=== PATIENT | male | born 1965 | race Caucasian/White ===

== ENCOUNTER → 2020-12-08 14:13 | Outpatient (CLI) | payer BC, SELFPAY ==
--- NOTE | 2020-12-08 | US_ITS ---
APPROVED REPORT Exam Type: Ankle to Brachial Index Parking Lot Attendant: Mari Baugh RT(R) Indications Rest Pain: Bilaterally Cold Sensitivity Patient states that his left 2nd, 3rd, 4th, and 5th digits become cold and discolored after standing for more than 15 minutes. Risk Factors Hyperlipidemia Diabetes Pressures/Indices Right Indices Left Indices Brachial 119.00 mmHg Brachial 115.00 mmHg Low Thigh 143.00 mmHg 1.20 Low Thigh 129.00 mmHg 1.08 Calf 159.00 mmHg 1.34 Calf 145.00 mmHg 1.22 Ankle(PT) 148.00 mmHg 1.24 Ankle(PT) 145.00 mmHg 1.22 Ankle(DP) 124.00 mmHg 1.04 Ankle(DP) 155.00 mmHg 1.30 Digit 98.00 mmHg 0.82 Digit 110.00 mmHg 0.92 Findings RT ANGELICA=1.24 LT ANGELICA=1.3 RT TBI=0.8 LT TBI=0.9 Normal pulses Normal waveforms Conclusion RT ANGELICA=1.24 LT ANGELICA=1.3 RT TBI=0.8 LT TBI=0.9 Normal pulses Normal waveforms Normal appearing resting noninvasive lower extremity arterial study. Electronically signed by : Ren Salazar MD 12/09/2020 14:48:57
== END ==
PROVIDERS: PCP Family Medicine; Visit Provider Family Medicine
DX: M79.605 Pain in left leg (principal); I73.9 Peripheral vascular disease, unspecified
CPT/HCPCS: 93923

== ENCOUNTER → 2021-12-17 09:20 | Outpatient (CLI) | payer BC, SELFPAY ==
--- NOTE | 2021-12-17 09:27 | XR_ITS ---
FINAL REPORT CLINICAL HISTORY: RT HIP PAIN FINDINGS: RIGHT HIP Two views of the right hip including an AP pelvis demonstrate no acute fracture or dislocation. The joint spaces appear normal. There are mild degenerative changes of both hips. No soft tissue abnormality is seen. IMPRESSION: Mild degenerative change of both hips. Reviewed, Interpreted and Dictated by Vamsi Madrigal III, MD Transcribed by Amee Badillo Authenticated by Vamsi Madrigal III, MD on 12/17/2021 10:09:30 AM [facility]
== END ==
PROVIDERS: PCP Family Medicine; Visit Provider Family Medicine
DX: M25.551 Pain in right hip (principal)
CPT/HCPCS: 73502

== ENCOUNTER 2023-03-07 00:25 | Emergency (ER) | payer BC, SELFPAY ==
[2023-03-07 00:37] VITALS: BP 152/85; PULSE 57; RESP 14; TEMP 36.2; O2SAT 94; BMI 25.1
[2023-03-07 01:03] LABS: Basophils # 0.1 K/mm3 (0-0.2); Basophils % 0.8 % (0.1-2.0); Chloride 96 mmol/L (98-107); Eosinophils # 0.2 K/mm3 (0.0-0.4); Eosinophils % 2.1 % (0.1-12.0); Hematocrit 49.3 % (42.0-52.0); Lymphocytes # 3.1 K/mm3 (0.7-4.5); Lymphocytes % 41.2 % (10-50); Mean Corpuscular HGB Conc 32.6 g/dL (31.8-35.4); Mean Corpuscular Hemoglobin 29.1 pg (27.0-31.2); Mean Corpuscular Volume 89.5 fl (80-94); Mean Platelet Volume 7.6 fl (7.4-10.4); Monocytes # 0.5 K/mm3 (0.1-1.0); Monocytes % 6.7 % (1.7-9.3); Neutrophils # 3.7 K/mm3 (1.8-7.8); Neutrophils % 49.2 % (37.0-80.0); Platelet Count 318 K/mm3 (142-424); Red Cell Distribution Width 12.4 % (11.5-17.5); White Blood Count 7.5 K/mm3 (4.8-10.8)
[2023-03-07 01:04] LABS: Potassium 3.4 mmoL/L (3.5-5.1); Sodium 139 mmol/L (136-145)
[2023-03-07 01:06] LABS: Alanine Aminotransferase 36 U/L (12-78); Albumin Level 4.4 g/dl (3.5-5.0); Albumin/Globulin Ratio 1.7 (1.1-1.8); Alkaline Phosphatase 66 U/L (38-126); Aspartate Amino Transferase 35 U/L (17-59); Bilirubin,Total 0.7 mg/dl (0.2-1.3); Blood Urea Nitrogen 21 mg/dl (9-20); Creatinine Clearance Estimated 100 mL/min (50-200); Estimated Glomerular Filt Rate 87 ml/min (>60); GFR (African American) 105 ML/MIN (>60); Globulin 2.6 g/dL (1.3-3.2)
[2023-03-07 01:07] LABS: Anion Gap 16.4 mEq/L (5-15); Calcium 8.7 mg/dl (8.4-10.2); Carbon Dioxide 30 mmol/L (22.0-30.0); Glucose 154 mg/dl (74-100)
--- NOTE | 2023-03-07 02:03 | HMH.EDALLER ---
Discharge Plan Disposition Patient Disposition: Home, Self-Care Condition: Good Prescriptions Prescriptions: New famotidine [Pepcid] 20 mg tablet 20 mg PO BID Qty: 20 0RF cetirizine [Zyrtec] 10 mg tablet 10 mg PO DAILY Qty: 20 0RF prednisone 20 mg tablet 20 mg PO BID 5 Days Qty: 10 0RF Referrals Follow up/Referrals: Schuyler Salcido MD [Primary Care Provider] - See instructions Clinical Impressions Clinical Impression: Allergic reaction, Tick bite Discharge ED Provider: Tracey Boyce Allergic React/Insect Bite HPI General Chief complaint: Allergic Reaction Stated complaint: Possible allergic reaction-tick bite Time Seen by Provider: 03/07/23 00:28 Mode of Arrival - ED Triage: Family Vehicle Source of Information: Patient and Spouse Limitations: No Limitations History of Present Illness HPI narrative: Is a 57-year-old occasion male who is here secondary to 2 things. Monday night he noticed a tick bite to his right shoulder blade region on the back. Patient stated that he squeezed it and it popped out. Patient then this evening developed a diffuse rash to his upper extremity chest belly back and lower extremity. Patient stated it was itching. Then he noticed that he might have some issue with difficulty breathing that is why he brought himself in the ER. Patient denies difficulty swallowing, tongue swelling or lip swelling. He has not had any wheezing with difficulty breathing. complaint: allergic reaction and hives Onset (ago): hour(s) Exposure: unknown Symptoms: rash and itching Treatment prior to arrival: none Allergies Allergy/AdvReac Type Severity Reaction Status Date / Time PENICILLIN Allergy Intermediate I-HIVES Uncoded 10/17/17 14:22 Previous Allergic Reaction History: none Severity: moderate Related Data Previous Rx's Medication Instructions Recorded cetirizine 10 mg tablet (Zyrtec) 10 mg PO DAILY #20 tabs 03/07/23 famotidine 20 mg tablet (Pepcid) 20 mg PO BID #20 tabs 03/07/23 prednisone 20 mg tablet 20 mg PO BID 5 days #10 tabs 03/07/23 [facility] Disclaimer: The information contained in this section may have been updated after the patient was seen, as this information can be updated by other users. Social History Smoking Status: Never smoker alcohol intake: never current occupational status: employed Travel in the last 8 weeks: None ROS Obtained: Yes All systems reviewed & no additional complaints except as documented Allergic/Immunologic Allergic/Immunologic: Reports urticaria Physical Exam General General appearance: alert and in distress Head Head exam: atraumatic, normocephalic and normal inspection Eye Eye exam: Present normal appearance, PERRL and EOMI; Absent scleral icterus or conjunctival redness ENT ENT exam: Present normal exam, normal oropharynx and mucous membranes moist Neck Neck exam: Present normal inspection, full ROM and trachea midline Chest Chest inspection: Present normal inspection and symmetric chest wall rise Respiratory Respiratory exam: Present normal lung sounds bilaterally Cardiovascular Cardiovascular exam: Present regular rate, normal rhythm, normal heart sounds, +S1 and +S2 Abdominal Exam Abdominal exam: Present soft and normal bowel sounds; Absent distention, tenderness, guarding, rebound or rigidity Extremities Exam Extremities exam: Present normal inspection, full ROM, tenderness (Posterior shoulder region small area that is a bite with no tick or foreign body seen), normal capillary refill and edema Back Exam Back exam: Present normal inspection and full ROM; Absent tenderness, CVA tenderness (R) or CVA tenderness (L) Neurological Exam Neurological exam: Present alert, oriented X3 and normal gait Psychiatric Psychiatric exam: Present normal affect and normal mood Skin Skin exam: Present rash and erythema; Absent warm, dry, intact, normal color, cyanosis,
[2023-03-07 02:26] VITALS: BP 134/78; PULSE 61; RESP 14; TEMP 36.2; O2SAT 95
== END 2023-03-07 02:34 | disposition home or self-care (01) ==
PROVIDERS: Emergency Provider Emergency Medicine; PCP Family Medicine
DX: S40.261A Insect bite (nonvenomous) of right shoulder, initial encounter (principal); R21 Rash and other nonspecific skin eruption; W57.XXXA Bitten or stung by nonvenomous insect and other nonvenomous arthropods, initial encounter
CPT/HCPCS: 80053; 85025; 96361; 96374; 96375; 99284

== ENCOUNTER 2024-11-14 19:46 | Observation (INO) | payer BC, SELFPAY ==
[2024-11-14 19:47] VITALS: BP 148/74; PULSE 59; RESP 18; TEMP 36.6; O2SAT 98; BMI 26.2
[2024-11-14 21:01] VITALS: BP 138/77; PULSE 64; O2SAT 98
--- NOTE | 2024-11-14 21:05 | CT_ITS ---
PROCEDURE INFORMATION: Exam: CT Head Without Contrast Exam date and time: 11/14/2024 10:16 PM Age: 59 years old Clinical indication: Other: Vertigo TECHNIQUE: Imaging protocol: Computed tomography of the head without contrast. Radiation optimization: All CT scans at this facility use at least one of these dose optimization techniques: automated exposure control; mA and/or kV adjustment per patient size (includes targeted exams where dose is matched to clinical indication); or iterative reconstruction. COMPARISON: CT HEAD/BRAIN WO CON 11/14/2024 10:16 PM FINDINGS: Brain: Normal. No hemorrhage. Unremarkable white matter. No mass effect. Cerebral ventricles: No ventriculomegaly. Paranasal sinuses: Visualized sinuses are unremarkable. No fluid levels. Mastoid air cells: Visualized mastoid air cells are well aerated. Bones: Unremarkable. No acute fracture. Soft tissues: Unremarkable. IMPRESSION: No acute intracranial abnormality.
--- NOTE | 2024-11-14 21:05 | CT_ITS ---
PROCEDURE INFORMATION: Exam: CTA Neck With Contrast Exam date and time: 11/14/2024 10:19 PM Age: 59 years old Clinical indication: Vertigo TECHNIQUE: Imaging protocol: Computed tomographic angiography of the neck with contrast. Exam focused on the cervical segments of the vasculature. 3D rendering (Not supervised by radiologist): MIP and/or 3D reconstructed images were created by the technologist. Radiation optimization: All CT scans at this facility use at least one of these dose optimization techniques: automated exposure control; mA and/or kV adjustment per patient size (includes targeted exams where dose is matched to clinical indication); or iterative reconstruction. Contrast material: ISOVUE; Contrast volume: 80 ml; Contrast route: INTRAVENOUS (IV); COMPARISON: CT ANGIO HEAD 11/14/2024 10:19 PM FINDINGS: Right common carotid artery: No stenosis. No dissection or occlusion. Right internal carotid artery: No stenosis of the extracranial segment. No dissection or occlusion. Right external carotid artery: No occlusion or stenosis of the origin. Left common carotid artery: No stenosis. No dissection or occlusion. Left internal carotid artery: No stenosis of the extracranial segment. No dissection or occlusion. Left external carotid artery: No occlusion or stenosis of the origin. Right vertebral artery: No stenosis. No dissection or occlusion. Left vertebral artery: No stenosis. No dissection or occlusion. Soft tissues: Normal. No significant soft tissue swelling. Bones/joints: Mild degenerative disc disease C4-C7 levels. C2-C3 anterior/posterior congenital fusion. Other findings: No visible atheromatous plaquing in the carotid or vertebral artery systems. IMPRESSION: No visible arterial stenosis/occlusion. REFERENCES: NASCET CRITERIA. The degree of stenosis in the cervical segment of the internal carotid artery is based on NASCET criteria. Normal is no stenosis. Mild is less than 50% stenosis. Moderate is 50-69% stenosis. Severe is 70% to 99% stenosis. Total occlusion is no detectable patent lumen.
--- NOTE | 2024-11-14 21:05 | CT_ITS ---
PROCEDURE INFORMATION: Exam: CTA Head With Contrast, Arteriography Exam date and time: 11/14/2024 10:19 PM Age: 59 years old Clinical indication: Vertigo TECHNIQUE: Imaging protocol: Computed tomographic angiography of the head with contrast. Exam focused on the arteries. 3D rendering (Not supervised by radiologist): MIP and/or 3D reconstructed images were created by the technologist. Radiation optimization: All CT scans at this facility use at least one of these dose optimization techniques: automated exposure control; mA and/or kV adjustment per patient size (includes targeted exams where dose is matched to clinical indication); or iterative reconstruction. Contrast material: ISOVUE; Contrast volume: 80 ml; Contrast route: INTRAVENOUS (IV); COMPARISON: CT HEAD/BRAIN WO CON 11/14/2024 10:16 PM FINDINGS: ANTERIOR CIRCULATION: Right internal carotid artery: Intracranial segment is patent with no significant stenosis. No aneurysm. Right middle cerebral artery: No occlusion or significant stenosis. No aneurysm. Right anterior cerebral artery: No occlusion or significant stenosis. No aneurysm. Left internal carotid artery: Intracranial segment is patent with no significant stenosis. No aneurysm. Left middle cerebral artery: No occlusion or significant stenosis. No aneurysm. Left anterior cerebral artery: No occlusion or significant stenosis. No aneurysm. POSTERIOR CIRCULATION: Right vertebral artery: No occlusion or significant stenosis. No aneurysm. Left vertebral artery: No occlusion or significant stenosis. No aneurysm. Basilar artery: No occlusion or significant stenosis. No aneurysm. Right posterior cerebral artery: No occlusion or significant stenosis. No aneurysm. Left posterior cerebral artery: No occlusion or significant stenosis. No aneurysm. Brain: No definite mass, mass effect, or midline shift. Cerebral ventricles: No ventriculomegaly. Bones/joints: Unremarkable. No acute fracture. Soft tissues: Unremarkable. Venous structures appear normal. Other findings: Large caliber bilateral posterior communicating arteries IMPRESSION: No large vessel occlusion/stenosis.
--- NOTE | 2024-11-14 21:13 | HMH.EDGENADL ---
Discharge Plan Disposition Patient Disposition: Admitted Condition: Good Clinical Impressions Clinical Impression: Vertigo Discharge ED Provider: Amanda Mora General Adult HPI General Chief complaint: Weakness Stated complaint: weak dizzy Time Seen by Provider: 11/14/24 20:58 Mode of Arrival: Wheelchair Source of Information: Patient and Spouse Limitations: Physical Limitations Description of Symptoms (Recalled from ER Triage Doc. by RN): Pt presents to the ED for weakness and dizziness X 4 hours. Pt states this has happened before but usually goes away faster. Pt has been putting peroxide in his per Dr. Munoz's orders. Pt states this does make him dizzy. He's unsure if that's why he's dizzy tonight. Pt does not have pain and is bedside. Pt is A&O*4 and has no deficits at this time. History of Present Illness HPI narrative: This patient is a 59-year-old male who has a history of alpha gal syndrome and diabetes presenting to the emergency department for evaluation with concern for dizziness. Patient states that he is been having a lot of ear and sinus issues, recently treated for nose infection with Dr. Munoz. He notes that he also has wax impaction in his ears for which he has been using peroxide. Today, he states that he experienced sudden onset dizziness/vertigo as well as nausea that is worse with any sort of movement or position change. He is fine if he lies still. He notes it was so bad he could not walk into the house because his balance was off. He has no vision changes, numbness, tingling, unilateral weakness, or other concerns. He states this has happened before with ear issues but usually goes away faster Related Data Previous Rx's ?Medication ?Instructions ?Recorded cetirizine 10 mg tablet (Zyrtec) 10 mg PO DAILY #20 tabs 03/07/23 famotidine 20 mg tablet (Pepcid) 20 mg PO BID #20 tabs 03/07/23 prednisone 20 mg tablet 20 mg PO BID 5 days #10 tabs 03/07/23 cetirizine 10 mg tablet (Zyrtec) 10 mg PO DAILY #30 tabs 11/14/24 fluticasone propionate 50 1 spray intranasal DAILY #16 grams 11/14/24 mcg/actuation nasal spray,suspension (Flonase Allergy Relief) meclizine 25 mg tablet 25 mg PO QID PRN dizziness #20 tabs 11/14/24 prednisone 20 mg tablet 40 mg (2 x 20 mg) PO DAILY 4 days 11/14/24 #8 tabs Allergies Allergy/AdvReac Type Severity Reaction Status Date / Time PENICILLIN Allergy Intermediate I-HIVES Uncoded 10/17/17 14:22 [facility] Disclaimer: The information contained in this section may have been updated after the patient was seen, as this information can be updated by other users. Social History Smoking Status: Unknown if ever smoked alcohol intake: never current occupational status: employed Travel in the last 8 weeks: None Have you lived/traveled outside [place] in past 30 days?: No Contact w/someone who lives/traveled outside US past 30 days?: No Exposure to someone with infectious disease in past 14 days?: No Do you have a fever (greater than 100.4 F or 38 C)?: No Have you tested positive for COVID-19: No Exposed to someone with COVID-19 in past 14 days?: No Do you have a sore throat?: No Do you have a cough?: No Do you have any weakness?: Yes Do you have any diarrhea?: No Are you experiencing any unusual bleeding?: No Do you have any muscle aches/pain?: No Do you have any abdominal pain?: No Are you experiencing loss of taste or smell?: No Other Medical History Have you received the Flu Vaccine for this season: Yes Have you received the Pneumonia Vaccine: No ROS Obtained: Yes All systems reviewed & no additional complaints except as documented Physical Exam General General appearance: alert and in no apparent distress Head Head exam: atraumatic and normocephalic Eye Eye exam: Present normal appearance, PERRL, EOMI and nystagmus (Horizontal unidirectional beating nystagmus that is fatigable) ENT ENT exam: Present normal exam, normal oropharynx, mucous membranes moist, normal external ear exam and other (Unable to visualize tympanic membranes bilaterally secondary to wax impaction) Neck Neck exam: Present normal inspection, full ROM and trachea midline; Absent tenderness Chest Chest inspection: Present normal inspection and symmetric chest wall rise; Absent tenderness Respiratory Respiratory exam: Present normal lung sounds bilaterally; Absent respiratory distress, wheezes, stridor or accessory muscle use Cardiovascular Cardiovascular exam: Present regular rate and normal rhythm Abdominal Exam Abdominal exam: Present soft; Absent distention, tenderness or guarding Extremities Exam Extremities exam: Present normal inspection, full ROM and normal capillary refill; Absent tenderness or edema Back Exam Back exam: Present normal inspection and full ROM; Absent tenderness Neurological Exam Neurological exam: Present alert, oriented X3, CN II-XII intact and other (Neurologically intact, intact coordination); Absent motor sensory deficit Psychiatric Psychiatric exam: Present normal affect and normal mood Skin Skin exam: Present warm and dry Medical Decision Making Medical Records Medical records reviewed: Yes I reviewed the patient's medical records. Screening: Per USPSTF and CDC recommendations, given the prevalence of disease in our region, it is our hospital?s policy to screen for HIV and viral Hepatitis for all patients aged 18 and over and those with ongoing risk factors. Hasmukh Inquiry Pt receiving controlled substance: No Vital Signs: 11/14/24 19:47 11/14/24 21:01 11/14/24 21:31 Temperature 97.9 F Temperature Source Oral Pulse Rate 64 57 L Pulse Rate [Left] 59 L Respiratory Rate 18 Blood Pressure 138/77 122/68 Blood Pressure [Right Arm] 148/74 H Blood Pressure Mean 86 82 Blood Pressure Mean [Right Arm] 98 02 Sat by Pulse Oximetry 98 98 100 Oxygen Delivery Method Room Air 11/14/24 22:00 Temperature Temperature Source Pulse Rate 53 L Pulse Rate [Left] Respiratory Rate Blood Pressure 124/66 Blood Pressure [Right Arm] Blood Pressure Mean 76 Blood Pressure Mean [Right Arm] 02 Sat by Pulse Oximetry 97 Oxygen Delivery Method Lab Data Lab results reviewed: Yes I reviewed the patient's lab results. Lab Results 11/14/24 20:15: WBC 14.3 H, RBC 4.98, Hgb 15.0, Hct 45.2, MCV 90.8, MCH 30.1, MCHC 33.2, RDW 12.0, Plt Count 292, MPV 11.3 H, Neut % (Auto) 85.4 H, Lymph % (Auto) 8.5 L, [place] % (Auto) 4.3, Eos % (Auto) 0.7, Baso % (Auto) 0.5, Neut # (Auto) 12.2 H, Lymph # (Auto) 1.2, Cuming # (Auto) 0.6, Eos # (Auto) 0.1, Baso # (Auto) 0.1, Sodium 135 L, Potassium 4.0, Chloride 104, Carbon Dioxide 25, Anion Gap 10.0, BUN 20, Creatinine 0.80, Estimated Creat Clear 115, Estimated GFR 99, Est GFR ( Amer) 119, Glucose 141 H, Calcium 9.2, Magnesium 1.9, Total Bilirubin 1.1, AST 29, ALT 23, Alkaline Phosphatase 81, Troponin I < 0.01, Total Protein 6.8, Albumin 4.5, Globulin 2.3, Albumin/Globulin Ratio 2.0 H, TSH 0.87, Thyroxine (T4) 14.8 H, HCV Ab GIGI w/Rflx PCR Qn Negative, HIV Ag/Ab Combo Qual Negative 11/14/24 20:15 11/14/24 20:15 Orders (Tests/Meds): ED MEDICATIONS Generic Name Dose Route Start Last Admin Trade Name Grant PRN Reason Stop Dose Admin Meclizine HCl 25 mg 11/15/24 00:26 Meclizine 25mg Tablet PO 12/15/24 00:25 Q8HP PRN Vertigo Sodium Chloride 10 ml 11/14/24 22:26 11/14/24 22:26 Sodium Chloride 0.9% 10ml Syr (Rad Only) IV 12/14/24 22:25 10 ml NEEDED PRN Administration Maintain IV Site Discontinued Medications Generic Name Dose Route Start Last Admin Trade Name Grant PRN Reason Stop Dose Admin Diazepam 5 mg 11/14/24 23:26 11/14/24 23:38 Diazepam 5mg Tablet PO 11/14/24 23:27 5 mg ONCE ONE Administration Fluticasone Propionate 2 spray 11/14/24 21:06 11/14/24 21:29 Fluticasone Prop 50mcg Nasal [place] 16gm NS 11/14/24 21:07 2 sprays ONCE ONE Administration Iopamidol 80 ml 11/14/24 22:26 11/14/24 22:27 Iopamidol-370 (76%);100ml Bottle IV 11/14/24 22:27 80 ml ONCE ONE Administration Meclizine HCl 25 mg 11/14/24 21:06 11/14/24 21:21 Meclizine 25mg Tablet PO 11/14/24 21:07 25 mg ONCE ONE Administration Prednisone 40 mg 11/14/24 21:06 01/16/25 21:21 Prednisone 20mg Tab PO 11/14/24 21:07 40 mg ONCE ONE Administration Scopolamine 1 each 11/14/24 23:26 11/14/24 23:38 Scopolamine 1.5mg/72hrs Patch TD 11/14/24 23:27 1 each ONCE ONE Administration Sodium Chloride 50 ml 11/14/24 22:26 11/14/24 22:27 0.9 % Sodium Chloride 50 Ml Vial IV 11/14/24 22:27 50 ml ONCE ONE Administration ORDERS Category Date Time Status CT angio head Stat Cat Scan 11/14/24 21:[address] angio neck Stat Cat Scan 11/14/24 21:[address] head/brain wo con Stat Cat Scan 11/14/24 21:05 Completed CBC w/Auto Diff [Complete Blood Count Auto Diff] Stat Lab 11/14/24 20:15 Completed CMP [Comprehensive Metabolic Panel] Stat Lab 11/14/24 20:15 Completed HIV Combo Routine Lab 11/14/24 20:15 Completed Hepatitis C Ab Qual. W/ RFX Routine Lab 11/14/24 20:15 Completed MAG [Magnesium] Stat Lab 11/14/24 20:15 Completed T4 (Thyroxine) Stat Lab 11/14/24 20:15 Completed TSH [Thyroid Stimulating Hormone] Stat Lab 11/14/24 20:15 Completed Trop I [Troponin I] Stat Lab 11/14/24 20:15 Completed Troponin I Q3H Lab 11/15/24 00:21 Received Troponin I Q3H Lab 11/15/24 03:15 Ordered ECG Data Tracing #1: I reviewed this ECG and interpreted as documented below: Sinus bradycardia with a ventricular to 57 bpm. Bundle branch block. No acute STEMI. ECG initial impression date: 11/15/24 ECG initial impression time: 21:29 Medical Decision Narrative: In summary, this patient is a 59-year-old male presenting to the Emergency Department for evaluation of dizziness. Differential diagnoses considered include but are not limited to BPPV, M?ni?re's disease, vestibular neuritis, CVA. Ruling out the most morbid conditions drove assessment. It should be noted patient's history includes diabetes and alpha gal syndrome which may or may not be at goal therapy. This complicates all aspects of care by increasing patient's risk for morbidity. On exam, the patient is very well-appearing. He is neurologically intact with no discoordination. I am unable to visualize tympanic membranes bilaterally secondary to wax impaction, however he does not want us to flush his ears because he has worsening symptoms with that in the past. He has fatigable unidirectional horizontal beating nystagmus which is reassuring. Hints exam is reassuring for peripheral cause of vertigo as opposed to central. Given this and the lack of neurologic symptoms otherwise, I do not feel that stroke is likely, but given his risk factors with diabetes we will obtain stroke CT scans just to be on the safe side. Workup included CBC, CMP, troponin, EKG, CT head, CT angiogram head and neck. He was given oral meclizine, prednisone, and intranasal Flonase for symptomatic improvement. I independently interpreted CT scans prior to the radiologist read and noted obvious large space-occupying brain lesion, no intracranial hemorrhage. Please see their read for final interpretation. CT scans reassuring. Labs were obtained that demonstrated mild leukocytosis which is nonspecific. He also has mild hyponatremia. T4 was mildly elevated with normal TSH.. On reassessment, patient had minimal improvement after administration of interventions above. I tried Lorenzo maneuver to both sides without good improvement. I then also tried oral Valium and a scopolamine patch. Overall, patient did not have any improvement in his symptoms and is not able to trial ambulation as he states he is too dizzy to walk. Given this, I called and had an interactive discussion with his primary care provider, Dr. Munoz, who is admitting the patient for further evaluation and management in stable condition. Critical Care Critical Care Time Critical Care Time: No
[2024-11-14] MEDS: predniSONE 20MG TAB 40 MG PO (21:21)
[2024-11-14] MEDS: MECLIZINE 25MG TABLET 25 MG PO (21:21)
--- NOTE | 2024-11-14 21:21 | ECG_ITS ---
APPROVED REPORT Exam: Resting ECG HR:57 bpm ECG Measurements Heart Rate 57 AXES IL 145 P 56 QRSd 133 QRS 89 QT 461 T 46 QTc 455 Conclusion SINUS BRADYCARDIA RIGHT BUNDLE BRANCH BLOCK [120+ ms QRS DURATION, UPRIGHT V1, 40+ ms S IN I/aVL/V4/V5/V6] Electronically signed by : DAILY HORTON, 11/15/2024 00:50:32
[2024-11-14] MEDS: FLUTICASONE PROP 50MCG NASAL SPRAY 16GM 2 SPRAY NS (21:29)
[2024-11-14 21:31] VITALS: BP 122/68; PULSE 57; O2SAT 100
[2024-11-14 21:43] LABS: HIV Combo NEGATIVE (Negative)
[2024-11-14 21:51] LABS: Hepatitis C Ab Qual. W/ RFX NEGATIVE (Negative)
[2024-11-14 21:55] LABS: Basophils # 0.1 K/mm3 (0-0.2); Basophils % 0.5 % (0.1-2.0); Eosinophils # 0.1 K/mm3 (0.0-0.4); Eosinophils % 0.7 % (0.1-12.0); Hematocrit 45.2 % (42.0-52.0); Lymphocytes # 1.2 K/mm3 (0.7-4.5); Lymphocytes % 8.5 % (10-50); Mean Corpuscular HGB Conc 33.2 g/dL (31.8-35.4); Mean Corpuscular Hemoglobin 30.1 pg (27.0-31.2); Mean Corpuscular Volume 90.8 fl (80-94); Mean Platelet Volume 11.3 fl (7.4-10.4); Monocytes # 0.6 K/mm3 (0.1-1.0); Monocytes % 4.3 % (1.7-9.3); Neutrophils # 12.2 K/mm3 (1.8-7.8); Neutrophils % 85.4 % (37.0-80.0); Platelet Count 292 K/mm3 (142-424); Red Blood Count 4.98 M/mm3 (4.60-6.20); White Blood Count 14.3 K/mm3 (4.8-10.8)
[2024-11-14 21:59] LABS: Albumin Level 4.5 g/dl (3.5-5.0); Chloride 104 mmol/L (98-107)
[2024-11-14 22:00] VITALS: BP 124/66; PULSE 53; O2SAT 97
[2024-11-14 22:00] LABS: Sodium 135 mmol/L (136-145)
[2024-11-14 22:02] LABS: Alanine Aminotransferase 23 U/L (12-78); Alkaline Phosphatase 81 U/L (38-126); Aspartate Amino Transferase 29 U/L (17-59); Bilirubin,Total 1.1 mg/dl (0.2-1.3); Blood Urea Nitrogen 20 mg/dl (9-20); Carbon Dioxide 25 mmol/L (22.0-30.0); Creatinine Clearance Estimated 115 mL/min (50-200); Estimated Glomerular Filt Rate 99 ml/min (>60); GFR (African American) 119 ML/MIN (>60)
[2024-11-14 22:03] LABS: Calcium 9.2 mg/dl (8.4-10.2); Globulin 2.3 g/dL (1.3-3.2); Glucose 141 mg/dl (74-100); Magnesium 1.9 mg/dl (1.6-2.3); Total Protein,Serum 6.8 g/dl (6.3-8.2)
[2024-11-14 22:16] LABS: Troponin I < 0.01 ng/ml (0.00-0.034)
[2024-11-14 22:20] LABS: T4 (Thyroxine) 14.8 ug/dl (5.53-11.0)
[2024-11-14] MEDS: SODIUM CHLORIDE 0.9% 10ML SYR (RAD ONLY) 10 ML IV (22:26)
[2024-11-14] MEDS: 0.9 % SODIUM CHLORIDE 50 ML VIAL IV (22:27)
[2024-11-14] MEDS: IOPAMIDOL-370 (76%);100ML BOTTLE 80 ML IV (22:27)
[2024-11-14 22:33] LABS: Thyroid Stimulating Hormone 0.87 uIU/mL (0.465-4.68)
[2024-11-14] MEDS: SCOPOLAMINE 1.5MG/72HRS PATCH 1 EACH TD (23:38)
[2024-11-14] MEDS: diazePAM 5MG TABLET 5 MG PO (23:38)
--- NOTE | 2024-11-15 00:45 | PC.NURSE ---
Report called to Makayla
[2024-11-15 00:59] LABS: Troponin I < 0.01 ng/ml (0.00-0.034)
--- NOTE | 2024-11-15 01:20 | PC.NURSE ---
Patient arrived to floor via stretcher from ED at 01:19.
[2024-11-15 01:25] VITALS: BP 134/64; PULSE 57; RESP 16; TEMP 36.6; O2SAT 95; BMI 24.9
[2024-11-15 01:40] VITALS: BP 134/64; PULSE 65; RESP 20; TEMP 36.9; O2SAT 95
[2024-11-15 03:56] LABS: Troponin I < 0.01 ng/ml (0.00-0.034)
[2024-11-15 04:00] VITALS: BP 133/90; PULSE 58; RESP 16; TEMP 36.6; O2SAT 95; BMI 24.9
[2024-11-15 08:00] VITALS: BP 122/55; PULSE 53; RESP 18; TEMP 36.4; O2SAT 94
--- NOTE | 2024-11-15 08:30 | P.PN_ITS ---
Subjective *Date: 11/15/24 *Time: 08:58 Interval history: Mr. Barron is a 59-year-old male who had abrupt onset of vertigo around 4 PM yesterday. He has never had anything like this before. He states his mother does have a history of inner ear infection with vertigo. He has been sick recently with a sinus infection and was treated in the office of [facility]. He states the infection was improving before this vertigo hit. He presented to the ER for evaluation. He had a head CT, head CTA, and neck CTA all of which were normal. He was given meclizine, prednisone, diazepam, and a scopolamine patch was placed. This morning, the patient states his dizziness has improved but he has not been up moving. He is hungry and would like to try to eat. Medical Exam Vital signs and Labs for Last 24 Hours: Vital Signs Temp Pulse Pulse Resp BP BP Pulse Ox 11/15/24 06:48 11/15/24 05:00 11/15/24 04:00 97.8 F 58 L 16 133/90 95 11/15/24 02:55 11/15/24 01:40 98.4 F 65 20 134/64 11/15/24 01:30 11/15/24 01:25 97.8 F 57 L 16 134/64 95 11/15/24 01:00 11/14/24 22:00 53 L 124/66 97 11/14/24 21:31 57 L 122/68 100 11/14/24 21:01 64 138/77 98 11/14/24 19:47 97.9 F 59 L 18 148/74 H 98 O2 Del Method 11/15/24 06:48 Room Air 11/15/24 05:00 Room Air 11/15/24 04:00 Room Air 11/15/24 02:55 Room Air 11/15/24 01:40 Room Air 11/15/24 01:30 Room Air 11/15/24 01:25 Room Air 11/15/24 01:00 Room Air 11/14/24 22:00 11/14/24 21:31 11/14/24 21:01 11/14/24 19:47 Room Air Intake and Output 11/14/24 11/15/24 11/15/24 19:59 03:59 11:59 Output Total 1400 / 1400 Balance -1400 / -1400 Output: Output, Urine Amount 1400 / 1400 Other: Number of Unmeasured Voids 0 Weight 183 lb 174 lb 1.6 oz 174 lb 1.585 oz Patient Weight 11/15/24 11:59 Weight 174 lb 1.585 oz Laboratory Results - last 24 hr 11/14/24 20:15: WBC 14.3 H, RBC 4.98, Hgb 15.0, Hct 45.2, MCV 90.8, MCH 30.1, MCHC 33.2, RDW 12.0, Plt Count 292, MPV 11.3 H, Neut % (Auto) 85.4 H, Lymph % (Auto) 8.5 L, [place] % (Auto) 4.3, Eos % (Auto) 0.7, Baso % (Auto) 0.5, Neut # (Auto) 12.2 H, Lymph # (Auto) 1.2, [place] # (Auto) 0.6, Eos # (Auto) 0.1, Baso # (Auto) 0.1, Sodium 135 L, Potassium 4.0, Chloride 104, Carbon Dioxide 25, Anion Gap 10.0, BUN 20, Creatinine 0.80, Estimated Creat Clear 115, Estimated GFR 99, Est GFR ( Amer) 119, Glucose 141 H, Calcium 9.2, Magnesium 1.9, Total Bilirubin 1.1, AST 29, ALT 23, Alkaline Phosphatase 81, Troponin I < 0.01, Total Protein 6.8, Albumin 4.5, Globulin 2.3, Albumin/Globulin Ratio 2.0 H, TSH 0.87, Thyroxine (T4) 14.8 H, HCV Ab GIGI w/Rflx PCR Qn Negative, HIV Ag/Ab Combo Qual Negative 11/15/24 00:21: Troponin I < 0.01 11/15/24 03:20: Troponin I < 0.01 I & O for Labs for Last 24 Hours: Intake & Output 11/12/24 11/13/24 11/14/24 11/15/24 11:59 11:59 11:59 11:59 Output Total 1399 / 1400 Balance -1399 / -1400 Weight 174 lb 1.585 oz Constitutional: Present no acute distress Head: Present atraumatic Respiratory: Present CTA bilaterally Cardiac: Present Reg Rate and Rhythm GI: Present soft and normal bowel sounds; Absent distention or tenderness Extremities: Absent edema, clubbing or cyanosis Skin: Present intact Neuro: Present Cranial Nerve 2-12 Intact, alert, awake and oriented x 3 Assessment and Plan *Assessment and plan (1) Vertigo: Status: Acute Category: Medical Code(s): R42 - Dizziness and giddiness (2) Alpha-gal syndrome: Status: Acute Category: Medical Code(s): Z91.014 - Allergy to mammalian meats Plan Will try and get patient up and see if he can move around the room without dizziness. Will start a diet this am. Likely home around lunch. H&P/Discharge summary to follow. Dr. Munoz entry - Saw patient, agree with above note.
--- NOTE | 2024-11-15 09:32 | HMH.PHAINT1 ---
Pharmacy Intervention Comments: VERIFIED MEDICATIONS WITH OUTPATIENT PHARMACY. CONFIRMED MEDICATIONS WITH PATIENT.
--- NOTE | 2024-11-15 11:55 | PC.NURSE ---
pt tolerated breakfast well with no complaints of n/v. pt ambulated from the bed to bathroom independently with no complaints of dizziness, fatigue, or ringing in ears. pt states he feels much better today than when he came in.
--- NOTE | 2024-11-15 13:39 | HMH.PHAINT1 ---
Pharmacy Intervention Comments: COUNSELED PATIENT ON MEDICATIONS PRIOR TO DISCHARGE. PATIENT VERBALIZED UNDERSTANDING.
--- NOTE | 2024-11-15 13:50 | P.HPDS_ITS ---
General Admission date:: 11/15/24 Discharge date: 11/15/24 *Admission Date: 11/15/24 *Chief complaint: dizziness *History of present illness: Mr. Barron is a 59-year-old male who had abrupt onset of vertigo around 4 PM yesterday. He has never had anything like this before. He states his mother does have a history of inner ear infection with vertigo. He has been sick recently with a sinus infection and [facility] He states the infection was improving before this vertigo hit. He presented to the ER for evaluation. He had a head CT, head CTA, and neck CTA all of which were normal. He was given meclizine, prednisone, diazepam, and a scopolamine patch was placed. This morning, the patient states his dizziness has improved but he has not been up moving. He is hungry and would like to try to eat. [facility] Disclaimer: The information contained in this section may have been updated after the patient was seen, as this information can be updated by other users. Medical History (Updated 11/15/24 @ 08:[address]) Tick bite Wedge compression fracture of L1 vertebra Concussion Alpha-gal syndrome Social History (Updated 11/15/24 @ 01:36 by Miroslava Berg RN) Smoking Status: Unknown if ever smoked alcohol intake: never current occupational status: employed Travel in the last 8 weeks: None Have you lived/traveled outside [place] in past 30 days?: No Contact w/someone who lives/traveled outside US past 30 days?: No Exposure to someone with infectious disease in past 14 days?: No Do you have a fever (greater than 100.4 F or 38 C)?: No Have you tested positive for COVID-19: No Exposed to someone with COVID-19 in past 14 days?: No Do you have a sore throat?: No Do you have a cough?: No Do you have any weakness?: Yes Are you experiencing any nausea/vomitting?: No Do you have any diarrhea?: No Are you experiencing any unusual bleeding?: No Do you have any muscle aches/pain?: No Do you have any abdominal pain?: No Are you experiencing loss of taste or smell?: No Other Medical History Have you received the Flu Vaccine for this season: No Have you received the Pneumonia Vaccine: No Review of Systems Constitutional Constitutional: Denies fatigue, Denies fever(s), Reports headache(s) and Denies weakness Eyes Eyes: Denies blurry vision and Denies diplopia ENT Ears, Nose, Mouth, and Throat: Reports dizziness, Reports headache(s), Denies nasal congestion and Denies sore throat *Cardiovascular Cardiovascular: Denies chest pain and Denies dyspnea *Respiratory Respiratory: Denies cough and Denies dyspnea *Gastrointestinal Gastrointestinal: Denies abdominal pain, Reports nausea and Denies vomiting *Genitourinary Genitourinary: Denies difficulty urinating and Denies dysuria *Musculoskeletal Musculoskeletal: Denies arthralgias *Neurologic Neurologic: Reports dizziness, Reports headache(s) and Denies weakness Endocrine Endocrine: Denies fatigue Exam Data for Last 24 hours Vital signs and Labs for Last 24 Hours: Temp Pulse Resp BP Pulse Ox O2 Del Method 97.5 F L 53 L 18 122/55 L 94 L Room Air 11/15/24 08:00 11/15/24 08:00 11/15/24 08:00 11/15/24 08:00 11/15/24 08:00 11/15/24 13:00 Laboratory Results - last 24 hr 11/14/24 20:15: WBC 14.3 H, RBC 4.98, Hgb 15.0, Hct 45.2, MCV 90.8, MCH 30.1, MCHC 33.2, RDW 12.0, Plt Count 292, MPV 11.3 H, Neut % (Auto) 85.4 H, Lymph % (Auto) 8.5 L, [place] % (Auto) 4.3, Eos % (Auto) 0.7, Baso % (Auto) 0.5, Neut # (Auto) 12.2 H, Lymph # (Auto) 1.2, [place] # (Auto) 0.6, Eos # (Auto) 0.1, Baso # (Auto) 0.1, Sodium 135 L, Potassium 4.0, Chloride 104, Carbon Dioxide 25, Anion Gap 10.0, BUN 20, Creatinine 0.80, Estimated Creat Clear 115, Estimated GFR 99, Est GFR ( Amer) 119, Glucose 141 H, Calcium 9.2, Magnesium 1.9, Total Bilirubin 1.1, AST 29, ALT 23, Alkaline Phosphatase 81, Troponin I < 0.01, Total Protein 6.8, Albumin 4.5, Globulin 2.3, Albumin/Globulin Ratio 2.0 H, TSH 0.87, Thyroxine (T4) 14.8 H, HCV Ab GIGI w/Rflx PCR Qn Negative, HIV Ag/Ab Combo Qual Negative 11/15/24 00:21: Troponin I < 0.01 11/15/24 03:20: Troponin I < 0.01 I & O for Last 24 hours: Intake & Output 11/13/24 11/14/24 11/15/24 11/16/24 11:59 11:59 11:59 11:59 Output Total 1400 / 1400 Balance -1400 / -1400 Weight 174 lb 1.585 oz Constitutional Constitutional: no acute distress *Routine HEENT Exam Head: Present normocephalic and atraumatic Eye: Present EOMI and PERRL ENT: Present mucous membranes moist *Routine Neck Exam Neck: Present supple and full ROM *Routine Respiratory Exam Respiratory: Present CTA bilaterally *Routine Cardiovascular Exam Cardiovascular: Present RRR *Routine Abdominal Exam Abdominal: Present soft and normoactive bowel sounds; Absent tenderness *Routine Rectal Exam Rectal:: deferred *Routine Genitalia Exam Genitalia:: deferred *Routine Extremities Exam Extremities: Absent cyanosis, clubbing or edema *Routine Skin Exam Skin: Present intact; Absent erythema *Routine Neurological Exam Neurological: Present alert and oriented X3 Meds Home Medications and Allergies Home Medications ?Medication ?Instructions ?Recorded ?Confirmed ?Type dapagliflozin propanediol 10 mg 10 mg PO DAILY 11/15/24 11/15/24 History tablet (Farxiga) fluticasone propionate 50 1 spray intranasal DAILY 11/15/24 11/15/24 History mcg/actuation nasal spray,suspension meclizine 25 mg tablet 25 mg PO QIDP PRN Dizziness #30 11/15/24 Rx tabs metformin 500 mg tablet,extended 1,000 mg PO BID 11/15/24 11/15/24 History release 24 hr pioglitazone 30 mg tablet 30 mg PO DAILY 11/15/24 11/15/24 History prednisone 20 mg tablet 40 mg PO DAILY 11/15/24 11/15/24 History New Prescriptions to Start Prescriptions: meclizine Marvin,Harvinder Allergies Allergy/AdvReac Type Severity Reaction Status Date / Time Beef Containing Products Allergy Hives Verified 11/15/24 01:48 Milk Containing Products Allergy Hives Verified 11/15/24 01:48 (Dairy) Pork/Porcine Containing Allergy Hives Verified 11/15/24 01:48 Products PENICILLIN Allergy Intermediate I-HIVES Uncoded 10/17/17 14:22 Hospital Course Hospital Course Hospital Course: The patient's dizziness resolved and he was able to get up and move about his room. He was stable to be discharged on meclizine and will f/u in the office of [facility]. Results Data Completed and Pending Labs on day of discharge: Labs from last 24 hours 11/15/24 11/15/24 11/14/24 03:20 00:21 20:15 WBC 14.3 H RBC 4.98 Hgb 15.0 Hct 45.2 MCV 90.8 MCH 30.1 MCHC 33.2 RDW 12.0 Plt Count 292 MPV 11.3 H Neut % (Auto) 85.4 H Lymph % (Auto) 8.5 L [place] % (Auto) 4.3 Eos % (Auto) 0.7 Baso % (Auto) 0.5 Neut # (Auto) 12.2 H Lymph # (Auto) 1.2 [place] # (Auto) 0.6 Eos # (Auto) 0.1 Baso # (Auto) 0.1 Sodium 135 L Potassium 4.0 Chloride 104 Carbon Dioxide 25 Anion Gap 10.0 BUN 20 Creatinine 0.80 Estimated Creat Clear 115 Estimated GFR 99 Est GFR ( Amer) 119 Glucose 141 H Calcium 9.2 Magnesium 1.9 Total Bilirubin 1.1 AST 29 ALT 23 Alkaline Phosphatase 81 Troponin I < 0.01 < 0.01 < 0.01 Total Protein 6.8 Albumin 4.5 Globulin 2.3 Albumin/Globulin Ratio 2.0 H TSH 0.87 Thyroxine (T4) 14.8 H HCV Ab GIGI w/Rflx PCR Qn Negative HIV Ag/Ab Combo Qual Negative DS: Diagnosis Discharge Diagnosis (1) Vertigo: Status: Acute Code(s): R42 - Dizziness and giddiness (2) Alpha-gal syndrome: Status: Acute Code(s): Z91.014 - Allergy to mammalian meats Discharge Plan Disposition Patient Disposition: Home, Self-Care Condition: Good Follow up Plan Follow up with: Harvinder Munoz MD [Primary Care Provider] - 01/23/25 11:30 am Prescriptions/Medication Reconciliation: Continued pioglitazone 30 mg tablet 30 mg PO DAILY Patient Comments: TAKE 1 TABLET BY MOUTH ONCE DAILY metformin 500 mg tablet extended release 24 hr 1,000 mg PO BID Patient Comments: TAKE 2 TABLETS BY MOUTH TWICE DAILY dapagliflozin propanediol [Farxiga] 10 mg tablet 10 mg PO DAILY Patient Comments: TAKE 1 TABLET BY MOUTH ONCE DAILY prednisone 20 mg Tablet 40 mg PO DAILY fluticasone propionate 50 mcg/actuation [place],Suspension 1 spray INTRANASAL DAILY Rx Instructions: administer into each nostril meclizine 25 mg Tablet 25 mg PO QIDP PRN (Reason: Dizziness) Qty: 30 0RF Problem Reconciliation Problems Reviewed?: Yes Patient Discharge Instructions ACTIVITY: Limited activity DIET: regular diet Patient Instructions: DI for Vertigo Print Language: Barbadian Providers Primary Care Provider: Harvinder Munoz Admit Provider: Harvinder Munoz Attending Provider: Harvinder Munoz
--- NOTE | 2024-11-18 11:24 | SW/DCPLANNER ---
Spoke with patient on the phone. Patient stated that he is doing very well. Patient stated that he is doing very well and went back to work today. Patient stated that he has no concerns or questions at this time. Xiomy Villanueva
== END 2024-11-15 14:58 | disposition home or self-care (01) ==
LOC: ER 11-15 00:27 → 2ND 11-15 00:30
PROVIDERS: Admitting Provider Family Medicine; Emergency Provider Emergency Medicine; PCP Family Medicine; Visit Provider Family Medicine
DX: R42 Dizziness and giddiness (principal); H61.23 Impacted cerumen, bilateral; E11.9 Type 2 diabetes mellitus without complications; Z79.84 Long term (current) use of oral hypoglycemic drugs; Z79.899 Other long term (current) drug therapy
CPT/HCPCS: 36415; 70450; 70496; 70498; 80053; 83735; 84436; 84443; 84484; 85025; 86803; 87389; 93005; 99285; G0378; Q9967

== ENCOUNTER 2024-11-26 09:39 | Outpatient (RCR) | payer BC, SELFPAY ==
--- NOTE | 2024-11-26 11:53 | HMH.PTOPEV ---
PT Outpatient Evaluation Rehab PT Outpatient Evaluation Start: 11/26/24 09:55 Freq: Status: Active Protocol: Document 11/26/24 11:13 EDDIE (Rec: 11/26/24 11:53 EDDIE [id number]) E-signed By Fantasma Steve, PT Outpatient Therapy Subjective History Subjective History This is the initial PT eval for Levi Barron, 59 yowm who presents with c/o neck pain chronically for many years (~ 30) with this episode beginning ~ 2-3 wks ago. He reports pain is worse with certain activities, specifically desk work, and feels tight most of the time . He reports no c/o numbness or tingling at this time. He had CT scan performed which shows multilevel cervical DDD. Chief Complaint Pain,Stiff Symptom Type Ache Symptoms Relieved By Rest/Positioning Symptoms Aggravated By Physical Activity Prior Functional Limitations None Current Functional Limitations Desk Work/Reading,Recreation Activity Symptom Description Intermittent,Activity Dependent Level of pain today (0-10) 6 Pain scale - at its best (0-10) 0 Pain scale - at its worst (0-10) 8 Cervical Eval Palpation Cervical Muscles R Upper Trapezius,L Upper Trapezius Cervical/Thoracic Palpation Findings Muscle Guarding Posture Head/C-Spine Posture Sitting Position Flexed Head/C-Spine Posture Standing Position Flexed Flexibility Deficits Upper Trapezius Muscle Length (R) Mild Tightness,(L) Mild Tightness Levaetor Scapulae Muscle Length (R) Mild Tightness,(L) Mild Tightness Passive Joint Mobility Cervical PIVM Dec: R C3/4 L C3/4 R C4/5 L C4/5 R C5/6 L C5/6 R C6/7 L C6/7 WNL: R OA L OA R AA L AA R C2/3 L C2/3 R C7/T1 L C7/T1 AROM Cervical Spine Extension Active Range of 0-55 Motion (degrees) Cervical Spine Flexion Active Range of 0-20 Motion (degrees) Cervical Spine Right Lateral Flexion 0-30 Active Range of Motion (degrees) Cervical Spine Left Lateral Flexion 0-30 Active Range of Motion (degrees) Cervical Spine Right Rotation Active 0-60 Range of Motion (degrees) Cervical Spine Left Rotation Active 0-55 Range of Motion (degrees) MMT Bilateral Deltoid (C5) 5 Normal Biceps Brachii Strength Grade 5 Normal Wrist Extension Strength Grade 4 Good Triceps Brachii Strength Grade 5 Normal Wrist Flexion Strength Grade 4 Good Extensor Pollicis Longus Strength Grade 5 Normal Finger Abduction Strength Grade 5 Normal Special Test C-Spine Foraminal Compression ([place]) Negative Left,Negative Right Test C-Spine Foraminal Distraction Test Positive C-Spine Compression Test Negative Left,Negative Right Neck Disability Index Neck Disability Index Section 1: Pain Intensity The pain is moderate at the moment Section 2: Personal Care (washing, I can look after myself dressing, etc.) normally without causing extra pain Section 3: Lifting I can lift heavy weights but it gives extra pain Section 4: Reading I can read as much as I want with moderate pain in my neck Section 5: Headaches I have slight headaches, which come infrequently Section 6: Concentration I can concentrate fully when I want to with slight difficulty Section 7: Work I cannot do my usual work Section 8: Driving I can drive my car without any neck pain Section 9: Sleeping I have no trouble sleeping Section 10: Recreation I am able to engage in a few of my usual recreation activities because NDI Score 13 Outpatient Therapy Assessment Impairments Problems/Impairmments Palpation Tenderness,Impaired Range of Motion,Impaired Strength,Impaired Endurance, Impaired Household Care, Impaired Recreational Activities,Impaired Desk/ Computer Activities,Impaired Self Care/Self Management Prognosis Rehab Potential Good Comment Skilled therapy is indicated to reduce pain in cervical spine and upper thoracic regions, improve flexibility, improve scapular stability, and reduce frequency of headaches in order to return pt to PLOF. Clinical Impression Consistent with Diagnosis Yes Short Term Goals Number of Weeks 2 Increase Range of Motion Yes: C-spine by 5 deg all dir Improve Ability For Household Care Yes: without pain Improve Neck Disability Index Score Yes: 11 or less Decrease Subjective C/O Pain Yes: 5/10 at worst in neck Patient to be Ind w/ HEP Yes Fpc Goals Number of Weeks 4 Increase Range of Motion Yes: C-spine by 10 deg all dir Return to Recreational Activities Yes: without pain Improve Tolerance to Work Activities Yes: without pain Improve Neck Disability Index Score Yes: 9 or less Decrease Subjective C/O Pain Yes: 3/10 at worst in neck Patient to be Ind w/ Advanced HEP Yes Outpatient Therapy Plan of Care Treatment Plan May Include Therapeutic Exercise Including Home Yes Exercise Program Manual Therapy Techniques Yes Neuromuscular Re-education Yes Therapeutic Activities to Return to Yes Previous Functional/Work Level ADL/Self Care Education Yes Mechanical Traction Yes Thermal Modalities Yes Electrical Stimulation Yes Ultrasound/Phonophoresis Yes Massage Yes Eval/Re-Eval Yes Frequency Times per week 3 Duration Number of Weeks 4 Addendums This patient is a candidate for social No or vocational rehab? Patient/Guardian verbally acknowledges Yes understanding of treatment program and consents to further treatment? Patient/Guardian verbally acknowledges Yes understanding of diagnosis, prognosis and goals for treatment? Eval Complexity PT Charges 73466 - High Complexity Shoulder/Elbow Eval Shoulder Objective Measurements Elbow Objective Measurements PHYSICIAN CERTIFICATION: I certify the specified therapy services for Levi Barron are required, authorized, and reviewed every 30 days.
== END 2024-11-26 23:59 | disposition home or self-care (01) ==
LOC: PT 09:39
PROVIDERS: PCP Family Medicine; Visit Provider Family Medicine
DX: R42 Dizziness and giddiness (principal); M50.90 Cervical disc disorder, unspecified, unspecified cervical region; M53.82 Other specified dorsopathies, cervical region
CPT/HCPCS: 97014; 97110; 97140; 97163; G0283

== ENCOUNTER 2024-12-20 12:23 | Emergency (ER) | payer BC, SELFPAY ==
[2024-12-20] VITALS (10 sets, daily range): BP systolic 102–190; BP diastolic 51–106; PULSE 53–60; RESP 11–18; TEMP 36.8; O2SAT 96–98; BMI 24.8
--- NOTE | 2024-12-20 13:02 | ECG_ITS ---
APPROVED REPORT Exam: Resting ECG HR:57 bpm ECG Measurements Heart Rate 57 AXES KS 135 P -23 QRSd 142 QRS 98 QT 458 T 36 QTc 452 Conclusion SINUS BRADYCARDIA RIGHT BUNDLE BRANCH BLOCK [120+ ms QRS DURATION, UPRIGHT V1, 40+ ms S IN I/aVL/V4/V5/V6] ABNORMAL ECG UNCONFIRMED REPORT Electronically signed by : MARIE SIERRA, 12/21/2024 06:26:19
--- NOTE | 2024-12-20 13:05 | HMH.EDGENADL ---
Discharge Plan Disposition Patient Disposition: Home, Self-Care Prescriptions Prescriptions: No Action pioglitazone 30 mg tablet 30 mg PO DAILY Patient Comments: TAKE 1 TABLET BY MOUTH ONCE DAILY metformin 500 mg tablet extended release 24 hr 1,000 mg PO BID Patient Comments: TAKE 2 TABLETS BY MOUTH TWICE DAILY dapagliflozin propanediol [Farxiga] 10 mg tablet 10 mg PO DAILY Patient Comments: TAKE 1 TABLET BY MOUTH ONCE DAILY fluticasone propionate 50 mcg/actuation [place],Suspension 1 spray INTRANASAL DAILY Rx Instructions: administer into each nostril celecoxib 200 mg capsule 200 mg PO DAILY promethazine-DM 6.25-15 mg/5 mL syrup 5 ml PO Q6HP PRN (Reason: Nausea And Vomiting) Patient Comments: TAKE 5 ML BY MOUTH EVERY 6 HOURS NEEDED tizanidine 4 mg tablet 4 mg PO TID sumatriptan succinate 100 mg tablet 100 mg PO DIRECTED Patient Comments: TAKE ONE TABLET BY MOUTH AT ONSET OF MIGRAINE. IF SYMPTOMS PERSIST, A SECOND DOSE MAY BE TAKEN IN 2 HOURS. DO NOT EXCEED 2 DOSES IN A 24 HOUR PERIOD, UNLESS OTHERWISE INSTRUCTED BY YOUR PHYSICIAN diazepam 2 mg tablet 2 mg PO HSP PRN (Reason: Sleep) Patient Comments: TAKE 1 TABLET BY MOUTH NEEDED AT BEDTIME cefdinir 300 mg capsule 300 mg PO BID Patient Comments: TAKE 1 CAPSULE BY MOUTH TWICE DAILY Referrals Follow up/Referrals: Harvinder Munoz MD [Primary Care Provider] - See instructions Activity Restrictions/Add. Instructions Additional Instructions/Restrictions: No emergent medical condition identified today. You are focally tender over your greater occipital nerve and therefore a occipital nerve block was performed is possible this is occipital neuralgia. Please follow-up with neurology as discussed. Clinical Impressions Clinical Impression: Chronic headache, Occipital neuralgia of right side Print Language Print Language: [place]errat[place] Discharge ED Provider: South Huang General Adult HPI <South Huang MD - Last Filed: 12/20/24 15:24> General Chief complaint: Headache Stated complaint: dizziness head ache Time Seen by Provider: 12/20/24 12:39 Mode of Arrival: Ambulatory Source of Information: Patient Limitations: No Limitations Description of Symptoms (Recalled from ER Triage Doc. by RN): Pt presents with c/o right sided headache x 1 hour. Pt states it feels like his head is going to explode. Pt states he has been getting frequent headaches since . PCP has prescribed muscle relaxers and anti-inflammatory, meclizine. Pt is also on an antibiotic for fluid on his ear currently History of Present Illness HPI narrative: Please note that above description of symptoms, in this electronic medical record under categorization of recalled from ER triage doctor by RN are reflective of an initial nursing assessment, however, is not reflective of my full history and physical exam that was personally taken and clarified. Consequentially, this preceding description of symptoms, which may include the patient's categorized chief complaint in the EMR, do not reflect my personal clinical impression, and the ultimate description of history of present illness and patient stated complaints should be deferred to this section of the note. Unless stated otherwise or congruent with this section of the note, additional signs, symptoms, or incongruence should be interpreted as inaccurate with my clinical impression. Related Data Home Medications ?Medication ?Instructions ?Recorded ?Confirmed dapagliflozin propanediol 10 mg 10 mg PO DAILY 11/15/24 12/20/24 tablet (Farxiga) fluticasone propionate 50 1 spray intranasal DAILY 11/15/24 12/20/24 mcg/actuation nasal spray,suspension metformin 500 mg tablet,extended 1,000 mg PO BID 11/15/24 12/20/24 release 24 hr pioglitazone 30 mg tablet 30 mg PO DAILY 11/15/24 12/20/24 cefdinir 300 mg capsule 300 mg PO BID 12/20/24 12/20/24 celecoxib 200 mg capsule 200 mg PO DAILY 12/20/24 12/20/24 diazepam 2 mg tablet 2 mg PO HSP PRN Sleep 12/20/24 12/20/24 promethazine-DM 6.25 mg-15 mg/5 mL 5 ml PO Q6HP PRN Nausea And 12/20/24 12/20/24 oral syrup Vomiting sumatriptan succinate 100 mg tablet 100 mg PO DIRECTED 12/20/24 12/20/24 tizanidine 4 mg tablet 4 mg PO TID 12/20/24 12/20/24 Allergies Allergy/AdvReac Type Severity Reaction Status Date / Time Beef Containing Products Allergy Hives Verified 12/20/24 12:49 Milk Containing Products Allergy Hives Verified 12/20/24 12:49 (Dairy) Pork/Porcine Containing Allergy Hives Verified 12/20/24 12:49 Products PENICILLIN Allergy Intermediate I-HIVES Uncoded 10/17/17 14:22 PFSH <South Huang MD - Last Filed: 12/20/24 15:24> [facility] Disclaimer: The information contained in this section may have been updated after the patient was seen, as this information can be updated by other users. Medical History (Updated 12/20/24 @ 17:24 by Gucci Garvin MD) Tick bite Wedge compression fracture of L1 vertebra Concussion Alpha-gal syndrome Social History Smoking Status: Never smoker alcohol intake: never current occupational status: employed Travel in the last 8 weeks: None Have you lived/traveled outside [place] in past 30 days?: No Contact w/someone who lives/traveled outside US past 30 days?: No Exposure to someone with infectious disease in past 14 days?: No Do you have a fever (greater than 100.4 F or 38 C)?: No Have you tested positive for COVID-19: No Exposed to someone with COVID-19 in past 14 days?: No Do you have a sore throat?: No Do you have a cough?: No Do you have any weakness?: No Do you have any diarrhea?: No Are you experiencing any unusual bleeding?: No Do you have any muscle aches/pain?: No Do you have any abdominal pain?: No Are you experiencing loss of taste or smell?: No Other Medical History Have you received the Flu Vaccine for this season: No Have you received the Pneumonia Vaccine: No <South Huang MD - Last Filed: 12/20/24 15:24> ROS Obtained: Yes All systems reviewed & no additional complaints except as documented Physical Exam <South Huang MD - Last Filed: 12/20/24 15:24> General General appearance: alert Head Head exam: atraumatic and normocephalic Eye Eye exam: Present normal appearance, PERRL and EOMI Neck Neck exam: Present normal inspection, full ROM and trachea midline Respiratory Respiratory exam: Absent respiratory distress, wheezes, stridor, accessory muscle use or prolonged expiratory phase Cardiovascular Cardiovascular exam: Present other (Pulses equal symmetric in upper and lower extremities) Abdominal Exam Abdominal exam: Present soft; Absent distention, tenderness or pulsatile mass Extremities Exam Extremities exam: Absent edema Neurological Exam Neurological exam: Present alert, oriented X3 and CN II-XII intact; Absent motor sensory deficit Skin Skin exam: Present warm and dry; Absent diaphoresis or erythema Medical Decision Making <South Huang MD - Last Filed: 12/20/24 15:24> Medical Records Medical records reviewed: Yes I reviewed the patient's medical records. Screening: Per USPSTF and CDC recommendations, given the prevalence of disease in our region, it is our hospital?s policy to screen for HIV and viral Hepatitis for all patients aged 18 and over and those with ongoing risk factors. Hasmukh Inquiry Pt receiving controlled substance: No Hasmukh was queried for this patient: No Vital Signs: 12/20/24 12:34 12/20/24 12:40 12/20/24 13:00 Temperature 98.3 F Temperature Source Temporal Artery Scan Pulse Rate 57 L 56 L Pulse Rate [Right] 59 L Respiratory Rate 18 Blood Pressure 134/78 124/71 Blood Pressure [Right Arm] 143/79 H Blood Pressure Mean [Right Arm] 100 Blood Pressure Source [Right Arm] Automatic Cuff Blood Pressure Position [Right Arm] Sitting 02 Sat by Pulse Oximetry 98 97 96 Oxygen Delivery Method Room Air Room Air Room Air 12/20/24 13:30 12/20/24 14:01 12/20/24 14:30 Temperature Temperature Source Pulse Rate 57 L 54 L 53 L Pulse Rate [Right] Respiratory Rate 13 12 11 L Blood Pressure 123/73 107/62 L 102/51 L Blood Pressure [Right Arm] Blood Pressure Mean [Right Arm] Blood Pressure Source [Right Arm] Blood Pressure Position [Right Arm] 02 Sat by Pulse Oximetry 98 96 98 Oxygen Delivery Method Room Air Room Air Room Air 12/20/24 15:00 12/20/24 16:31 12/20/24 17:03 Temperature Temperature Source Pulse Rate 60 56 L 57 L Pulse Rate [Right] Respiratory Rate 12 12 14 Blood Pressure 121/59 L 190/106 H 190/92 H Blood Pressure [Right Arm] Blood Pressure Mean [Right Arm] Blood Pressure Source [Right Arm] Blood Pressure Position [Right Arm] 02 Sat by Pulse Oximetry 98 97 96 Oxygen Delivery Method Room Air Room Air Room Air Lab Data Lab Results 12/20/24 13:10: WBC 9.4, RBC 4.95, Hgb 14.7, Hct 44.8, MCV 90.5, MCH 29.7, MCHC 32.8, RDW 12.1, Plt Count 299, MPV 11.1 H, Neut % (Auto) 81.5 H, Lymph % (Auto) 8.9 L, [place] % (Auto) 7.5, Eos % (Auto) 1.0, Baso % (Auto) 0.6, Neut # (Auto) 7.6, Lymph # (Auto) 0.8, [place] # (Auto) 0.7, Eos # (Auto) 0.1, Baso # (Auto) 0.1, Total Counted 100, Neutrophils % (Manual) 79 H, Band Neutrophils % 1, Lymphocytes % (Manual) 12, Monocytes % (Manual) 7, Eosinophils % (Manual) 1, Platelet Estimate Normal, RBC Morphology Normal, Sodium 139, Potassium 4.2, Chloride 104, Carbon Dioxide 28, Anion Gap 11.2, BUN 20, Creatinine 0.70, Estimated Creat Clear 125, Estimated GFR 115, Est GFR ( Amer) 139, Glucose 125 H, Calcium 9.0, Total Bilirubin 1.3, AST 27, ALT 25, Alkaline Phosphatase 77, Total Protein 6.7, Albumin 4.3, Globulin 2.4, Albumin/Globulin Ratio 1.8 12/20/24 13:10 12/20/24 13:10 Orders (Tests/Meds): ED MEDICATIONS Discontinued Medications Generic Name Dose Route Start Last Admin Trade Name Grant PRN Reason Stop Dose Admin Acetaminophen 1,000 mg 12/20/24 12:54 12/20/24 13:16 Acetaminophen 1,000mg/100ml Vial IV 12/20/24 12:55 1,000 mg ONCE ONE Administration Dexamethasone Sodium Phosphate 10 mg 12/20/24 12:54 12/20/24 13:16 Dexamethasone 4mg/Ml 1ml Vial IV 12/20/24 12:55 10 mg ONCE ONE Administration Diphenhydramine HCl 50 mg 12/20/24 12:54 12/20/24 13:17 Diphenhydramine 50mg/Ml Vial IV 12/20/24 12:55 50 mg ONCE ONE Administration Droperidol 2.5 mg 12/20/24 12:54 12/20/24 13:17 Droperidol 5mg/2ml Vial IV 12/20/24 12:55 2.5 mg ONCE ONE Administration Gadoteridol 16 ml 12/20/24 16:05 12/20/24 16:06 Gadoteridol Inj 20ml Syringe IV 12/20/24 16:06 16 ml ONCE ONE Administration Magnesium Sulfate 2 gm in 50 mls @ 50 mls/hr 12/20/24 12:54 12/20/24 13:17 Magnesium Sulfate 2gm/50ml Premix IV 12/20/24 13:53 50 mls/hr ONCE ONE Administration Lactated Ringer's 1,000 mls @ 999 mls/hr 12/20/24 12:57 12/20/24 13:18 Lactated Ringer's 1000 Ml Bag IV 12/20/24 13:57 999 mls/hr .Q1H1M ONE Administration Ketorolac Tromethamine 15 mg 12/20/24 12:54 12/20/24 13:16 Ketorolac 30mg/Ml Vial IV 12/20/24 12:55 15 mg ONCE ONE Administration Sodium Chloride 10 ml 12/20/24 16:05 12/20/24 16:06 Sodium Chloride 0.9% 10ml Syr (Rad Only) IV 12/20/24 16:06 10 ml ONCE ONE Administration ORDERS Category Date Time Status CMP [Comprehensive Metabolic Panel] Stat Lab 12/20/24 13:10 Completed Complete Blood Count Man Dif Stat Lab 12/20/24 13:10 Completed Medical Decision Narrative: 59-year-old male presenting with migraine. Patient states he did have migraines until just a few weeks prior to this. Was seen in the emergency department at that time, CTs were obtained, reportedly negative. Has been following with his family doctor regarding this visit and has as needed medications at home, he cannot remember the names. States that this current headache has been going on for about 3 days, getting worse in December every day. States that headache progresses throughout the day, lays down and goes to sleep at night and while he sleeping has near complete relief of headaches. Wakes up in the morning and shortly after waking up, starts having a headache again which gets worse throughout the day. Feels like it radiates down his neck. Came in for further evaluation as it is getting worse every day again. No vision changes, neurologic deficits, or any other concerns. States that when he stands his head swims, and feels like his brain bounces off the inside of his skull. Better when he sits still. No vision changes other than feeling like the room is moving, which completely resolves when sitting still. History was obtained via conversation with patient and family. On arrival, patient hemodynamically stable, alert, [oriented x4, ][appropriate, ]GCS [15], moving all extremities spontaneously, pupils equal and reactive to light. Full physical exam performed and significant for 59-year-old male sitting quietly in room with the lights off and eyes closed. Opens eyes during conversation. Neurologically intact. No nystagmus.. Differential includes headache, migraine headache, cluster headache, less likely intracranial mass, intracranial bleed, among others. Patient placed on continuous cardiac monitoring and continuous pulse ox with initial blood pressure 143/79, heart rate 59, saturation 98% on room air. [Independent interpretation of EKG shows] sinus bradycardia 57 bpm with right bundle branch block morphology. AK interval 135, QRS interval 142, QTc 452. No acute ischemic change. Patient was given migraine cocktail for symptomatic management[ and correction of underlying abnormalities]. Labs and CT imaging of the head were considered, but not deemed necessary. Recent CT scans were completely negative on independent interpretation. Patient not having systemic signs or symptoms or any signs of meningismus, labs not deemed necessary. Reevaluation, patient feeling much better, conversation had with and she states that he has had multiple negative workups, negative CTs, etc., inquiring about MRI. It was explained that MRI probably would not happen given availability from the ED, but radiology was contacted and case was discussed and they do have room in the MRI queue. MRI with and without contrast was ordered. Prior to this, care handed off to oncoming physician. Acute Care Physician disclaimer Much of this encounter note is an electronic vision therapist spoken language to printed text. Electronic vision therapist of the spoken language may permit errors. Although I have reviewed the note, some errors may still exist. <Gucci Garvin MD - Last Filed: 12/20/24 17:26> Vital Signs: 12/20/24 12:34 12/20/24 12:40 12/20/24 13:00 Temperature 98.3 F Temperature Source Temporal Artery Scan Pulse Rate 57 L 56 L Pulse Rate [Right] 59 L Respiratory Rate 18 Blood Pressure 134/78 124/71 Blood Pressure [Right Arm] 143/79 H Blood Pressure Mean [Right Arm] 100 Blood Pressure Source [Right Arm] Automatic Cuff Blood Pressure Position [Right Arm] Sitting 02 Sat by Pulse Oximetry 98 97 96 Oxygen Delivery Method Room Air Room Air Room Air 12/20/24 13:30 12/20/24 14:01 12/20/24 14:30 Temperature Temperature Source Pulse Rate 57 L 54 L 53 L Pulse Rate [Right] Respiratory Rate 13 12 11 L Blood Pressure 123/73 107/62 L 102/51 L Blood Pressure [Right Arm] Blood Pressure Mean [Right Arm] Blood Pressure Source [Right Arm] Blood Pressure Position [Right Arm] 02 Sat by Pulse Oximetry 98 96 98 Oxygen Delivery Method Room Air Room Air Room Air 12/20/24 15:00 12/20/24 16:31 12/20/24 17:03 Temperature Temperature Source Pulse Rate 60 56 L 57 L Pulse Rate [Right] Respiratory Rate 12 12 14 Blood Pressure 121/59 L 190/106 H 190/92 H Blood Pressure [Right Arm] Blood Pressure Mean [Right Arm] Blood Pressure Source [Right Arm] Blood Pressure Position [Right Arm] 02 Sat by Pulse Oximetry 98 97 96 Oxygen Delivery Method Room Air Room Air Room Air Lab Data Lab results reviewed: Yes I reviewed the patient's lab results. Lab Results 12/20/24 13:10: WBC 9.4, RBC 4.95, Hgb 14.7, Hct 44.8, MCV 90.5, MCH 29.7, MCHC 32.8, RDW 12.1, Plt Count 299, MPV 11.1 H, Neut % (Auto) 81.5 H, Lymph % (Auto) 8.9 L, [place] % (Auto) 7.5, Eos % (Auto) 1.0, Baso % (Auto) 0.6, Neut # (Auto) 7.6, Lymph # (Auto) 0.8, [place] # (Auto) 0.7, Eos # (Auto) 0.1, Baso # (Auto) 0.1, Total Counted 100, Neutrophils % (Manual) 79 H, Band Neutrophils % 1, Lymphocytes % (Manual) 12, Monocytes % (Manual) 7, Eosinophils % (Manual) 1, Platelet Estimate Normal, RBC Morphology Normal, Sodium 139, Potassium 4.2, Chloride 104, Carbon Dioxide 28, Anion Gap 11.2, BUN 20, Creatinine 0.70, Estimated Creat Clear 125, Estimated GFR 115, Est GFR ( Amer) 139, Glucose 125 H, Calcium 9.0, Total Bilirubin 1.3, AST 27, ALT 25, Alkaline Phosphatase 77, Total Protein 6.7, Albumin 4.3, Globulin 2.4, Albumin/Globulin Ratio 1.8 Orders (Tests/Meds): ED MEDICATIONS Discontinued Medications Generic Name Dose Route Start Last Admin Trade Name Freq PRN Reason Stop Dose Admin Acetaminophen 1,000 mg 12/20/24 12:54 12/20/24 13:16 Acetaminophen 1,000mg/100ml Vial IV 12/20/24 12:55 1,000 mg ONCE ONE Administration Dexamethasone Sodium Phosphate 10 mg 12/20/24 12:54 12/20/24 13:16 Dexamethasone 4mg/Ml 1ml Vial IV 12/20/24 12:55 10 mg ONCE ONE Administration Diphenhydramine HCl 50 mg 12/20/24 12:54 12/20/24 13:17 Diphenhydramine 50mg/Ml Vial IV 12/20/24 12:55 50 mg ONCE ONE Administration Droperidol 2.5 mg 12/20/24 12:54 12/20/24 13:17 Droperidol 5mg/2ml Vial IV 12/20/24 12:55 2.5 mg ONCE ONE Administration Gadoteridol 16 ml 12/20/24 16:05 12/20/24 16:06 Gadoteridol Inj 20ml Syringe IV 12/20/24 16:06 16 ml ONCE ONE Administration Magnesium Sulfate 2 gm in 50 mls @ 50 mls/hr 12/20/24 12:54 12/20/24 13:17 Magnesium Sulfate 2gm/50ml Premix IV 12/20/24 13:53 50 mls/hr ONCE ONE Administration Lactated Ringer's 1,000 mls @ 999 mls/hr 12/20/24 12:57 12/20/24 13:18 Lactated Ringer's 1000 Ml Bag IV 12/20/24 13:57 999 mls/hr .Q1H1M ONE Administration Ketorolac Tromethamine 15 mg 12/20/24 12:54 12/20/24 13:16 Ketorolac 30mg/Ml Vial IV 12/20/24 12:55 15 mg ONCE ONE Administration Sodium Chloride 10 ml 12/20/24 16:05 12/20/24 16:06 Sodium Chloride 0.9% 10ml Syr (Rad Only) IV 12/20/24 16:06 10 ml ONCE ONE Administration ORDERS Category Date Time Status CMP [Comprehensive Metabolic Panel] Stat Lab 12/20/24 13:10 Completed Complete Blood Count Man Dif Stat Lab 12/20/24 13:10 Completed Medical Decision Narrative: 59-year-old male presenting with migraine. Patient states he did have migraines until just a few weeks prior to this. Was seen in the emergency department at that time, CTs were obtained, reportedly negative. Has been following with his family doctor regarding this visit and has as needed medications at home, he cannot remember the names. States that this current headache has been going on for about 3 days, getting worse in December every day. States that headache progresses throughout the day, lays down and goes to sleep at night and while he sleeping has near complete relief of headaches. Wakes up in the morning and shortly after waking up, starts having a headache again which gets worse throughout the day. Feels like it radiates down his neck. Came in for further evaluation as it is getting worse every day again. No vision changes, neurologic deficits, or any other concerns. States that when he stands his head swims, and feels like his brain bounces off the inside of his skull. Better when he sits still. No vision changes other than feeling like the room is moving, which completely resolves when sitting still. History was obtained via conversation with patient and family. On arrival, patient hemodynamically stable, alert, [oriented x4, ][appropriate, ]GCS [15], moving all extremities spontaneously, pupils equal and reactive to light. Full physical exam performed and significant for 59-year-old male sitting quietly in room with the lights off and eyes closed. Opens eyes during conversation. Neurologically intact. No nystagmus.. Differential includes headache, migraine headache, cluster headache, less likely intracranial mass, intracranial bleed, among others. Patient placed on continuous cardiac monitoring and continuous pulse ox with initial blood pressure 143/79, heart rate 59, saturation 98% on room air. [Independent interpretation of EKG shows] sinus bradycardia 57 bpm with right bundle branch block morphology. [place] interval 135, QRS interval 142, QTc 452. No acute ischemic change. Patient was given migraine cocktail for symptomatic management[ and correction of underlying abnormalities]. Labs and CT imaging of the head were considered, but not deemed necessary. Recent CT scans were completely negative on independent interpretation. Patient not having systemic signs or symptoms or any signs of meningismus, labs not deemed necessary. Reevaluation, patient feeling much better, conversation had with and she states that he has had multiple negative workups, negative CTs, etc., inquiring about MRI. It was explained that MRI probably would not happen given availability from the ED, but radiology was contacted and case was discussed and they do have room in the MRI queue. MRI with and without contrast was ordered. Prior to this, care handed off to oncoming physician. Acute Care Physician disclaimer Much of this encounter note is an electronic vision therapist spoken language to printed text. Electronic vision therapist of the spoken language may permit errors. Although I have reviewed the note, some errors may still exist. Reassessment this is Dr. Garvin 5:24 PM serial neurologic exams are normal MRI performed and radiology read is negative for any acute abnormalities. I discussed further with the patient and his symptoms been going on 2 months. I have advised that he follow-up with a neurologist he did have a tick bite 1 year ago restarted having some abnormal symptoms. 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 He does not have any meningismus he is afebrile. On reassessment he does have some focal tenderness over his greater occipital nerve. Therefore an occipital nerve block was performed. Patient felt significantly better after his migraine cocktail and does have some localized improvement of his symptoms it is possible this is occipital neuralgia but he needs to follow-up further with neurology which he is aware of. Patient was discharged in stable condition. Procedures <Gucci Garvin MD - Last Filed: 12/20/24 17:26> Miscellaneous Procedure Procedure Performed: Occipital nerve block Indications chronic headache with focal tenderness over his greater occipital nerve 1% lidocaine 0.5% bupivacaine and Solu-Medrol 40 mg per vial/mL were combined with a total concentration of 5 cc with 2 cc of lidocaine 2 cc bupivacaine and 1 cc of Solu-Medrol locally infiltrated into the region that is focally tender which is over the greater occipital nerve patient had improvement in symptoms with no complications. Critical Care <South Huang MD - Last Filed: 12/20/24 15:24> Critical Care Time Critical Care Time: No
[2024-12-20] MEDS: DEXAMETHASONE 4MG/ML 1ML VIAL 10 MG IV (13:16)
[2024-12-20] MEDS: ACETAMINOPHEN 1,000MG/100ML VIAL 1000 MG IV (13:16)
[2024-12-20] MEDS: KETOROLAC 30MG/ML VIAL 15 MG IV (13:16)
[2024-12-20] MEDS: droPERidol 5MG/2ML VIAL 2.5 MG IV (13:17)
[2024-12-20] MEDS: diphenhydrAMINE 50MG/ML VIAL 50 MG IV (13:17)
[2024-12-20] MEDS: MAGNESIUM SULFATE IN WATER 2 GM/50 ML PIGGYBACK IV (13:17)
[2024-12-20] MEDS: LACTATED RINGERS 1000ML 1,000 ML 999 ML IV (13:18)
--- NOTE | 2024-12-20 13:57 | PC.NURSE ---
Rounded on pt, he is resting in bed comfortably. at bedside. No needs at this time.
--- NOTE | 2024-12-20 15:06 | PC.NURSE ---
MRI OK'D PER JUSTINA IN CARE MANAGEMENT
--- NOTE | 2024-12-20 15:11 | MR_ITS ---
FINAL REPORT TECHNIQUE: Multiplanar and multisequence imaging of the brain was obtained before and after contrast administration. CLINICAL HISTORY: persistent dizziness, HERNANDEZ in the posterior aspect of head , feels like right eye is being pulled ,16 ml prohance FINDINGS: Brain parenchymal: There is no mass effect or midline shift. There are no areas of abnormal signal intensity.The cerebellum and brainstem are without acute abnormality. Ventricles: The ventricles are symmetric in size and configuration without hydrocephalus. Extra-axial spaces: No extra-axial fluid collections. Diffusion imaging: No areas of restricted diffusion to suggest acute infarct. Flow voids: Flow voids within the major intracranial vessels are preserved. Soft tissues: Soft tissues are without acute abnormality. Post contrast imaging: No abnormal enhancement. IMPRESSION: No acute intracranial abnormality and no pathologic contrast enhancement. Reviewed, Interpreted and Dictated by Leonie Hunt MD Transcribed by Sue Tate Authenticated and [facility]
--- NOTE | 2024-12-20 15:13 | PC.NURSE ---
PT GOING TO MRI AT THIS TIME, CAROLIN MAI IS TAKING PT VIA WHEELCHAIR
[2024-12-20 15:27] LABS: Basophils # 0.1 K/mm3 (0-0.2); Basophils % 0.6 % (0.1-2.0); Eosinophils # 0.1 K/mm3 (0.0-0.4); Hematocrit 44.8 % (42.0-52.0); Hemoglobin 14.7 g/dL (14.1-18.0); Lymphocytes # 0.8 K/mm3 (0.7-4.5); Lymphocytes % 8.9 % (10-50); MANUAL DIFFERENTIAL MANUAL DIFFERENTIAL (MANUAL DIFF); Mean Corpuscular HGB Conc 32.8 g/dL (31.8-35.4); Mean Corpuscular Hemoglobin 29.7 pg (27.0-31.2); Mean Corpuscular Volume 90.5 fl (80-94); Mean Platelet Volume 11.1 fl (7.4-10.4); Monocytes # 0.7 K/mm3 (0.1-1.0); Monocytes % 7.5 % (1.7-9.3); Neutrophils # 7.6 K/mm3 (1.8-7.8); Neutrophils % 81.5 % (37.0-80.0); Platelet Count 299 K/mm3 (142-424); Red Blood Count 4.95 M/mm3 (4.60-6.20); Red Cell Distribution Width 12.1 % (11.5-17.5); White Blood Count 9.4 K/mm3 (4.8-10.8)
[2024-12-20 15:29] LABS: Albumin Level 4.3 g/dl (3.5-5.0); Chloride 104 mmol/L (98-107); Potassium 4.2 mmoL/L (3.5-5.1); Sodium 139 mmol/L (136-145)
[2024-12-20 15:32] LABS: Alanine Aminotransferase 25 U/L (12-78); Albumin/Globulin Ratio 1.8 (1.1-1.8); Alkaline Phosphatase 77 U/L (38-126); Anion Gap 11.2 mEq/L (5-15); Aspartate Amino Transferase 27 U/L (17-59); Bilirubin,Total 1.3 mg/dl (0.2-1.3); Blood Urea Nitrogen 20 mg/dl (9-20); Carbon Dioxide 28 mmol/L (22.0-30.0); Creatinine Clearance Estimated 125 mL/min (50-200); Estimated Glomerular Filt Rate 115 ml/min (>60); GFR (African American) 139 ML/MIN (>60); Globulin 2.4 g/dL (1.3-3.2); Glucose 125 mg/dl (74-100); Total Protein,Serum 6.7 g/dl (6.3-8.2)
[2024-12-20] MEDS: GADOTERIDOL INJ 20ML SYRINGE 16 ML IV (16:06)
[2024-12-20] MEDS: SODIUM CHLORIDE 0.9% 10ML SYR (RAD ONLY) 10 ML IV (16:06)
[2024-12-20 16:16] LABS: Eosinophils % 1 % (0-3); Lymphocytes % 12 % (10-50); Monocytes % 7 % (2-9); Neutrophils % 79 % (42-76); Platelet Estimate Normal; RBC Morphology Normal; Total Cells Counted 100
[2024-12-20 16:17] LABS: Band Neutrophils % 1 (0-8)
[2024-12-20] MEDS: LIDOCAINE 1% 10ML MDV 5 ML IJ (16:30)
[2024-12-20] MEDS: BUPIVACAINE 0.5% 30ML VIAL 10 MG IJ (16:30)
[2024-12-20] MEDS: METHYLPREDNISOLONE SOD SUCC 40MG VIAL 40 MG IM (16:30)
== END 2024-12-20 17:33 | disposition home or self-care (01) ==
PROVIDERS: Emergency Provider Emergency Medicine; PCP Family Medicine
DX: M54.81 Occipital neuralgia (principal); R51.9 Headache, unspecified; R42 Dizziness and giddiness
CPT/HCPCS: 70553; 80053; 85007; 85014; 85018; 85048; 85049; 93005; 96361; 96365; 96374; 96375; 99285; A9576; C9144; J0131; J1100; J1200; J1790; J1885; J2919; J3475; J7120

== ENCOUNTER 2024-12-26 09:00 | Outpatient (RCR) | payer BC, SELFPAY | END 2024-12-26 23:59 | disposition home or self-care (01) | LOC: PT 09:00 | PROVIDERS: PCP Family Medicine; Visit Provider Family Medicine | DX: R42 Dizziness and giddiness (principal); M53.82 Other specified dorsopathies, cervical region; M50.90 Cervical disc disorder, unspecified, unspecified cervical region | CPT/HCPCS: 97014; 97110; 97140; G0283 ==

== ENCOUNTER 2025-03-12 10:23 | Outpatient (POV) | payer BC, SELFPAY ==
[2025-03-12 10:55] VITALS: BP 133/78; PULSE 64; RESP 18; O2SAT 98; BMI 25.4
--- NOTE | 2025-03-12 11:19 | EXP.PAIN.OV ---
HPI Data of Consult Patient: new to practice Consult date: 03/12/25 Requesting Physician: Amanda Stewart APRN Primary Care Provider: Harvinder Munoz MD Reason for consult: Neck pain, shoulder tension, headaches, numbness History of present illness: Mr. Barron is a 59 year old male who presents today as a new patient. He is a referral from [facility]. Today he rates his pain a 5 out of 10. Patient states that a lot of this started in September unrelated to any specific injury or trauma. Patient does state in the past he had had some similar symptoms over the years. He states that when he was younger he has had a couple injuries including being ran over by a tractor when he was little and then around 1998 he fell backward onto some 2 x 8's causing neck issues. Patient does state that this episode has been ongoing and is constant. He states that it is causing a lot of disability and interfering with his ability perform activities of daily living such as cooking and cleaning. Patient does state that it goes from his neck into the base of his head causing worsening headache, vertigo can affect his vision and really does mess with his balance. Patient states any type of movement whether looking up or down or tffk-bc-elum is very aggravating and triggering. Patient has difficulty driving due to this and even filling out her paperwork today stated that the looking downward is causing significant pain. He has tried [id number] Tylenol along with prescription medication such as tizanidine with minimal improvement. Patient has been seen by both physical therapy and chiropractor therapy however stated this made it worse. He states that the chiropractor claimed that his upper vertebrae in his cervical spine had moved and tried through manipulation to adjust it back however had no success. Patient has continued conservative therapy of at home exercising and stretching for longer than 12 weeks with no additional improvement. Patient does state that he feels like the cold temperatures really aggravated this along with having what he thought was a sinus infection and that is just not been able to ease down. Patient denies any radiating symptoms into his arms or hands. Patient states he has had multiple scans to rule out any tumors or something along those lines. He is scheduled to see neurology at [facility] in May. His Hasmukh has been reviewed and is appropriate. Pain at rest (0-10 scale): 5 Has patient had previous pain injection?: No Conservative treatment options previously tried: Home exercise plan (Longer than 12 weeks), Physical Therapy (Made worse) and Chiropractor (Made worse) cc:: CC: Amanda Setwart APRN [facility] Disclaimer: The information contained in this section may have been updated after the patient was seen, as this information can be updated by other users. Medical History (Updated 03/12/25 @ 11:27 by Amanda Stewart APRN) Tick bite Wedge compression fracture of L1 vertebra Concussion Alpha-gal syndrome Family History (Updated 03/12/25 @ 10:58 by Olivia Agosto RN) Other Unknown family medical history Social History (Updated 03/12/25 @ 10:58 by Olivia Agosto RN) Smoking Status: Never smoker alcohol intake: never current occupational status: retired Travel in the last 8 weeks?: None Review of Systems Review of Systems Review of systems:: pertinent systems reviewed and negative unless documented below Review of systems (narrative): Review of Systems: General: No recent weight changes, no fever, no sleep disturbances Respiratory: No cough, no shortness of air, no recurring pulmonary infections Cardiovascular/peripheral vascular: No chest pain, no palpitations, no edema, no shortness of breath Gastrointestinal: No new onset incontinence, normal bowel movements reported Genitourinary: No new onset incontinence Musculoskeletal: Neck pain, headaches, muscle tension Psychiatric: [Normal mood/affect] Neurological: [Denies weakness in extremities], [denies balance issues] Meds Home Medications and Allergies Home Medications ?Medication ?Instructions ?Recorded ?Confirmed ?Type dapagliflozin propanediol 10 mg 10 mg PO DAILY 11/15/24 12/20/24 History tablet (Farxiga) fluticasone propionate 50 1 spray intranasal DAILY 11/15/24 12/20/24 History mcg/actuation nasal spray,suspension metformin 500 mg tablet,extended 1,000 mg PO BID 11/15/24 12/20/24 History release 24 hr pioglitazone 30 mg tablet 30 mg PO DAILY 11/15/24 12/20/24 History cefdinir 300 mg capsule 300 mg PO BID 12/20/24 12/20/24 History celecoxib 200 mg capsule 200 mg PO DAILY 12/20/24 12/20/24 History diazepam 2 mg tablet 2 mg PO HSP PRN Sleep 12/20/24 12/20/24 History promethazine-DM 6.25 mg-15 mg/5 mL 5 ml PO Q6HP PRN Nausea And 12/20/24 12/20/24 History oral syrup Vomiting sumatriptan succinate 100 mg tablet 100 mg PO DIRECTED 12/20/24 12/20/24 History tizanidine 4 mg tablet 4 mg PO TID 12/20/24 12/20/24 History New Prescriptions to Start Prescriptions: Allergies Allergy/AdvReac Type Severity Reaction Status Date / Time Beef Containing Products Allergy Hives Verified 12/20/24 12:49 Milk Containing Products Allergy Hives Verified 12/20/24 12:49 (Dairy) Pork/Porcine Containing Allergy Hives Verified 12/20/24 12:49 Products PENICILLIN Allergy Intermediate I-HIVES Uncoded 10/17/17 14:22 Objective Narrative: Physical Exam: General: Alert and oriented x3, no acute distress, pleasant and cooperative Lungs: Respirations even and unlabored, symmetrical chest expansion Eyes: PERRL Musculoskeletal: Flexion and extension of cervical [spine] somewhat guarded secondary to pain, [antalgic gait noted] positive Kemps test Neurological: Speech clear, no gross sensory deficit Additional findings Additional findings: Proscan imaging 12/27/2024 cervical MRI without contrast Findings: Cerebral tonsils are normally positioned. No evidence of Michael malformation. Slight convexity of the cervical spine to the right. Straightening of the normal cervical lordosis likely related to cervical sprain/strain. C1-C2 articulation is unable remarkable except for mild degree of pannus formation. C2-C3: Disc desiccation. Anterior spondylosis. Disc height narrowing. 5 mm broad-based protrusion left-sided effacing the thecal sac without cord compression. No evidence of spinal canal stenosis. Facet arthropathy with mild left foraminal narrowing. C3-C4: Anterior spondylosis. 4 mm central HNP minimally flattening the cord. Left Luschka joint hypertrophy and facet arthropathy with mild left foraminal stenosis. C4-C5: Anterior spondylosis. Disc height narrowing and disc desiccation. 4 mm central and rightward HNP minimally flattening the cord. Luschka joint hypertrophic and facet arthropathy with moderate left and mild right foraminal stenosis. C5-C6: Anterior spondylosis. Disc height narrowing and disc desiccation. Broad-based bulging disc more prominent in the midline mildly flattening the cord. Mild spinal canal stenosis. Luschka joint hypertrophy and facet arthropathy with moderate right and mild left foraminal stenosis. C6-C7: Minimal disc bulge barely indenting the thecal sac. No evidence of spinal canal stenosis. Tiny by foraminal protrusions with mild biforaminal narrowing. C7-T1: No evidence of compressive disc disease or spinal canal or foraminal stenosis Assessment and Plan *Assessment and plan (1) Cervical spondylosis: Status: Acute Category: Medical Code(s): M47.812 - Spondylosis without myelopathy or radiculopathy, cervical region (2) Facet arthropathy, cervical: Status: Acute Category: Medical Code(s): M47.812 - Spondylosis without myelopathy or radiculopathy, cervical region (3) Neck pain: Status: Acute Category: Medical Code(s): M54.2 - Cervicalgia (4) Chronic headache: Status: Acute Category: Medical Code(s): R51.9 - Headache, unspecified; G89.29 - Other chronic pain (5) Vertigo: Status: Acute Category: Medical Code(s): R42 - Dizziness and giddiness Plan Patient is experiencing significant pain in his neck that is worse with bending, twisting or lifting. Patient does state that it does interfere with his ability perform activities of daily living such as cooking and cleaning. Patient did have limited range of motion of his cervical spine with a positive Kemps test during today's visit. I did discuss with the patient that I do believe she would benefit from a cervical medial branch block. Risk and benefits were discussed with the patient and he would like to proceed forward with this plan of care. Patient has tried and failed conservative therapy including oral medications, heat and ice, topicals, physical therapy and chiropractor therapy and at home stretching exercise for longer than 12 weeks that was physician guided. Patient has been experiencing chronic neck pain for longer than 5 months and does have a history years ago. Patient was counseled that if he does get significant relief with his first cervical medial branch block that we will plan on repeating it with the plan to progress forward to a cervical RFA at a later date. Patient agrees with this plan of care. Patient will be scheduled for his first diagnostic cervical medial branch block bilaterally C4-C5 and C5-C6 under fluoroscopy. Patient will also be ordered compounded cream and we will send a referral to Dr. Orlando since he is not able to get into the neurologist there at [place] until May. Patient agrees with this plan of care. Patient has been instructed to contact the clinic with any concerns before the next appointment. Dr. Dunham has reviewed this note and agrees with this plan of care. This note was dictated using voice recognition software and make contain errors or omissions. All injections are used with Lidocaine, Bupivacaine and Depo Medrol. Occasionally urine drug screen is needed to verify patient's compliance with our office pain contract. This is ordered based off specific treatments related to chronic pain with the potential to abuse certain medications.
== END 2025-03-12 23:59 | disposition home or self-care (01) ==
LOC: SC.PAIN 10:26
PROVIDERS: PCP Family Medicine; Visit Provider Nurse Practitioner Family
DX: M47.812 Spondylosis without myelopathy or radiculopathy, cervical region (principal); M54.2 Cervicalgia; R51.9 Headache, unspecified; G89.29 Other chronic pain; R42 Dizziness and giddiness; Z73.89 Other problems related to life management difficulty
CPT/HCPCS: 99202; G0463

== ENCOUNTER 2025-03-17 08:30 | Outpatient (POV) | payer BC, SELFPAY ==
--- NOTE | 2025-03-17 08:54 | EXP.PAIN.SOA ---
[facility] Disclaimer: The information contained in this section may have been updated after the patient was seen, as this information can be updated by other users. Medical History (Updated 03/12/25 @ 11:27 by Amanda Stewart APRN) Tick bite Wedge compression fracture of L1 vertebra Concussion Alpha-gal syndrome Family History (Updated 03/12/25 @ 10:58 by Olivia Agosto RN) Other Unknown family medical history Social History (Updated 03/12/25 @ 10:58 by Olivia Agosto RN) Smoking Status: Never smoker alcohol intake: never current occupational status: retired Travel in the last 8 weeks?: None PM Subjective & Objective Subjective Subjective:: Patient is a pleasant 59-year-old male who presents today for insurance denial of his cervical injection. Today he rates his pain a 6 out of 10. He denies any new injuries or trauma. He states he is still having extreme pain. His neck and continues to deny radiating symptoms. Patient does state he has had to be more active this past week and weekend due to not having his help show up and he has to do a lot more activity around the farm. He states he knows this is making his symptoms worse. Patient still has very limited mobility and range of motion of his neck. Patient has tried and failed conservative therapy. He is stating the pain interferes with his ability perform activities of daily living such as cooking and cleaning. Review of Systems: General: No recent weight changes, no fever, no sleep disturbances Respiratory: No cough, no shortness of air, no recurring pulmonary infections Cardiovascular/peripheral vascular: No chest pain, no palpitations, no edema, no shortness of breath Gastrointestinal: No new onset incontinence, normal bowel movements reported Genitourinary: No new onset incontinence Musculoskeletal: Neck pain Psychiatric: [Normal mood/affect] Neurological: [Denies weakness in extremities], [denies balance issues] Initial note sent to insurance: Mr. Barron is a 59 year old male who presents today as a new patient. He is a referral from [facility] office. Today he rates his pain a 5 out of 10. Patient states that a lot of this started in September unrelated to any specific injury or trauma. Patient does state in the past he had had some similar symptoms over the years. He states that when he was younger he has had a couple injuries including being ran over by a tractor when he was little and then around 1998 he fell backward onto some 2 x 8's causing neck issues. Patient does state that this episode has been ongoing and is constant. He states that it is causing a lot of disability and interfering with his ability perform activities of daily living such as cooking and cleaning. Patient does state that it goes from his neck into the base of his head causing worsening headache, vertigo can affect his vision and really does mess with his balance. Patient states any type of movement whether looking up or down or yzow-qy-enbl is very aggravating and triggering. Patient has difficulty driving due to this and even filling out her paperwork today stated that the looking downward is causing significant pain. He has tried gsme-les-qknulav Tylenol along with prescription medication such as tizanidine with minimal improvement. Patient has been seen by both physical therapy and chiropractor therapy however stated this made it worse. He states that the chiropractor claimed that his upper vertebrae in his cervical spine had moved and tried through manipulation to adjust it back however had no success. Patient has continued conservative therapy of at home exercising and stretching for longer than 12 weeks with no additional improvement. Patient does state that he feels like the cold temperatures really aggravated this along with having what he thought was a sinus infection and that is just not been able to ease down. Patient denies any radiating symptoms into his arms or hands. Patient states he has had multiple scans to rule out any tumors or something along those lines. He is scheduled to see neurology at [facility] in May. His Hasmukh has been reviewed and is appropriate. Pain at rest (0-10 scale): 6 Objective Objective:: Physical Exam: General: Alert and oriented x3, no acute distress, pleasant and cooperative Lungs: Respirations even and unlabored, symmetrical chest expansion Eyes: PERRL Musculoskeletal: Flexion and extension of cervical [spine] somewhat guarded secondary to pain, [antalgic gait noted] positive Kemps test Neurological: Speech clear, no gross sensory deficit Has patient had previous pain injection?: No Conservative treatment options previously tried: Home exercise plan Length of treatment: Longer than 12 weeks, Physical Therapy Length of treatment: Made worse and Chiropractor Length of treatment: Made worse Meds Home Medications and Allergies Home Medications ?Medication ?Instructions ?Recorded ?Confirmed ?Type dapagliflozin propanediol 10 mg 10 mg PO DAILY 11/15/24 03/12/25 History tablet (Farxiga) fluticasone propionate 50 1 spray intranasal DAILY 11/15/24 03/12/25 History mcg/actuation nasal spray,suspension metformin 500 mg tablet,extended 1,000 mg PO BID 11/15/24 03/12/25 History release 24 hr pioglitazone 30 mg tablet 30 mg PO DAILY 11/15/24 03/12/25 History celecoxib 200 mg capsule 200 mg PO DAILY 12/20/24 03/12/25 History diazepam 2 mg tablet 2 mg PO HSP PRN Sleep 12/20/24 03/12/25 History sumatriptan succinate 100 mg tablet 100 mg PO DIRECTED 12/20/24 03/12/25 History tizanidine 4 mg tablet 4 mg PO TID 12/20/24 03/12/25 History New Prescriptions to Start Prescriptions: Allergies Allergy/AdvReac Type Severity Reaction Status Date / Time Beef Containing Products Allergy Hives Verified 12/20/24 12:49 Milk Containing Products Allergy Hives Verified 12/20/24 12:49 (Dairy) Pork/Porcine Containing Allergy Hives Verified 12/20/24 12:49 Products PENICILLIN Allergy Intermediate I-HIVES Uncoded 10/17/17 14:22 Assessment and Plan *Assessment and plan (1) Cervical spondylosis: Status: Acute Category: Medical Code(s): M47.812 - Spondylosis without myelopathy or radiculopathy, cervical region (2) Facet arthropathy, cervical: Status: Acute Category: Medical Code(s): M47.812 - Spondylosis without myelopathy or radiculopathy, cervical region (3) Neck pain: Status: Acute Category: Medical Code(s): M54.2 - Cervicalgia Plan Proscan imaging 12/27/2024 cervical MRI without contrast Findings: Cerebral tonsils are normally positioned. No evidence of Michael malformation. Slight convexity of the cervical spine to the right. Straightening of the normal cervical lordosis likely related to cervical sprain/strain. C1-C2 articulation is unable remarkable except for mild degree of pannus formation. C2-C3: Disc desiccation. Anterior spondylosis. Disc height narrowing. 5 mm broad-based protrusion left-sided effacing the thecal sac without cord compression. No evidence of spinal canal stenosis. Facet arthropathy with mild left foraminal narrowing. C3-C4: Anterior spondylosis. 4 mm central HNP minimally flattening the cord. Left Luschka joint hypertrophy and facet arthropathy with mild left foraminal stenosis. C4-C5: Anterior spondylosis. Disc height narrowing and disc desiccation. 4 mm central and rightward HNP minimally flattening the cord. Luschka joint hypertrophic and facet arthropathy with moderate left and mild right foraminal stenosis. C5-C6: Anterior spondylosis. Disc height narrowing and disc desiccation. Broad-based bulging disc more prominent in the midline mildly flattening the cord. Mild spinal canal stenosis. Luschka joint hypertrophy and facet arthropathy with moderate right and mild left foraminal stenosis. C6-C7: Minimal disc bulge barely indenting the thecal sac. No evidence of spinal canal stenosis. Tiny by foraminal protrusions with mild biforaminal narrowing. C7-T1: No evidence of compressive disc disease or spinal canal or foraminal stenosis Patient is continuing to experience significant pain in his neck that is worse with bending, twisting or lifting. Patient denies any radiating symptoms to his arms or hands. Patient does state that it does interfere with his ability perform activities of daily living such as cooking and cleaning. Patient did have limited range of motion of his cervical spine with a positive Kemps test again during today's visit. Patient does have significant findings on his cervical imaging showing that he is an appropriate candidate of the cervical block. I do believe he would still benefit from this injection. Risk and benefits were discussed with the patient and he would like to proceed forward with this plan of care. Patient has tried and failed conservative therapy including oral medications, heat and ice, topicals, physical therapy and chiropractor therapy and at home stretching exercise for longer than 12 weeks that was physician guided. Patient has been experiencing chronic neck pain for longer than 5 months and does have a history years ago. Patient was counseled that if he does get significant relief with his first cervical medial branch block that we will plan on repeating it with the plan to progress forward to a cervical RFA at a later date. Patient agrees with this plan of care. Patient will be scheduled for his first diagnostic cervical medial branch block bilaterally C4-C5 and C5-C6 under fluoroscopy. Patient has been instructed to contact the clinic with any concerns before the next appointment. Dr. Dunham has reviewed this note and agrees with this plan of care. This note was dictated using voice recognition software and make contain errors or omissions. All injections are used with Lidocaine, Bupivacaine and dexamethasone unless a diagnostic injection at which there is no steroid injected. Occasionally urine drug screen is needed to verify patient's compliance with our office pain contract. This is ordered based off specific treatments related to chronic pain with the potential to abuse certain medications.
[2025-03-17 09:35] VITALS: BP 134/71; PULSE 66; RESP 18; O2SAT 97; BMI 25.7
== END 2025-03-17 23:59 | disposition home or self-care (01) ==
LOC: SC.PAIN 08:31
PROVIDERS: PCP Family Medicine; Visit Provider Nurse Practitioner Family
DX: M47.812 Spondylosis without myelopathy or radiculopathy, cervical region (principal); M54.2 Cervicalgia; Z73.89 Other problems related to life management difficulty
CPT/HCPCS: 99212; G0463

== ENCOUNTER 2025-03-19 07:05 | Outpatient (CLI) | payer BC, SELFPAY ==
--- OUTSIDE RECORDS SUMMARY | 2025-03-19 07:09 | XMS_ITS ---
Author Organization Unknown Medications Medication Instructions Effective Dates (start - stop) Status dapagliflozin 10 MG Oral Tab let [Farxiga] [id number]:00:00.000+00:0 0 - Completed dapagliflozin 10 MG Oral Tab let [Farxiga] [id number]:00:00.000+00:0 0 - Completed meloxicam 15 MG Oral Tablet 2022:00:00.000+00:00 - Completed - [id number]:00 :00.000+00:00 - Completed atorvastatin 40 MG Oral Tablet [id number]:00:00.000+00:00 - Completed dapagliflozin 10 MG Oral Tab let [Farxiga] [id number]:00:00.000+00:0 0 - Completed - [id number]:00 :00.000+00:00 - Completed 24 HR metformin hydrochlorid e 500 MG Extended Release Oral Tablet [id number]:00:00.00 0+00:00 - Completed 24 HR metformin hydrochlorid e 500 MG Extended Release Oral Tablet [id number]:00:00.00 0+00:00 - Completed 24 HR metformin hydrochlorid e 500 MG Extended Release Oral Tablet [id number]:00:00.00 0+00:00 - Completed - [id number]:00 :00.000+00:00 - Completed - [id number]:00 :00.000+00:00 - Completed dapagliflozin 10 MG Oral Tab let [Farxiga] [id number]:00:00.000+00:0 0 - Completed meloxicam 15 MG Oral Tablet 2022:00:00.000+00:00 - Completed prednisone 20 MG Oral Tablet 01-01-0900:00:00.000+00:00 - Completed Patient Care team information Name Category Status Period Participants - - Proposed period not known -
[2025-03-19 07:25] LABS: Basophils # 0.1 K/mm3 (0-0.2); Basophils % 1.2 % (0.1-2.0); Eosinophils # 0.2 Kmm3 (0.0-0.4); Eosinophils % 3.4 % (0.1-12.0); Hemoglobin 15.4 g/dL (14.1-18.0); Immature Granulocytes # 0.03 10^3uL; Immature Granulocytes % 0.5 %; Lymphocytes # 1.6 K/mm3 (0.7-4.5); Lymphocytes % 28.6 % (10-50); Mean Corpuscular HGB Conc 33.5 g/dL (31.8-35.4); Mean Corpuscular Hemoglobin 30.2 pg (27.0-31.2); Mean Corpuscular Volume 90.2 fl (80-94); Mean Platelet Volume 9.9 fl (7.4-10.4); Monocytes # 0.6 K/mm3 (0.1-1.0); Monocytes % 9.9 % (1.7-9.3); Neutrophils # 3.2 K/mm3 (1.8-7.8); Neutrophils % 56.4 % (37.0-80.0); Nucleated Red Blood Cells # 0 10^3/uL; Nucleated Red Blood Cells % 0 %; Platelet Count 297 K/mm3 (142-424); Red Cell Distribution Width 12.1 % (11.5-17.5); Red Cell Distribution Width-SD 39.9 fL; White Blood Count 5.6 K/mm3 (4.8-10.8)
[2025-03-19 07:57] LABS: Alanine Aminotransferase 26 U/L (12-78); Albumin Level 4.5 g/dl (3.5-5.0); Albumin/Globulin Ratio 2.1 (1.1-1.8); Alkaline Phosphatase 65 U/L (38-126); Anion Gap 9.3 mEq/L (5-15); Aspartate Amino Transferase 27 U/L (17-59); Bilirubin,Total 1.4 mg/dl (0.2-1.3); Blood Urea Nitrogen 28 mg/dl (9-20); Carbon Dioxide 29 mmol/L (22.0-30.0); Chloride 104 mmol/L (98-107); Estimated Glomerular Filt Rate 99 ml/min (>60); GFR (African American) 119 ML/MIN (>60); Globulin 2.1 g/dL (1.3-3.2); Glucose 127 mg/dl (74-100); Potassium 4.3 mmoL/L (3.5-5.1); Sodium 138 mmol/L (136-145); Total Protein,Serum 6.6 g/dl (6.3-8.2)
[2025-03-19 08:33] LABS: Erythrocyte Sedimentation Rate 1 mm/hr (0-20)
[2025-03-20 09:23] LABS: Anti-Centromere B Antibodies <0.2 AI (0.0-0.9); Anti-DNA (DS) Ab Qn <1 IU/mL (0-9); Anti-Jo-1 <0.2 AI (0.0-0.9); Anti-Smith Antibody <0.2 AI (0.0-0.9); Antichromatin Antibodies <0.2 AI (0.0-0.9); Antiscleroderma-70 Antibodies <0.2 AI (0.0-0.9); RNP Antibodies 0.3 AI (0.0-0.9); Sjogren's Anti-SS-A <0.2 AI (0.0-0.9); Sjogren's Anti-SS-B <0.2 AI (0.0-0.9)
== END 2025-03-19 23:59 | disposition home or self-care (01) ==
LOC: LAB 07:08
PROVIDERS: PCP Family Medicine; Visit Provider Specialist
DX: G03.0 Nonpyogenic meningitis (principal); M54.2 Cervicalgia; G89.29 Other chronic pain; E11.9 Type 2 diabetes mellitus without complications; R51.9 Headache, unspecified; S20.461S Insect bite (nonvenomous) of right back wall of thorax, sequela; W57.XXXS Bitten or stung by nonvenomous insect and other nonvenomous arthropods, sequela
CPT/HCPCS: 36415; 80053; 85025; 85651; 86225; 86235

== ENCOUNTER 2025-04-01 06:59 | Outpatient (CLI) | payer BC, SELFPAY ==
--- OUTSIDE RECORDS SUMMARY | 2025-04-01 07:02 | XMS_ITS ---
Author Organization Unknown Medications Medication Instructions Effective Dates (start - stop) Status dapagliflozin 10 MG Oral Tab let [Farxiga] [id number]:00:00.000+00:0 0 - Completed dapagliflozin 10 MG Oral Tab let [Farxiga] [id number]:00:00.000+00:0 0 - Completed meloxicam 15 MG Oral Tablet 2022:00:00.000+00:00 - Completed - [id number]:00 :00.000+00:00 - Completed atorvastatin 40 MG Oral Tablet [id number]:00:00.000+00:00 - Completed dapagliflozin 10 MG Oral Tab let [Farxiga] [id number]:00:00.000+00:0 0 - Completed - [id number]:00 :00.000+00:00 - Completed 24 HR metformin hydrochlorid e 500 MG Extended Release Oral Tablet [id number]:00:00.00 0+00:00 - Completed 24 HR metformin hydrochlorid e 500 MG Extended Release Oral Tablet [id number]:00:00.00 0+00:00 - Completed 24 HR metformin hydrochlorid e 500 MG Extended Release Oral Tablet [id number]:00:00.00 0+00:00 - Completed - [id number]:00 :00.000+00:00 - Completed - [id number]:00 :00.000+00:00 - Completed dapagliflozin 10 MG Oral Tab let [Farxiga] [id number]:00:00.000+00:0 0 - Completed meloxicam 15 MG Oral Tablet 2022:00:00.000+00:00 - Completed prednisone 20 MG Oral Tablet 01-01-0900:00:00.000+00:00 - Completed Patient Care team information Name Category Status Period Participants - - Proposed period not known -
[2025-04-02 16:41] LABS: EBV Ab VCA, IgM <36.0 U/mL (0.0-35.9)
[2025-04-03 16:12] LABS: Epstein-Barr DNA Quant, PCR Negative (Negative)
== END 2025-04-01 23:59 | disposition home or self-care (01) ==
LOC: LAB 07:01
PROVIDERS: PCP Family Medicine; Visit Provider Specialist
DX: G03.0 Nonpyogenic meningitis (principal); R53.82 Chronic fatigue, unspecified; R53.81 Other malaise; R51.9 Headache, unspecified; G89.29 Other chronic pain
CPT/HCPCS: 36415; 86665; 87799

== ENCOUNTER 2025-04-08 08:22 | Day surgery (SDC) | payer BC, SELFPAY ==
[2025-04-08 08:40] VITALS: BP 105/66; PULSE 59; RESP 16; O2SAT 97; BMI 26.1
[2025-04-08] MEDS: LIDOCAINE 1% 5ML PF VIAL 5 ML (10:01)
[2025-04-08] MEDS: BUPIVACAINE 0.25% 10ML INJ 25 MG IJ (10:01)
[2025-04-08] MEDS: DEXAMETHASONE 10MG/ML 1ML VIAL 10 MG (10:01)
[2025-04-08 10:02] VITALS: BP 125/82; PULSE 57; RESP 18; O2SAT 98
[2025-04-08 10:03] VITALS: BP 125/82; PULSE 58; RESP 18; O2SAT 98
[2025-04-08] MEDS: IOPAMIDOL-200 (41%);10ML VIAL 3 ML IV (10:06)
[2025-04-08 10:11] VITALS: BP 129/68; PULSE 57; RESP 16; O2SAT 99
--- NOTE | 2025-04-08 10:12 | P.PCN_ITS ---
Procedure Date: 04/08/25 Time: 10:00 Anesthesiologist:: Keith Serrano CRNA Complications:: None Pre-procedure Diagnosis:: Degenerative disc cervical spine. Cervical radiculopathy. Cervical spondylosis. Multilevel cervical facet arthropathy. Post-procedure Diagnosis:: Same. Indications for Procedure:: Patient very pleasant 59-year-old male who comes our clinic today for ROUND ONE bilateral cervical C4-5, C5-6 medial branch blocks/facet injections. He describes posterior cervical neck pain as constant, dull, aching. He reports having difficulty with cervical flexion, extension, left and right rotation. He rates his pain 7/10. Procedure Details:: Informed consent was obtained and the risk and benefits of the procedure was explained to the patient. Patient was taken to the procedure room where noninvasive monitors were placed, including noninvasive blood pressure cuff as well as pulse oximeter. The area over the posterior cervical spine was cleansed using chlorhexidine as a cleansing solution. I anesthetized the skin and haro bcutaneous tissues with 1% Lidocaine. I placed 25 -gauge spinal needles into the facet joint/ medial branches of C4-5, C5-6 bilaterally. Needle placement was confirmed with fluoroscopy. After confirmation of needle placement, each site was injected with 1 mL of 1% lidocaine and 0.25 % Marcaine and 10 mg of Depo- Medrol. A total of 20 mg of depo medrol was used for bilateral medial branch blocks of C4-5, C5-6 bilaterally. Patient tolerated the procedure without difficulty. There were no complications. Plan and Disposition:: Patient was discharged without incident.
== END 2025-04-08 10:11 | disposition home or self-care (01) ==
LOC: SC.PAINP 08:23
PROVIDERS: PCP Family Medicine; Visit Provider Nurse Anesthetist, Certified Registered
DX: M47.812 Spondylosis without myelopathy or radiculopathy, cervical region (principal); M50.121 Cervical disc disorder at C4-C5 level with radiculopathy; M50.122 Cervical disc disorder at C5-C6 level with radiculopathy; E11.9 Type 2 diabetes mellitus without complications; Z79.899 Other long term (current) drug therapy; Z79.84 Long term (current) use of oral hypoglycemic drugs; Z91.018 Allergy to other foods; Z88.0 Allergy status to penicillin; Z91.014 Allergy to mammalian meats
CPT/HCPCS: 64490; 64491; J0665; J1100; J2003; Q9966

== ENCOUNTER 2025-04-23 09:10 | Outpatient (POV) | payer BC, SELFPAY ==
--- OUTSIDE RECORDS SUMMARY | 2024-12-06 07:30 | XMS_ITS ---
Author Organization [facility] Address [address] [facility] [address] [place] [id number] Care Team Providers Care Database Marketing Analyst Name Role Phone Lauri Salcido Primary Care Provider Harvinder Munoz Unavailable [phone] Allergies Allergen (clinical drug ingredient) Drug/Non Drug Allergy documented on EMR Reaction Allergy Type Onset Date Status Penicillin Unknown Drug Allergy Active REASON FOR VISIT Discuss Continued Vertigo, Headaches, Neck/Head pain Medications Medication SIG (Take, Route, Frequency, Duration) Notes Start Date End Date Status Meclizine HCl 25 MG 1 tablet as needed O rally once daily Active tiZANidine HCl 2 MG 1 tablet as needed O rally Three times a day 12/06/2024 Active SUMAtriptan Succinate 100 MG 1 tablet as needed, may take second dose at least 2 hours after first dose up to 2 tablets per day as needed Orally Once a day 12/06/2024 Active diazePAM 2 MG 1 tablet as needed O rally At Bed Time 11/21/2024 Active Ketoconazole 2 % APPLY 1 CREAM TOPICA LLY ONCE DAILY for 30 Active Farxiga 10 MG 1 tab(s) orally once a day for 90 days Active Pioglitazone HCl 30 MG 1 tablet Orally O nce a day for 90 days 07/03/2024 Active OneTouch Verio - 1 test strip fingers tick test two times a day Active metFORMIN HCl ER 500 MG 2 tab(s) orally 2 times a day for 90 days Active Cetirizine HCl 10 MG 1 tablet Orally Onc e a day for 30 day(s) Active Problems Problem Type SNOMED Code ICD Code Onset Dates Problem Status W/U Status Risk Notes Problem [id number] Migraine without aura and without status migrainosus, not intractable (G43.009) Active confirmed Vital Signs Blood pressure systolic 120 mm Hg 12/06/19 25 Blood pressure diastolic 70 mm Hg 025 Heart Rate 68 /min 12/06/2024 Height 69 in 12/06/2024 Weight 178 lbs 12/06/2024 BMI 26.28 kg/m2 12/06/2024 Encounters Encounter Location Date Provider Diagnosis [facility] [address] [place] [id number] 12/06/2024 Harvinder Munoz Migraine without aur a and without status migrainosus, not intractable G43.009 and Disorder of neck M53.82 Assessments Encounter Date Diagnosis (ICD Code) Assessment Notes Treatment Notes Treatment Clinical Notes Section Notes 12/06/2024 Migraine without aura and without status migrainosus, not intractable (ICD-10 - G43.009) 12/06/2024 Disorder of neck (ICD-10 - M53.82) Plan Of Treatment Medication Medication Name Sig Start Date Stop Date Notes tiZANidine HCl 2 MG 1 tablet as needed O rally Three times a day 12/06/2024 SUMAtriptan Succinate 100 MG 1 tablet as needed, may take second dose at least 2 hours after first dose up to 2 tablets per day as needed Orally Once a day 12/06/2024 Next Appt Details Follow Up: via phone to kizzy manuel progress, Reason: Progress Notes * JAYLON JACKSONDOB:[birth year] (59 yo M)Acc No.[id number]:12/06/2024 Progress Notes Patient: JAYLON LATIF Provider: Geni Munoz M.D. :1965 A ge:59 Y S ex:Male Date:12/06/2024 Address:[address] [place] [address] [id number] Pcp:Lauri Salcido Subjective: * Chief Complaints: * 1 . Discuss Continued Vertigo, Headaches, Neck/Head pain. * HPI: N eurology: 59 year old male presents with c/o headache P t here to f/u. Pt states he is no longer dizzy. Pt states he is still getting headaches in the back of his head and neck. Pt states when he gets a headache he does have sensitivity to light and feels light-headed. Pt states headaches are debilitating and he has to lay down. Pt states he had PT yesterday and was told to ask about getting an MRI of his head. * ROS: D ERMATOLOGY: no R martin. n o H aneesh. G ASTROENTEROLOGY: no N ausea. n o V omiting. U ROLOGY: no D ifficulty urinating. n o B lood in urine. * Medical History: D iabetes Mellitus Type II, Hyperlipidemia, Alpha-gal syndrome, Cervical Disc Disease. * Surgical History: D enies Past Surgical History. * Hospitalization/Major Diagno stic Procedure: [facility]- Concussion, wedge compression fracture, elevated BUN 06/27/2019. * Family History: F ather: alive. M other: , diagnosed with Diabetes. * Social History: O ccupation: Retired Ag teacher. * Medications: T aking Cetirizine HCl 10 MG Tablet 1 tablet Orally Once a day , Taking OneTouch Verio - Strip 1 test strip fingerstick test two times a day , Taking metFORMIN HCl ER 500 MG Tablet Extended Release 24 Hour 2 tab(s) orally 2 times a day , Taking Farxiga 10 MG Tablet 1 tab(s) orally once a day , Taking Pioglitazone HCl 30 MG Tablet 1 tablet Orally Once a day , Taking Ketoconazole 2 % Cream APPLY 1 CREAM TOPICALLY ONCE DAILY , Taking Meclizine HCl 25 MG Tablet 1 tablet as needed Orally once daily , Taking diazePAM 2 MG Tablet 1 tablet as needed Orally At Bed Time , Discontinued Zithromax Z-Farooq 250 MG Tablet as directed Orally once daily , Discontinued Promethazine-DM 6.25-15 MG/5ML Syrup 5 ml as needed Orally every 6 hrs , Discontinued Benzonatate 200 MG Capsule 1 capsule as needed Orally Three times a day , Medication List reviewed and reconciled with the patient * Allergies: P enicillin. Objective: * Vitals: W t:178, Temp:98.0, BP:120/70, HR:68, Nurse:marck, Ht: 69, BMI:26.28. * Examination: G eneral Examination: General Appearance: N AD. N nenita: Paraspinal muscle spasm: present bilaterally. Range of motion of neck: limited in all directions. ? Assessment: * Assessment: 1. M igraine without aura and without status migrainosus, not intractable - G43.009 (Primary)? 2. D isorder of neck - M53.82 Plan: * Treatment: 2. D isorder of neck Start tiZANidine HCl Tablet, 2 MG, 1 tablet as needed, Orally, Three times a day, 30, Refills 1.? * Procedure Codes: 3 074F SYST BP LT 130 MM HG, 3078F DIAST BP < 80 MM HG * Follow Up: v ia phone to report progress * Billing Information: * Visit Code: 08004 Office Visit, Est Pt., Level 3. * Procedure Codes: 3074F SYST BP LT 130 MM HG. 3078F DIAST BP < 80 MM HG. * Electronic signature of Bhumi Munoz MD on 04/23/2025 at 09:13 AM EDT Sign off status: Pending * Provider: Geni Munoz M.D. Date: 0 12/06/2024 Generated for Dixie esquivel/Gurpreet/Deannesmitting on: 0 04/23/2025 09:13 AM EDT History and Physical Notes * HPI (History of Present Illness) Category Sub-Category Detail Notes Category Not es Neurology headache Pt here to f/u. Pt states he is no longer dizzy. Pt states he is still getting headaches in the back of his head and neck. Pt states when he gets a headache he does have sensitivity to light and feels light-headed. Pt states headaches are debilitating and he has to lay down. Pt states he had PT yesterday and was told to ask about getting an MRI of his head Examination Category Sub-Category Detail Notes Category Not es General Examination General Appearance: NAD Neck Paraspinal muscle spasm: present bilatera lly Range of motion of neck: limited in all directions
--- OUTSIDE RECORDS SUMMARY | 2024-12-17 07:30 | XMS_ITS ---
Author Organization [facility] Address [address] [facility] [address] [place] [id number] Care Team Providers Care Clinical Nurse Manager Name Role Phone Lauri Salcido Primary Care Provider Harvinder Munoz Unavailable [phone] Allergies Allergen (clinical drug ingredient) Drug/Non Drug [...] e a day for 30 day(s) Active Cefdinir 300 MG 1 cap(s) Orally Two times a day for 7 days 12/12/2024 Active SUMAtriptan Succinate 100 MG 1 tablet as needed, may take second dose at least 2 hours after first dose up to 2 tablets per day as needed Orally Once a day 12/06/2024 Active Celecoxib 200 MG 1 capsule with food Orally Once a day for 30 day(s) 12/17/2024 Active Ketoconazole 2 % APPLY 1 CREAM TOPICA LLY ONCE DAILY for 30 Active Pioglitazone HCl 30 MG 1 tablet Orally O nce a day for 90 days 07/03/2024 Active OneTouch Verio - 1 test strip fingers tick test two times a day Active Farxiga 10 MG 1 tab(s) orally once a day for 90 days Active metFORMIN HCl ER 500 MG 2 tab(s) orally 2 times a day for 90 days Active Problems Problem Type SNOMED Code ICD Code Onset Dates Problem Status W/U Status Risk Notes Problem [id number] New daily persistent headache (G44.52) Active confirmed Problem [id number] 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 Vital Signs Blood pressure systolic 124 mm Hg 12/17/19 25 Blood pressure diastolic 70 mm Hg 025 Heart Rate 71 /min 12/17/2024 Height 69 in 12/17/2024 Weight 176.8 lbs 12/17/2024 BMI 26.11 kg/m2 12/17/2024 Encounters Encounter Location Date Provider Diagnosis [facility] [address] [place] [phone] 12/17/2024 Harvinder [place] New daily persistent headache G44.52 ; Disorder [...] 1 capsule with food Orally Once a day for 30 day(s) 12/17/2024 tiZANidine HCl 2 MG 1 tablet as needed O rally Three times a day 12/06/2024 diazePAM 2 MG 1 tablet as needed Orally At Bed Time 2024 Meclizine HCl 25 MG 1 tablet as needed Orally once daily Next Appt Details Follow Up: via phone to kizzy rt progress, Reason: Progress Notes * LYNN JACKSON:[birth year] (59 yo M)Acc No.[id number]:12/17/2024 Progress Notes Patient: JAYLON LATIF Provider: Geni Munoz M.D. :1965 A ge:59 Y S ex:Male Date:12/17/2024 Address:[address] [place] [address] [place], [id number] Pcp:Lauri Salcido Subjective: * Chief Complaints: * [...] ccupation: Retired Ag teacher. * Medications: T lambertg Cetirizine HCl 10 MG Tablet 1 tablet [...] present bilaterally. Range of motion of neck: normal in all directions. Trapezius tenderness: a bsent bilaterally. Sensations: normal bilaterally. Motor strength: diminished. Assessment: * Assessment: 1. N ew daily [...] patient will be self pay; faxed to [employer]; they will contact Gela Londono 12/30/2024 12:20:22 PM > See phone encounter 3.?Cervical disc disease?Imaging: MRI : Spine, Cervical, without contrast (Performed Date - 12/27/2024)?Abnormal* Irma Coyle 12/25/2024 8:59: 09 AM > patient will be self pay; faxed to [employer]; they will contact albinaGela Michel 12/30/2024 12:20:22 PM > See phone encounter 4.?Osteophyte of cervical spine?Imaging: MRI : Spine, Cervical, without contrast (Performed Date - 12/27/2024)?Abnormal* Irma Coyle 12/25/2024 8:59: 09 AM > patient will be self pay; faxed to [employer]; they will contact NeftaliGela green 12/30/2024 12:20:22 PM > See phone encounter 5.?Dizziness? Stop Meclizine HCl Tablet, 25 MG, 1 tablet as needed, Orally, once daily.?? * Procedure Codes: 3 074F SYST BP LT 130 MM HG, 3078F DIAST BP < 80 MM HG * Follow Up: v ia phone to report progress * Billing Information: * Visit Code: 01908 Office Visit, Est Pt., Level 4. * Procedure Codes: 3074F SYST BP LT 130 MM HG. 3078F DIAST BP < 80 MM HG. * Electronic signature of Bhumi Munoz MD on 04/23/2025 at 09:13 AM EDT Sign off status: Pending * Provider: Geni Munoz M.D. Date: 0 12/17/2024 Generated for Dixie esquivel/Gurpreet/eTransmitting on: 0 04/23/2025 09:13 AM EDT History [...]
--- OUTSIDE RECORDS SUMMARY | 2025-04-23 09:13 | XMS_ITS ---
Author Organization Unknown Medications Medication Instructions Effective Dates (start - stop) Status dapagliflozin 10 MG Oral Tab let [Farxiga] [id number]:00:00.000+00:0 0 - Completed dapagliflozin 10 MG Oral Tab let [Farxiga] [id number]:00:00.000+00:0 0 - Completed meloxicam 15 MG Oral Tablet 2022:00:00.000+00:00 - Completed - [id number]:00 :00.000+00:00 - Completed atorvastatin 40 MG Oral Tablet [id number]:00:00.000+00:00 - Completed dapagliflozin 10 MG Oral Tab let [Farxiga] [id number]:00:00.000+00:0 0 - Completed - [id number]:00 :00.000+00:00 - Completed 24 HR metformin hydrochlorid e 500 MG Extended Release Oral Tablet [id number]:00:00.00 0+00:00 - Completed 24 HR metformin hydrochlorid e 500 MG Extended Release Oral Tablet [id number]:00:00.00 0+00:00 - Completed 24 HR metformin hydrochlorid e 500 MG Extended Release Oral Tablet [id number]:00:00.00 0+00:00 - Completed - [id number]:00 :00.000+00:00 - Completed - [id number]:00 :00.000+00:00 - Completed dapagliflozin 10 MG Oral Tab let [Farxiga] [id number]:00:00.000+00:0 0 - Completed meloxicam 15 MG Oral Tablet 2022:00:00.000+00:00 - Completed prednisone 20 MG Oral Tablet 01-01-0900:00:00.000+00:00 - Completed Patient Care team information Name Category Status Period Participants - - Proposed period not known -
--- OUTSIDE RECORDS SUMMARY | 2025-04-23 09:14 | XMS_ITS | Patient Health Record ---
Author Organization [facility] Address [address] [id number] Care Team Providers Care Lock Up Worker Name Role Phone Lauri Salcido Primary Care Provider Harvinder Munoz Unavailable [phone] Allergies Allergen (clinical drug ingredient) Drug/Non Drug Allergy documented on EMR Reaction Allergy Type Onset Date Status Penicillin Unknown Drug Allergy Active Results Component Value Reference Range Notes CBC Venipuncture (in house) Reviewed date:07/04/2024 12:25:56 PM Interpretation: Performing Lab: Notes/Report: wbc 7.8 3.5 - 10 lymph 20.3% 15 - 50 mid 5.3% 2 - 15 gran 74.4% 35 - 80 rbc 5.23 3.5 - 5.5 hgb 15.5 11.5 - 16.5 hct 47.1 35 - 55 mcv 89.9 75 - 100 mch 29.7 25 - 35 mchc 33.0 31 - 38 platlet 268 100 - 400 Glycohemoglobin A1c (in hous e) Reviewed date:07/04/2024 12:25:56 PM Interpretation:7.6 Performing Lab: Notes/Report: 7.6 glycohemoglobin 7.6% 5 - 6.5 % P-Alpha Gal, Galactose-Alpha -1,3-Galactose (Alpha-Gal) IgE Reviewed date:07/08/2024 03:06:21 PM Interpretation:27.60 Performing Lab: Notes/Report: Test performed by [facility], [facility] [address] [place] [address] , [address], [place] [address] Paul West MD, Exploration Driller CLIA: [id number] Allergen, Food, Alpha Galactose (Alpha-Gal) IgE 27.60 <0.10-0.34 kU/L P-Vitamin B12 Reviewed date:07/08/2024 03:06:21 PM Interpretation:159 Performing Lab: Notes/Report: Test performed by [facility] [address] [place] [address] , [address], [place] [address] Paul West MD, Exploration Driller CLIA: [id number] Vitamin B12 538 455-1762 pg/mL P-Lyme Disease (B. burgodorf makenzie), IgG/IgM, TIFFANY, Serum Reviewed date:07/08/2024 03:06:21 PM Interpretation:Negative Performing Lab: Notes/Report: Test performed by [facility] [address] [place] [address] , [address], [place] [address] Paul West MD, Exploration Driller CLIA: [id number] B burgdorferi (Lyme Disease) IgG Negative Negative B burgdorferi (Lyme Disease) IgM Negative Negative P-Comprehensive Metabolic Pa lelia (CMP) Reviewed date:07/08/2024 03:06:21 PM Interpretation:gluc 117 Performing Lab: Notes/Report: Test performed by [facility] [address] [place] [address] , [address], [place] [address] Paul West MD, Exploration Driller CLIA: [id number] Sodium 141 135-145 mmol/L Potassium 4.8 3.5-5.3 mmol/L Chloride 102 97-108 mmol/L CO2 27 22-32 mmol/L Glucose 117 65-99 mg/dL BUN 22 8-23 mg/dL Creatinine 0.92 0.70-1.30 mg/dL Calcium 9.6 8.6-10.4 mg/dL eGFR by Creatinine 95 >59 mL/min/1.73m2 Protein 6.6 6.0-8.3 g/dL Albumin 4.6 3.5-5.3 g/dL Alkaline Phosphatase 77 40-129 IU/L ALT (SGPT) 20 <5-55 IU/L AST (SGOT) 21 <5-46 IU/L Bilirubin, Total 1.0 <0.2-1.2 mg/dL A/G Ratio 2.3 1.1-2.5 P-[place] Self Pay Representative Fev er, IgG,IgM by IFA Reviewed date:07/08/2024 03:06:21 PM Interpretation:Negative Performing Lab: Notes/Report: RMSF IgM Titer <1:64 <1:64 INTERPRETIVE INFORMATION: Rickettsia rickettsii ([facility]. Spotted Fever) Ab, IgM Less than 1:64 ....... Negative - No significant level of IgM antibody detected. 1:64 or greater ...... Positive - Presence of IgM antibody detected, which may indicate a current or recent infection; however, low levels of IgM antibodies may occasionally persist for more than 12 months post-infection. Antibody reactivity to Rickettsia rickettsii antigen should be considered Spotted Fever group reactive. Other organisms within the group include R. akari, R. conorrii, R. australis and R. sibirica. Seroconversion, a fourfold or greater rise in antibody titer, between acute and convalescent sera is considered strong evidence of recent infection. Acute-phase specimens are collected during the first week of illness and convalescent-phase samples are generally obtained 2-4 weeks after resolution of illness. Ideally these samples should be tested simultaneously at the same facility. If the sample submitted was collected during the acute-phase of illness, submit a marked convalescent sample within 25 days for paired testing. The CDC does not use IgM results for routine diagnostic testing of [place] Spotted Fever, as the response may not be specific for the agent (resulting in false positives) and the IgM response may be persistent from past infection. Performed By: [facility] [address] [place] [address] Exploration Driller: Júnior Short MD, PhD CLIA Number: [id number] RMSF IgG Titer <1:64 <1:64 INTERPRETIVE INFORMATION: [facility] Ab, IgG Less than 1:64 ....... Negative - No significant level of IgG antibody detected. 1:64 - 1:128 ......... Low Positive - Presence of IgG Antibody detected, suggestive of current or past infection. 1:256 or greater ..... Positive - Presence of IgG antibody detected, suggestive of current or past infection. Antibody reactivity to Rickettsia rickettsii antigen should be considered Spotted Fever group reactive. Other organisms within the group include R. akari, R. conorrii, R. australis and R. sibirica. Seroconversion, a fourfold or greater rise in antibody titer, between acute and convalescent sera is considered strong evidence of recent infection. Acute-phase specimens are collected during the first week of illness and convalescent-phase samples are generally obtained 2-4 weeks after resolution of illness. Ideally these samples should be tested simultaneously at the same facility. If the sample submitted was collected during the acute-phase of illness, submit a marked convalescent sample within 25 days for paired testing. P-Lipid Panel Reviewed date:07/08/2024 03:06:21 PM Interpretation:non-hdl 132 Performing Lab: Notes/Report: Test performed by [facility], [address] , [facility], [place] [address] Paul West MD, Exploration Driller CLIA: [id number] Cholesterol 184 <200 mg/dL Triglycerides 128 <150 mg/dL HDL Cholesterol 52 >39 mg/dL Cholesterol / HDL Ratio 3.54 0.00-4.99 Ratio Non-HDL Cholesterol 132 <130 mg/dL LDL Cholesterol (Calculation) 106 <130 mg/dL LDL Cholesterol Levels* Less than 100 mg/dL Optimal 100 to 129 mg/dL Near Optimal/ Above Optimal 130 to 159 mg/dL Borderline High 160 to 189 mg/dL High 190 mg/dL and above Very High * Categories as recommended by the 2004 ATPIII guidelines LDL/HDL Ratio 2.0 <3.3 Ratio LDL Cholesterol Patient History Test Date: 07/03/2024 LDL Results: 106 Units: mg/dL % Change: - P-Magnesium Reviewed date:07/08/2024 03:06:22 PM Interpretation:Normal Performing Lab: Notes/Report: Test performed by [facility] , [address], [place] [address] Paul West MD, Exploration Driller CLIA: [id number] Magnesium 2.2 1.6-2.4 mg/dL P-Phosphorus Reviewed date:07/08/2024 03:06:22 PM Interpretation:Normal Performing Lab: Notes/Report: Test performed by [facility] , [address], [place] [address] Paul West MD, Exploration Driller CLIA: [id number] Phosphorus 3.5 2.5-4.5 mg/dL P-PSA Reviewed date:07/08/2024 03:06:22 PM Interpretation:Normal Performing Lab: Notes/Report: Test performed by [facility] [address] , [address], [place] [address] Paul West MD, Exploration Driller CLIA: [id number] PSA 0.45 <4.00 ng/mL Please note this is an ultrasensitive PSA assay with a lower limit of detection of 0.014 ng/mL. This test is performed by the Juni ECLIA methodology. Values obtained with different assay methods or kits cannot be directly compared. P-TSH reflex to FT4 Reviewed date:07/08/2024 03:06:22 PM Interpretation:Normal Performing Lab: Notes/Report: Test performed by [facility] , [address], [place] [address] Paul West MD, Exploration Driller CLIA: [id number] TSH reflex to FT4 1.69 0.43-5.25 mU/L P-Microalbumin/Creatinine, R andom Urine Sample Reviewed date:07/08/2024 03:06:22 PM Interpretation:Normal Performing Lab: Notes/Report: Test performed by [facility] , [address], [place] [address] Paul West MD, Exploration Driller CLIA: [id number] Albumin/Creatinine Ratio, Urine 6 0-30 ug/mg Microalbumin, Urine, Random 0.3 Creatinine, Urine 53.0 P-Vitamin D 25-Hydroxy Reviewed date:07/08/2024 03:06:22 PM Interpretation:28.4 Performing Lab: Notes/Report: Test performed by [facility] [address] [place] [address] , [place] [address] Paul West MD, Exploration Driller CLIA: [id number] Vitamin D 25-Hydroxy 28.4 30.0-100.0 ng/mL Interpretation of Vitamin D 25 OH: < 20 ng/mL - Deficiency 20 - 29 ng/mL - Insufficiency 30 - 100 ng/mL - Sufficiency > 100 ng/mL - Super-therapeutic- toxicity may occur above this level. Clinical correlation required. MRI : Spine, Cervical, witho ut contrast Reviewed date:12/30/2024 12:21:45 PM Interpretation:Abnormal Performing Lab: Notes/Report: Abnormal Glucose (In-House) Reviewed date:07/04/2024 12:25:56 PM Interpretation:112 Performing Lab: Notes/Report: 112 blood glucose 112 74 - 106 mg/dL Allergy Footnotes Reviewed date:07/08/2024 03:06:22 PM Interpretation: Performing Lab: Notes/Report: Test performed by [facility] [address] [place] [address] , [place] [address] Paul West MD, Exploration Driller CLIA: [id number] Allergy Footnotes SEE COMMENT Reference Ranges and Clinical Implications of Specific IgE Class 0 <0.10 kU/L No significant level detected Class 1 0.10-0.34 kU/L Clinical relevance undetermined Class 2 0.35-0.69 kU/L Low level, ongoing sensitization Class 3 0.70-3.49 kU/L Moderate level, stronger ongoing sensitization Class 4 3.50-17.49 kU/L High level of sensitization Class 5 17.50-49.99 kU/L Very high level of sensitization Class 6 >=50.00 kU/L Very high level of sensitization Influenza Screen (in house) Reviewed date:11/27/2024 09:04:30 AM Interpretation: Performing Lab: Notes/Report: results Neg CBC Fingerstick (in house) Reviewed date:11/27/2024 09:04:38 AM Interpretation: Performing Lab: Notes/Report: wbc 8.3 3.5 - 10 lym 24.2% 15 - 50 mid 5.4% 2 - 15 gran 70.4% 35 - 80 rbc 5.26 3.5 - 5.5 hgb 15.7 11.5 - 16.5 hct 46.9 35 - 55 mcv 89.2 75 - 100 mch 29.9 25 - 35 mchc 33.5 31 - 38 plat 146 100 - 400 Covid test (in house) Reviewed date:11/27/2024 09:04:45 AM Interpretation: Performing Lab: Notes/Report: Result: Neg Reason For Referral Reason [facility] rehab Diagnosis 1 Vertigo (R42) Diagnosis 2 Cervical disc diseas e (M50.90) Diagnosis 3 Disorder of neck (M5 3.82) Referral Organization [facility] Referring Provider First Name Harvinder Referring Provider Last Name Alexander Referring Provider [facility] Referred Provider Physical Therapy, . Referred Provider Specialty Physical The rapist General Notes Irma Coyle 11/21/19 12:47:57 PM > faxed to [facility] PT Referral Priority Routine Diagnosis 1 New daily persistent headache (G44.52) Diagnosis 2 Cervical disc hernia tion (M50.20) Diagnosis 3 Neck pain (M54.2) Diagnosis 4 Dizziness (R42) [facility] Referring Provider First Fernando Bender Referring Provider Last Name Loly Referring Provider [facility] Referred Provider Specialty Neurology General Notes Irma Coyle 10:22:36 AM > faxed to [facility] Tamayo at [facility] Referral Priority Routine Diagnosis 1 New daily persistent headache (G44.52) Diagnosis 2 Neck pain (M54.2) Ref[facility] Referring Provider First Fernando Bender Referring Provider Last Name Loly Referring Provider [facility] Referred Provider NBA PUGA Referred Provider Specialty Neurological Surgery General Notes Irma Coyle 01/07/20 12:08:46 PM > fax to Dr. Puga's office Referral Priority Routine Medications Medication SIG (Take, Route, Frequency, Duration) Notes Start Date End Date Status Cetirizine HCl 10 MG 1 tablet Orally Onc e a day for 30 day(s) Active Cefdinir 300 MG 1 cap(s) Orally Two times a day for 7 days 12/12/2024 Active SUMAtriptan Succinate 100 MG 1 tablet as needed, may take second dose at least 2 hours after first dose up to 2 tablets per day as needed Orally Once a day 12/06/2024 Active OneTouch Verio - 1 test strip fingers tick test two times a day Active tiZANidine HCl 4 MG 1 tablet as needed O rally Three times a day for 30 days 12/17/2024 Active metFORMIN HCl ER 500 MG Take 2 tablets b y mouth twice daily for 90 Active Farxiga 10 MG Take 1 tablet by ivon th once daily for 90 Active Celecoxib 200 MG TAKE 1 CAPSULE BY MO UTH ONCE DAILY WITH FOOD for 30 Active Pioglitazone HCl 30 MG Take 1 tablet by mouth once daily for 90 Active Ketoconazole 2 % APPLY 1 CREAM TOPICA LLY ONCE DAILY for 30 Active Immunizations Vaccine Route Administration Date Status Comme nts COVID 19 Pfizer Unknown 12/23/2020 Administered COVID 19 Pfizer Unknown 01/18/2021 Administered COVID 19 Pfizer Unknown 08/18/2021 Administered Fluzone PF Quad (6-35 months) Unknown 07/26/2021 Administered Fluzone Quad (6months&older) IM Intramuscular 10/10/2023 Administered PNEUMOVAX 23 VACCINE IM Intramuscular 06/28/2019 Administe red Tetanus Tdap-Adacel (over 7yrs) Unknown 04/29/2015 Administered xFlu shot- 6months-36 months of fbe-XWGC-YHVL-trivalent Unknown 07/22/2016 Administered Problems Problem Type SNOMED Code ICD Code Onset Dates Problem Status W/U Status Risk Notes Problem 72473703 Vitamin D deficiency (E55.9) Active confirmed Problem Osteoarthritis (M19.90) Active confirmed Problem 392460922 Cervical disc herniation (M50.20) Active confirmed Problem Peripheral neuropathy (550218502) Peripheral neuropathy (G62.9) Active confirmed Problem 191770402 Peripheral vascular disease (I73.9) Active confirmed Problem 886025101 Cervical disc disease (M50.90) Active confirmed Problem 944078229 Migraine without aura and without status migrainosus, not intractable (G43.009) Active confirmed Problem 99130921 Neck pain (M54.2) Active confirmed Problem 408730936384672 New daily persistent headache (G44.52) Active confirmed Problem 07126001 Hyperlipidemia, unspecified hyperlipidemia type (E78.5) Active confirmed Problem 537064996 Disorder of neck (M53.82) Active confirmed Problem 260565524 Dyslipidemia (E78.5) Active confirmed Problem 812362229 Type 2 diabetes mellitus without complication, without long-term current use of insulin (E11.9) Active confirmed Problem Arthritis of hip (15515892) Hip arthritis (M16.10) Active confirmed Problem 927590152410651 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 Vital Signs Heart Rate 71 /min 12/17/2024 Blood pressure diastolic 70 mm Hg 12/17/2024 Height 69 in 12/17/2024 Blood pressure systolic 124 mm Hg 12/17/2024 Weight 176.8 lbs 12/17/2024 BMI 26.11 kg/m2 12/17/2024 Encounters Encounter Location Date Provider Diagnosis [facility] [address] [facility] [address] [place], [place] [id number] 07/03/2024 Harvinder [place] Type 2 diabetes mellitus without complication, without long-term current use of insulin E11.9 ; Dyslipidemia E78.5 ; Vitamin D deficiency E55.9 ; Rash R21 ; Fatigue, unspecified type R53.83 ; Prostate cancer screening Z12.5 and Tick bite, unspecified site, sequela W57.XXXS [facility] [address] [facility] [address] [place], [place] [id number] 10/28/2024 Harvinder [place] Acute non-recurrent maxillary sinusitis J01.00 and Rash R21 [facility] [address] [facility] [address] [place], [place] [id number] 11/21/2024 Harvinder [place] Vertigo R42 ; Disord er of neck M53.82 and Cervical disc disease M50.90 [facility] [address] [place], [place] [id number] 11/25/2024 Harvinder [place] Acute URI J06.9 [facility] [address] [facility] [address] [place], [place] [id number] 11/28/2024 Harvinder [place] Excessive wax in bot h ears H61.23 and Dizziness R42 [facility] [address] [place], [place] [id number] 12/06/2024 Harvinder [place] Migraine without aur a and without status migrainosus, not intractable G43.009 and Disorder of neck M53.82 [facility] [address] [place], [place] [id number] 12/17/2024 Harvinder [place] New daily persistent headache G44.52 ; Disorder of neck M53.82 ; Cervical disc disease M50.90 ; Osteophyte of cervical spine M25.78 and Dizziness R42 [facility] [address] [place], [place] [id number] 05/10/2024 R Napoleon Loly [facility] [address] [place], [place] [id number] 07/08/2024 Harvinder [place] [facility] [address] [place], [place] [id number] 12/05/2024 R Napoleon Loly [facility] [address] [place], [place] [id number] 12/12/2024 Harvinder [place] [facility] [address] [place], [place] [id number] 12/19/2024 Harvinder [place] [facility] [address] [place], [place] [id number] 12/27/2024 Harvinder [place] Neck pain M54.2 ; Cervical disc herniation M50.20 ; Cervical disc disease M50.90 and Osteophyte of cervical spine M25.78 [facility] [address] [place], [place] [id number] 01/17/2025 R Napoleon Loly Disorder of neck M53 .82 [facility] [address] [place] [id number] 02/14/2025 R Napoleon Loly Disorder of neck M53 .82 [facility] [address] [place], [place] [id number] 03/03/2025 Harvinder [place] [facility] [address] [place] [id number] 03/07/2025 Harvinder [place] Disorder of neck M53 .82 Assessments Encounter Date Diagnosis (ICD Code) Assessment Notes Treatment Notes Treatment Clinical Notes Section Notes 10/28/2024 Rash (ICD-10 - R21) 10/28/2024 Acute non-recurrent maxillary sinusitis (ICD-10 - J01.00) 11/21/2024 Vertigo (ICD-10 - R42) 11/21/2024 Disorder of neck (ICD-10 - M53.82) 11/25/2024 Acute URI (ICD-10 - J06.9) 11/28/2024 Dizziness (ICD-10 - R42) 11/28/2024 Excessive wax in both ears (ICD-10 - H61.23) 12/06/2024 Migraine without aura and without status migrainosus, not intractable (ICD-10 - G43.009) 12/06/2024 Disorder of neck (ICD-10 - M53.82) 07/03/2024 Dyslipidemia (ICD-10 - E78.5) 07/03/2024 Type 2 diabetes mellitus without complication, without long-term current use of insulin (ICD-10 - E11.9) 12/17/2024 New daily persistent headache (ICD-10 - G44.52) 12/17/2024 Disorder of neck (ICD-10 - M53.82) 12/27/2024 Cervical disc herniation (ICD-10 - M50.20) 01/17/2025 Disorder of neck (ICD-10 - M53.82) 02/14/2025 Disorder of neck (ICD-10 - M53.82) 03/07/2025 Disorder of neck (ICD-10 - M53.82) 12/27/2024 Neck pain (ICD-10 - M54.2) 12/27/2024 Cervical disc disease (ICD-10 - M50.90) 12/17/2024 Cervical disc disease (ICD-10 - M50.90) 11/21/2024 Cervical disc disease (ICD-10 - M50.90) 07/03/2024 Vitamin D deficiency (ICD-10 - E55.9) 07/03/2024 Rash (ICD-10 - R21) 12/17/2024 Osteophyte of cervical spine (ICD-10 - M25.78) 12/27/2024 Osteophyte of cervical spine (ICD-10 - M25.78) 07/03/2024 Fatigue, unspecified type (ICD-10 - R53.83) 12/17/2024 Dizziness (ICD-10 - R42) 07/03/2024 Prostate cancer screening (ICD-10 - Z12.5) 07/03/2024 Tick bite, unspecified site, sequela (ICD-10 - W57.XXXS) Plan Of Treatment Pending Test Test Name Order Date Cologuard 06/10/2022 Insurance Providers Payer Name Payer Address Payer Phone Subscriber Number Group Number Insured Name Patient Relationship to Insured Coverage Start Date Coverage End Date [facility] [employer] [address] [place] [address] [id number] JAYLON MEDEIROS Self - patient is the insured Medications Administered Medication Instructions Date of Administration Dosage Notes Dexamethasone 10/10/2023 1 mL Medical (General) History Medical History History ICD Code Diabetes Mellitus Type II Hyperlipidemia Alpha-gal syndrome Cervical Disc Disease Cervical spine osteoarthritis Surgical History Surgery Date(Month/Year) Hospitalization History Reason Date(Month/Year) [facility] ER- Concussion, wedge compression fr acture, elevated BUN 06/27/2019
[2025-04-23 09:32] VITALS: BP 130/75; PULSE 56; RESP 14; O2SAT 98; BMI 25.5
--- NOTE | 2025-04-23 09:56 | EXP.PAIN.SOA ---
[facility] Disclaimer: The information contained in this section may have been updated after the patient was seen, as this information can be updated by other users. Medical History History of lumbar puncture Arthritis Diabetes Tick bite Wedge compression fracture of L1 vertebra Concussion Alpha-gal syndrome Surgical History History of colonoscopy Family History Other Coronary artery disease Social History Smoking Status: Never smoker alcohol intake: never current occupational status: other Travel in the last 8 weeks?: None PM Subjective & Objective Subjective Subjective:: Patient is a pleasant 59-year-old male who presents today for follow-up of his first cervical medial branch blocks C4-C5 and C5-C6 on 04/08/2025. Patient states that he had 2 weeks that were amazing that 100% relief and rated his pain during that time as 0 out of 10. He stated he had neck discomfort and had full range of motion. He states that even his headaches had improved. Patient does state that around Monday or Monday he did start having his neck locked up and that he did apply some topicals and it did ease down some however is rating today his pain is 7 out of 10. He denies any new falls or injuries. Patient would like to progress forward with the next step. Patient does have a lot of difficulty looking up and down or [id number] which is triggering and does aggravate headaches. Patient has continued conservative therapy with minimal improvements. Patient does state the pain is now interfering with his ability to perform activities of daily living such as cooking and cleaning. His Hasmukh has been reviewed and is appropriate. Review of Systems: General: No recent weight changes, no fever, no sleep disturbances Respiratory: No cough, no shortness of air, no recurring pulmonary infections Cardiovascular/peripheral vascular: No chest pain, no palpitations, no edema, no shortness of breath Gastrointestinal: No new onset incontinence, normal bowel movements reported Genitourinary: No new onset incontinence Musculoskeletal: Neck pain Psychiatric: [Normal mood/affect] Neurological: [Denies weakness in extremities], [denies balance issues] Pain at rest (0-10 scale): 7 Objective Objective:: Physical Exam: General: Alert and oriented x3, no acute distress, pleasant and cooperative Lungs: Respirations even and unlabored, symmetrical chest expansion Eyes: PERRL Musculoskeletal: Flexion and extension of cervical [spine] somewhat guarded secondary to pain, [antalgic gait noted] positive Kemps test Neurological: Speech clear, no gross sensory deficit Has patient had previous pain injection?: Yes Percent improvement in pain since last injection: 100% for 2 weeks Conservative treatment options previously tried: Home exercise plan Length of treatment: Longer than 12 weeks, Physical Therapy Length of treatment: Made worse and Chiropractor Length of treatment: Made worse Meds Home Medications and Allergies Home Medications ?Medication ?Instructions ?Recorded ?Confirmed ?Type dapagliflozin propanediol 10 mg 10 mg PO DAILY 11/15/24 04/23/25 History tablet (Farxiga) fluticasone propionate 50 1 spray intranasal DAILY 11/15/24 04/23/25 History mcg/actuation nasal spray,suspension metformin 500 mg tablet,extended 1,000 mg PO BID 11/15/24 04/23/25 History release 24 hr pioglitazone 30 mg tablet 30 mg PO DAILY 11/15/24 04/23/25 History celecoxib 200 mg capsule 200 mg PO DAILY 12/20/24 04/23/25 History sumatriptan succinate 100 mg tablet 100 mg PO DIRECTED 12/20/24 04/23/25 History tizanidine 4 mg tablet 4 mg PO TID 12/20/24 04/23/25 History New Prescriptions to Start Prescriptions: Allergies Allergy/AdvReac Type Severity Reaction Status Date / Time Penicillins Allergy Mild Hives Verified 03/31/25 14:12 Beef Containing Products Allergy Hives Verified 03/31/25 14:12 Milk Containing Products Allergy Hives Verified 03/31/25 14:12 (Dairy) Pork/Porcine Containing Allergy Hives Verified 03/31/25 14:12 Products Assessment and Plan *Assessment and plan (1) Facet arthropathy, cervical: Status: Acute Category: Medical Code(s): M47.812 - Spondylosis without myelopathy or radiculopathy, cervical region (2) Cervical spondylosis: Status: Acute Category: Medical Code(s): M47.812 - Spondylosis without myelopathy or radiculopathy, cervical region (3) Occipital neuralgia of right side: Status: Acute Category: Medical Code(s): M54.81 - Occipital neuralgia (4) Chronic headache: Problem Comment: Slowly improving Status: Chronic Qualifiers: Headache type: unspecified Intractability: intractable Qualified Code(s): R51.9 - Headache, unspecified; G89.29 - Other chronic pain Category: Medical Code(s): R51.9 - Headache, unspecified; G89.29 - Other chronic pain Plan Patient did have a very successful cervical medial branch block with 100% relief lasting 2 weeks. Patient did have improved function as well as decreased pain and rated his pain as 0 out of 10 during those 2 weeks. Patient is now experiencing worsening pain in his neck and does have limited range of motion with a positive Kemps test. I did discuss with patient that I do believe he would benefit from his neck cervical medial branch block injection. Risk and benefits were discussed with patient and he would like to proceed forward with this plan of care. Patient has tried and failed conservative therapy including oral medication, heat and ice, topicals, physical therapy and chiropractor therapy as well as continued at home stretching exercise for longer than 12 weeks. Patient has had this pain for longer than a year. His first cervical medial branch block has been the first thing that is providing significant improvement. Patient will be scheduled for his second cervical medial branch block bilaterally C4-C5 and C5-C6 under fluoroscopy. He was counseled if he again gets significant relief following this we will proceed forward to the cervical RFA at an upcoming visit. We did discuss when we do get to that point that it would be done one-sided a time as the neck is more painful with the ablation. Patient acknowledges understanding agrees with this plan of care. Patient has been instructed to contact the clinic with any concerns before the next appointment. Dr. Dunham has reviewed this note and agrees with this plan of care. This note was dictated using voice recognition software and make contain errors or omissions. All injections are used with Lidocaine, Bupivacaine and dexamethasone. Occasionally urine drug screen is needed to verify patient's compliance with our office pain contract. This is ordered based off specific treatments related to chronic pain with the potential to abuse certain medications.
== END 2025-04-23 23:59 | disposition home or self-care (01) ==
LOC: SC.PAIN 09:11
PROVIDERS: PCP Family Medicine; Visit Provider Nurse Practitioner Family
DX: M47.812 Spondylosis without myelopathy or radiculopathy, cervical region (principal); R51.9 Headache, unspecified; G89.29 Other chronic pain
CPT/HCPCS: 99212; G0463

== ENCOUNTER 2025-05-20 10:05 | Day surgery (SDC) | payer BC, SELFPAY ==
[2025-05-20 10:10] VITALS: BP 136/83; PULSE 61; RESP 18; O2SAT 98; BMI 25.2
[2025-05-20 10:27] VITALS: BP 138/77; PULSE 53; RESP 18; O2SAT 95
[2025-05-20] MEDS: IOPAMIDOL-200 (41%);10ML VIAL 3 ML IV (10:27)
[2025-05-20] MEDS: BUPIVACAINE 0.25% 10ML INJ 25 MG IJ (10:27)
[2025-05-20] MEDS: LIDOCAINE 1% 5ML PF VIAL 5 ML (10:27)
[2025-05-20 10:29] VITALS: BP 138/77; PULSE 54; RESP 18; O2SAT 95
--- NOTE | 2025-05-20 10:32 | EXP.PAIN.PRO ---
Procedure Date: 05/20/25 Time: 10:15 Anesthesiologist:: Keith Serrano CRNA Complications:: None Pre-procedure Diagnosis:: Degenerative disc cervical spine multilevels. Cervical radiculopathy. Cervical spondylosis. Multilevel cervical facet arthropathy. Post-procedure Diagnosis:: Same. Indications for Procedure:: Patient is a very pleasant 60-year-old male who comes our clinic today for round 2 of diagnostic cervical medial branch blocks/facet injections at the bilateral C4-5, C5-6 level. Patient describes posterior cervical neck pain is constant, dull, aching. He is having difficult with cervical flexion, extension, left and right rotation. He rates his pain 7/10. Procedure Details:: Informed consent was obtained and the risk and benefits of the procedure was explained to the patient. Patient was taken to the procedure room where noninvasive monitors were placed, including noninvasive blood pressure cuff as well as pulse oximeter. The area over the posterior cervical spine was cleansed using chlorhexidine as a cleansing solution. I anesthetized the skin and subcutaneous tissues with 1% Lidocaine. I placed 25 -gauge spinal needles into the facet joint/ medial branches of C4-5, C5-6 bilaterally. Needle placement was confirmed with fluoroscopy. After confirmation of needle placement, each site was injected with 1 mL of 1% lidocaine. Patient tolerated the procedure without difficulty. There were no complications. Patient was discharged without incident. Plan and Disposition:: Patient was discharged without incident.
[2025-05-20 10:35] VITALS: BP 121/73; PULSE 57; RESP 18; O2SAT 98
--- NOTE | 2025-05-29 13:46 | PC.NURSE ---
pt called today leaving a voicemail reporting feeling lightheaded and feeling off balance for several days. Pt stated in voicemail it started a couple days after last injection. Provider yesy wills was notified per clinic staff of [facility], contacted pt back via phone. 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 Pt reports symptoms began the day after being in that vehicle. Pt was asking if he could take a muscle relaxer and anti-inflammatory that he was prescribed by Dr. Munoz prior to seeing our office. Notified pt that he should contact Dr. Munoz's office r/t wanting to take those medication again since they were prescribed by him but it would not disrupt his treatment here at our office if he was taking those. Pt verbalized understanding. Stated to pt that with symptoms of lightheaded and feeling off, those area concerning symptoms and our provider advised pt should be evaluated in an emergency room for those symptoms. Pt reports symptoms were worse this morning but have gotten better as the day has gone one. Pt verbalized understanding of provider recommendations. States symptoms are better but if they worsen he will seek ER treatment. Notified provider of my phone conversation with pt.
== END 2025-05-20 10:35 | disposition home or self-care (01) ==
PROVIDERS: PCP Family Medicine; Visit Provider Nurse Anesthetist, Certified Registered
DX: M50.122 Cervical disc disorder at C5-C6 level with radiculopathy (principal); M47.22 Other spondylosis with radiculopathy, cervical region; M19.90 Unspecified osteoarthritis, unspecified site; E11.9 Type 2 diabetes mellitus without complications; Z91.011 Allergy to milk products; Z88.0 Allergy status to penicillin; Z91.018 Allergy to other foods; Z79.84 Long term (current) use of oral hypoglycemic drugs; Z79.899 Other long term (current) drug therapy
CPT/HCPCS: 64490; 64491 ×2; J0665; J2003; Q9966

== ENCOUNTER 2025-06-04 09:37 | Outpatient (POV) | payer BC, SELFPAY ==
--- OUTSIDE RECORDS SUMMARY | 2024-12-17 07:30 | XMS_ITS ---
Author Organization [facility] Address [address] [place] [id number] Care Team Providers Care Safety Advisor Name Role Phone Lauri Salcido Primary Care Provider Harvinder Munoz Unavailable [phone] Allergies Allergen (clinical drug ingredient) Drug/Non Drug Allergy documented on EMR Reaction Allergy Type Onset Date Status Penicillin Unknown Drug Allergy Active Results Component Value Reference Range Notes MRI : Spine, Cervical, witho ut contrast Reviewed date:12/30/2024 12:21:45 PM Interpretation:Abnormal Performing Lab: Notes/Report: Abnormal REASON FOR VISIT bad headaches Medications Medication SIG (Take, Route, Frequency, Duration) Notes Start Date End Date Status tiZANidine HCl 4 MG 1 tablet as needed O rally Three times a day 12/17/2024 Active Cetirizine HCl 10 MG 1 tablet Orally Onc e a day; Duration: 30 day(s) Active Cefdinir 300 MG 1 cap(s) Orally Two times a day; Duration: 7 days 12/12/2024 Active SUMAtriptan Succinate 100 MG 1 tablet as needed, may take second dose at least 2 hours after first dose up to 2 tablets per day as needed Orally Once a day 12/06/2024 Active Celecoxib 200 MG 1 capsule with food Orally Once a day; Duration: 30 day(s) 12/17/2024 Active Ketoconazole 2 % APPLY 1 CREAM TOPICA LLY ONCE DAILY; Duration: 30 Active Pioglitazone HCl 30 MG 1 tablet Orally O nce a day; Duration: 90 days 07/03/2024 Active OneTouch Verio - 1 test strip fingers tick test two times a day Active Farxiga 10 MG 1 tab(s) orally once a day; Duration: 90 days Active metFORMIN HCl ER 500 MG 2 tab(s) orally 2 times a day; Duration: 90 days Active Problems Problem Type SNOMED Code ICD Code Onset Dates Problem Status W/U Status Risk Notes Problem New daily persistent headache (88078656591940 5) New daily persistent headache (G44.52) Active confirmed Problem 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 Vital Signs Blood pressure systolic 124 mm Hg 12/17/19 25 Blood pressure diastolic 70 mm Hg 025 Heart Rate 71 /min 12/17/2024 Height 69 in 12/17/2024 Weight 176.8 lbs 12/17/2024 BMI 26.11 kg/m2 12/17/2024 Encounters Encounter Location Date Provider Diagnosis [facility] [address] [place] [address] [place], [place] [phone] 12/17/2024 Harvinder Munoz New daily persistent headache G44.52 ; Disorder of neck M53.82 ; Cervical disc disease M50.90 ; Osteophyte of cervical spine M25.78 and Dizziness R42 Assessments Encounter Date Diagnosis (ICD Code) Assessment Notes Treatment Notes Treatment Clinical Notes Section Notes 12/17/2024 New daily persistent headache (ICD-10 - G44.52) 12/17/2024 Disorder of neck (ICD-10 - M53.82) 12/17/2024 Cervical disc disease (ICD-10 - M50.90) 12/17/2024 Osteophyte of cervical spine (ICD-10 - M25.78) 12/17/2024 Dizziness (ICD-10 - R42) Plan Of Treatment Medication Medication Name Sig Start Date Stop Date Notes tiZANidine HCl 4 MG 1 tablet as needed O rally Three times a day 12/17/2024 Celecoxib 200 MG 1 capsule with food Orally Once a day; Duration: 30 day(s) 12/17/2024 tiZANidine HCl 2 MG 1 tablet as needed O rally Three times a day 12/06/2024 diazePAM 2 MG 1 tablet as needed Orally At Bed Time 2024 Meclizine HCl 25 MG 1 tablet as needed Orally once daily Next Appt Details Follow Up: via phone to kizzy manuel progress, Reason: Provider Name:Harvinder meeks, 08/26/2025 09:30:00 AM, [address], [place], [phone], Progress Notes * JAYLON JACKSONDOB:[birth year] (60 yo M)Acc No.[id number]:12/17/2024 Progress Notes Patient: JAYLON LATIF Provider: Geni Munoz M.D. :1965 A ge:59 Y S ex:Male Date:12/17/2024 Address:[address] [place], [id number] Pcp:Lauri Salcido Subjective: * Chief Complaints: * 1 . Bad headaches. * HPI: N eurology: 59 year old male presents with c/o headache P t complains of ongoing headaches. Pt states the pain gets so bad that he can sleep up to 18 hours in a day. Pt states Tizanidine does help but not enough for him to be able to continue with daily responsibilities. Pt states that his ears do feel better since being on Cefdinir. Light-headedness has improved as well. * ROS: D ERMATOLOGY: no R martin. n o H aneesh. G ASTROENTEROLOGY: no N ausea. n o V omiting. U ROLOGY: no D ifficulty urinating. n o B lood in urine. * Medical History: D iabetes Mellitus Type II, Hyperlipidemia, Alpha-gal syndrome, Cervical Disc Disease, Cervical spine osteoarthritis. * Surgical History: D enies Past Surgical History. * Hospitalization/Major Diagno stic Procedure: H ER- Concussion, wedge compression fracture, elevated BUN [...] as needed Orally At Bed Time , Taking SUMAtriptan Succinate 100 MG Tablet 1 tablet as needed, may take second dose at least 2 hours after first dose up to 2 tablets per day as needed Orally Once a day , Taking tiZANidine HCl 2 MG Tablet 1 tablet as needed Orally Three times a day , Taking Cefdinir 300 MG Capsule 1 cap(s) Orally Two times a day , Medication List reviewed and reconciled with the patient * Allergies: P enicillin. Objective: * Vitals: W t:176.8, Temp:98.0, BP:124/70, HR:71, Nurse:marck, Ht: 69, BMI:26.11. * Examination: G eneral Examination: General Appearance: N AD. N nenita: Paraspinal muscle spasm: present bilaterally. R dmitriy of motion of neck: normal in all directions. T rapezius tenderness: a bsent bilaterally. S ensations: normal bilaterally. M otor strength: diminished. ? Assessment: * Assessment: 1. N ew daily persistent headache - G44.52 (Primary) 2 . D isorder of neck - M53.82 3 . C ervical disc disease - M50.90 4 . O steophyte of cervical spine - M25.78 5 . D izziness - R42 Plan: * Treatment: 2.?Disorder of neck? Stop diazePAM Tablet, 2 MG, 1 tablet as needed, Orally, At Bed Time;?Stop tiZANidine HCl Tablet, 2 MG, 1 tablet as needed, Orally, Three times a day;?Start tiZANidine HCl Tablet, 4 MG, 1 tablet as needed, Orally, Three times a day, 45 Tablet, Refills 1;?Start Celecoxib Capsule, 200 MG, 1 capsule with food, Orally, Once a day, 30 day(s), 30, Refills 1.?Imaging: MRI : Spine, Cervical, without contrast (Performed Date - 12/27/2024)?Abnormal* Irma Coyle 12/25/2024 8:59: 09 AM > patient will be self pay; faxed to [employer]; they will contact Gela Londono 12/30/2024 12:20:22 PM > See phone encounter 3.?Cervical disc disease?Imaging: MRI : Spine, Cervical, without contrast (Performed Date - 12/27/2024)?Abnormal* Irma Coyle 12/25/2024 8:59: 09 AM > patient will be self pay; faxed to [employer]; they will contact Gela Londono 12/30/2024 12:20:22 PM > See phone encounter 4.?Osteophyte of cervical spine?Imaging: MRI : Spine, Cervical, without contrast (Performed Date - 12/27/2024)?Abnormal* Irma Coyle 12/25/2024 8:59: 09 AM > patient will be self pay; faxed to [employer]; they will contact Gela Londono 12/30/2024 12:20:22 PM > See phone encounter 5.?Dizziness? Stop Meclizine HCl Tablet, 25 MG, 1 tablet as needed, Orally, once daily.?? * Procedure Codes: 3 074F SYST BP LT 130 MM HG, 3078F DIAST BP < 80 MM HG * Follow Up: v ia phone to report progress * Images: Billing Information: * Visit Code: 60604 Office Visit, Est Pt., Level 4. * Procedure Codes: 3074F SYST BP LT 130 MM HG. 3078F DIAST BP < 80 MM HG. * Electronic signature of Bhumi Munoz MD on 06/04/2025 at 09:40 AM EDT Sign off status: Pending * Provider: Geni Munoz M.D. Date: 0 12/17/2024 Generated for Dixie esquivel/Gurpreet/eTransmitting on: 0 06/04/2025 09:40 AM EDT History and Physical Notes * HPI (History of Present Illness) Category Sub-Category Detail Notes Category Not es Neurology headache Pt complains of ongoing headaches. Pt states the pain gets so bad that he can sleep up to 18 hours in a day. Pt states Tizanidine does help but not enough for him to be able to continue with daily responsibilities. Pt states that his ears do feel better since being on Cefdinir. Light-headedness has improved as well Examination Category Sub-Category Detail Notes Category Not es General Examination General Appearance: NAD Neck Paraspinal muscle spasm: present bilatera lly Range of motion of neck: normal in all d irections Trapezius tenderness: absent bilaterally Sensations: normal bilaterally Motor strength: diminished
--- OUTSIDE RECORDS SUMMARY | 2025-05-26 06:45 | XMS_ITS ---
Author Organization [facility] Address [address] [facility] [address] [place] [id number] Care Team Providers Care Marine Service Manager Name Role Phone Lauri Salcido Primary Care Provider [phone] Harvinder Munoz Unavailable [phone] Allergies Allergen (clinical drug ingredient) Drug/Non Drug Allergy documented on EMR Reaction Allergy Type Onset Date Status Penicillin Unknown Drug Allergy Active Results Component Value Reference Range Notes Glucose (In-House) Reviewed date:05/26/2025 11:32:29 AM Interpretation: Performing Lab: Notes/Report: blood glucose 178 74 - 106 mg/dL Glycohemoglobin A1c (in hous e) Reviewed date:05/26/2025 11:32:54 AM Interpretation: Performing Lab: Notes/Report: glycohemoglobin 7.6% 5 - 6.5 % REASON FOR VISIT check up Medications Medication SIG (Take, Route, Frequency, Duration) Notes Start Date End Date Status metFORMIN HCl ER 500 MG 2 tablets Orally twice a day Active Farxiga 10 MG Take 1 tablet by once daily Active OneTouch Verio - 1 test strip fingers tick test two times a day Active Pioglitazone HCl 30 MG 1 tablet Orally O nce a day Active Cetirizine HCl 10 MG 1 tablet Orally Onc e a day; Duration: 30 day(s) Not-Jonathan ing Vital Signs Blood pressure systolic 112 mm Hg 05/26/20 25 Blood pressure diastolic 70 mm Hg 025 Heart Rate 68 /min 05/26/2025 Height 69 in 05/26/2025 Weight 181 lbs 05/26/2025 BMI 26.73 kg/m2 05/26/2025 Encounters Encounter Location Date Provider Diagnosis D[place] [address] [facility] [address] [facility] [address] [place] [id number] 05/26/2025 Harvinder Munoz Type 2 diabetes mellitus without complication, without long-term current use of insulin E11.9 and BMI 26.0-26.9,adult Z68.26 Assessments Encounter Date Diagnosis (ICD Code) Assessment Notes Treatment Notes Treatment Clinical Notes Section Notes 05/26/2025 Type 2 diabetes mellitus without complication, without long-term current use of insulin (ICD-10 - E11.9) Patient does not appear to have high blood pressure. He seems to have defective blood glucose test strips. He has already bought some new strips 05/26/2025 BMI 26.0-26.9,adult (ICD-10 - Z68.26) Plan Of Treatment Medication Medication Name Sig Start Date Stop Date Notes metFORMIN HCl ER 500 MG 2 tablets Orally twice a day Farxiga 10 MG Take 1 tablet by mouth once daily Pioglitazone HCl 30 MG 1 tablet Orally Once a day Treatment Notes Assessment Notes Type 2 diabetes mellitus wit hout complication, without long-term current use of insulin Patient does not appear to have high blo od pressure. He seems to have defective blood glucose test strips. He has already bought some new strips Next Appt Details Follow Up: 3 Months fasting appt., Reason: Provider Name:Harvinder Kinsey , 08/26/2025 09:30:00 AM, [address] [facility] [address] [facility], [address], [place], [id number], Progress Notes * JAQUELIN JACKSONLILIANEDOB:[birth year] (60 yo M)Acc No.[id number]:05/26/2025 Progress Notes Patient: JAYLON LATIF Provider: Geni Munoz M.D. :1965 A ge:60 Y S ex:Male Date:05/26/2025 Address:[address] [facility] [id number] Pcp:Lauri Salcido Subjective: * Chief Complaints: * 1 . Check up. * HPI: E ndocrinology: 60 year old male presents with c/o Recent Blood Sugars P t here to f/u on DM 2. Pt states he is doing well and does not have any concerns today. Pt states his blood sugar at home been 130's . C ardiology: c/o Hyperlipidemia P t is not fasting today. * ROS: D ERMATOLOGY: no R martin. [...] Retired Ag teacher. * Medications: T aking OneTouch Verio - Strip 1 test strip fingerstick test two times a day , Taking Farxiga 10 MG Tablet Take 1 tablet by mouth once daily , Taking Pioglitazone HCl 30 MG Tablet 1 tablet Orally Once a day , Taking metFORMIN HCl ER 500 MG Tablet Extended Release 24 Hour 2 tablets Orally twice a day , Not-Taking Cetirizine HCl 10 MG Tablet 1 tablet Orally Once a day , Discontinued Ketoconazole 2 % Cream APPLY 1 CREAM TOPICALLY ONCE DAILY , Discontinued SUMAtriptan Succinate 100 MG Tablet 1 tablet as needed, may take second dose at least 2 hours after first dose up to 2 tablets per day as needed Orally Once a day , Discontinued Cefdinir 300 MG Capsule 1 cap(s) Orally Two times a day , Discontinued tiZANidine HCl 4 MG Tablet 1 tablet as needed Orally Three times a day , Discontinued Celecoxib 200 MG Capsule 1 capsule Orally Once a day , Medication List reviewed and reconciled with the patient * Allergies: P enicillin. Objective: * Vitals: W t: 181, Temp: 97.7, BP: 112/70, HR: 68, Nurse: marck, Ht: 69, BMI:26.73. * Examination: G eneral Examination: General Appearance: N AD. Assessment: * Assessment: 1. T ype 2 diabetes mellitus without complication, without long-term current use of insulin - E11.9 (Primary) 2 . B DE 26.0-26.9,adult - Z68.26 Plan: * Treatment: Value Reference Range b lood glucose 178 74 - 106 mg/dL * Ashutosh Clarosira 05/26/2025 11:32: 18 AM EDT > Provider reviewed results while patient in office. ?LAB: Glycohemoglobin A1c (in house) (Collection Date & Time - 05/26/2025)* Value Reference Range g lycohemoglobin 7.6% 5 - 6.5 % * King Mariela 05/26/2025 11:32: 48 AM EDT > Provider reviewed results while patient in office. Notes: Patient does not appear to have high blood pressure. He seems to have defective blood glucose test strips. He has already bought some new strips?? * Procedure Codes: 3 6416 CAPILLARY BLOOD DRAW, 56576 GLUCOSE TEST, 27362 GLYCATED HEMOGLOBIN TEST, Modifiers: QW , 3051F HG A1C>EQUAL 7.0%<8.0%, 3074F SYST BP LT 130 MM HG, 3078F DIAST BP < 80 MM HG * Follow Up: 3 Months fasting appt. * Images: Billing Information: * Visit Code: 77301 Office Visit, Est Pt., Level 3. * Procedure Codes: 51599 CAPILLARY BLOOD DRAW. 20002 GLUCOSE TEST. 63045 GLYCATED HEMOGLOBIN TEST. Modifiers: QW 3051F HG A1C>EQUAL 7.0%<8.0%. 3074F SYST BP LT 130 MM HG. 3078F DIAST BP < 80 MM HG. * Electronic signature of Bhumi Munoz MD on 06/04/2025 at 09:40 AM EDT Sign off status: Pending * Provider: Geni Munoz M.D. Date: 05/26/2025 Generated for Dixie esquivel/Gurpreet/eTransmitting on: 0 06/04/2025 09:40 AM EDT History and Physical Notes * HPI (History of Present Illness) Category Sub-Category Detail Notes Category Not es Endocrinology Recent Blood Sugars Pt here to f /u on DM 2. Pt states he is doing well and does not have any concerns today. Pt states his blood sugar at home been 130's Cardiology Hyperlipidemia Pt is not fasting today Examination Category Sub-Category Detail Notes Category Not es General Examination General Appearance: NAD
--- OUTSIDE RECORDS SUMMARY | 2025-06-04 09:40 | XMS_ITS | Clinical Summary ---
Author Organization [facility] Address [address] [place] [address] Care Team Providers Care Licensed Psychologist Manager Name Role Phone Harvinder Munoz MD Primary Care Provider + [phone] Allergies Active Allergy Reactions Criticality Noted Date Comments Penicillins Hives 11/29/2024 Medications pioglitazone (ACTOS) 30 MG tablet Take 1 tablet by mouth once daily for 90 Active SUMAtriptan (IMITREX) 100 MG tablet Daily. 12/06/2024 Active tiZANidine (ZANAFLEX) 4 MG tablet Take 1 tablet by mouth 3 (Three) Times a Day As Needed. Active celecoxib (CeleBREX) 200 MG capsule TAKE 1 CAPSULE BY MOUTH ONCE DAILY WITH FOOD for 30 12/17/2024 Active cetirizine (zyrTEC) 10 MG tablet Take 1 tablet by mouth Daily. Active Farxiga 10 MG tablet Take 10 mg by mouth Daily. Active diazePAM (VALIUM) 2 MG tablet TAKE 1 TABLET BY MOUTH NEEDED AT BEDTIME 11/21/2024 Active fluticasone (FLONASE) 50 MCG/ACT nasal spray 1 spray by Each Nare route Daily. 11/15/2024 Active OneTouch Verio test strip 1 each by Other route 2 (Two) Times a Day. to check glucose Active metFORMIN ER (GLUCOPHAGE-XR) 500 MG 24 hr tablet Take 2 tablets by mouth twice daily for 90 Active Active Problems No known active problems Social History Tobacco Use Types Packs/Day Years Used Date Smoking Tobacco: Never Smokeless Tobacco: Former Chew Tobacco Cessation:Counseling Given: Not Answered Alcohol Use Standard Drinks/Week Comments Never 0 (1 standard drink = 0.6 oz pur e alcohol) Abuse Screen Answer Date Recorded Feels Unsafe at Home or Work/School no 11/29/2024 Feels Threatened by Someone no 11/01 Does Anyone Try to Keep You From Having Contact with Others or Doing Things Outside Your Home? no 11/29/2024 Physical Signs of Abuse Present no 11/29/2024 Sex and Gender Information Value Date Recorded Sex Assigned at Not on file Legal Sex Male 8:12 PM EST Gender Identity Not on file Sexual Orientation Not on file Last Filed Vital Signs Vital Sign Reading Time Taken Comments Blood Pressure 120/70 02/28/2025 10:57 AM EDT Pulse 56 11/29/2024 11:02 PM EST Temperature 36.5 C (97.7 F) 02/28/2025 10:57 AM EDT Respiratory Rate 18 11/29/2024 9:44 PM EST Oxygen Saturation 97% 11/29/2024 11:02 PM EST Inhaled Oxygen Concentration - - Weight 81.9 kg (180 lb 9.6 oz) 02/28/2025 10:57 AM EDT Height 177.8 cm (5' 10 ) 02/28/2025 10:57 AM EDT Body Mass Index 25.91 02/28/2025 10:57 AM EDT Plan of Treatment Health Maintenance Due Date Last Done Comments DIABETIC EYE EXAM 1974 DIABETIC FOOT EXAM 1974 URINE MICROALBUMIN-CREATININ E RATIO (uACR) 1974 COLOGUARD 2009 COLON CANCER SCREENING 5 YEA R SIGMOIDOSCOPY 2009 COLONOSCOPY [address] CANCER SCREENING [address] COLONOGRAPHY 2009 FECAL OCCULT BLOOD TEST 2009 FIT Testing (1 year) 2009 ZOSTER VACCINE (1 of 2) 2014 Pneumococcal Vaccine 50+ (2 of 2 - PCV) 06/28/2020 06/28/2019 COVID-19 Vaccine ( season) 2024 08/18/2021, 01/18/2021, 12/23/2020 ANNUAL PHYSICAL 02/28/2025 HEMOGLOBIN A1C 02/28/2025 HEPATITIS C SCREENING 02/28/2025 TDAP/TD VACCINES (2 - Td or Tdap) 04/29/2025 015 INFLUENZA VACCINE 07/30/2025 10/10/2023, , 07/22/2016 Insurance [employer] Care Teams Licensed Psychologist Manager Relationship Specialty Start Date End Date Harvinder Munoz MD [address] [facility] [address] [place] [id number] PCP - General Family Medicine 11/29/24
--- OUTSIDE RECORDS SUMMARY | 2025-06-04 09:41 | XMS_ITS | Patient Health Record ---
Author Organization [facility] Address [address] [id number] Care Team Providers Care Cushion Former Name Role Phone Lauri Salcido Primary Care Provider Harvinder Munoz Unavailable [phone] Allergies Allergen (clinical drug ingredient) Drug/Non Drug [...] Interpretation:27.60 Performing Lab: Notes/Report: Test performed by [facility], [facility] [address] [place] [address] , [address], [place] [address] Paul West MD, Sheep Sticker CLIA: [id number] Allergen, Food, Alpha Galactose (Alpha-Gal) IgE 27.60 <0.10-0.34 kU/L P-Vitamin B12 Reviewed date:07/08/2024 03:06:21 PM Interpretation:159 Performing Lab: Notes/Report: Test performed by [facility] [address] [place] [address] , [address], [place] [address] Paul West MD, Sheep Sticker CLIA: [id number] Vitamin B12 [phone] pg/mL P-Lyme Disease (B. burgodorf makenzie), IgG/IgM, TIFFANY, Serum Reviewed date:07/08/2024 03:06:21 PM Interpretation:Negative Performing Lab: Notes/Report: Test performed by [facility] [address] [place] [address] , [address], [place] [address] Paul West MD, Sheep Sticker CLIA: [id number] B burgdorferi (Lyme Disease) IgG Negative Negative B burgdorferi (Lyme Disease) IgM Negative Negative P-Comprehensive Metabolic Pa lelia (CMP) Reviewed date:07/08/2024 03:06:21 PM Interpretation:gluc 117 Performing Lab: Notes/Report: Test performed by [facility] [address] [place] [address] , [address], [place] [address] Paul West MD, Sheep Sticker CLIA: [id number] Sodium 141 135-145 mmol/L Potassium 4.8 3.5-5.3 [...] 1.0 <0.2-1.2 mg/dL A/G Ratio 2.3 1.1-2.5 P-[place] [employer] Fev er, IgG,IgM by IFA Reviewed date:07/08/2024 03:06:21 PM Interpretation:Negative Performing Lab: Notes/Report: RMSF IgM Titer <1:64 <1:64 INTERPRETIVE INFORMATION: Rickettsia rickettsii ([facility]. Spotted Fever) Ab, IgM Less than [...] IgM results for routine diagnostic testing of [place] Spotted Fever, as the response may not be specific for the agent (resulting in false positives) and the IgM response may be persistent from past infection. Performed By: [facility] [address] [place] [address] Sheep Sticker: Júnior Short MD, PhD CLIA Number: [id number] RMSF IgG Titer <1:64 <1:64 INTERPRETIVE INFORMATION: [facility]ii ([facility]) Ab, IgG Less than 1:64 [...] 132 Performing Lab: Notes/Report: Test performed by [facility], [address] , [facility], [place] [address] Paul West MD, Sheep Sticker CLIA: [id number] Cholesterol 184 <200 mg/dL Triglycerides 128 <150 [...] Interpretation:Normal Performing Lab: Notes/Report: Test performed by [facility] , [address], [place] [address] Paul West MD, Sheep Sticker CLIA: [id number] Magnesium 2.2 1.6-2.4 mg/dL P-Phosphorus Reviewed date:07/08/2024 03:06:22 PM Interpretation:Normal Performing Lab: Notes/Report: Test performed by [facility] , [address], [place] [address] Paul West MD, Sheep Sticker CLIA: [id number] Phosphorus 3.5 2.5-4.5 mg/dL P-PSA Reviewed date:07/08/2024 03:06:22 PM Interpretation:Normal Performing Lab: Notes/Report: Test performed by [facility] [address] , [address], [place] [address] Paul West MD, Sheep Sticker CLIA: [id number] PSA 0.45 <4.00 ng/mL Please note this is an ultrasensitive PSA assay with a lower limit of detection of 0.014 ng/mL. This test is performed by the Juni ECLIA methodology. Values obtained with different assay methods or kits cannot be directly compared. P-TSH reflex to FT4 Reviewed date:07/08/2024 03:06:22 PM Interpretation:Normal Performing Lab: Notes/Report: Test performed by [facility] , [address], [place] [address] Paul West MD, Sheep Sticker CLIA: [id number] TSH reflex to FT4 1.69 0.43-5.25 mU/L P-Microalbumin/Creatinine, R andom Urine Sample Reviewed date:07/08/2024 03:06:22 PM Interpretation:Normal Performing Lab: Notes/Report: Test performed by [facility] , [address], [place] [address] Paul West MD, Sheep Sticker CLIA: [id number] Albumin/Creatinine Ratio, Urine 6 0-30 ug/mg Microalbumin, Urine, Random 0.3 Creatinine, Urine 53.0 P-Vitamin D 25-Hydroxy Reviewed date:07/08/2024 03:06:22 PM Interpretation:28.4 Performing Lab: Notes/Report: Test performed by [facility] [address] [place] [address] , [place] [address] Paul West MD, Sheep Sticker CLIA: [id number] Vitamin D 25-Hydroxy 28.4 30.0-100.0 ng/mL Interpretation of Vitamin D 25 OH: < 20 ng/mL - Deficiency 20 - 29 ng/mL - Insufficiency 30 - 100 ng/mL - Sufficiency > 100 ng/mL - Super-therapeutic- toxicity may occur above this level. Clinical correlation required. MRI : Spine, Cervical, witho ut contrast Reviewed date:12/30/2024 12:21:45 PM Interpretation:Abnormal Performing Lab: Notes/Report: Abnormal Glucose (In-House) Reviewed date:05/26/2025 11:32:29 AM Interpretation: Performing Lab: Notes/Report: blood glucose 178 74 - 106 mg/dL Glycohemoglobin A1c (in hous e) Reviewed date:05/26/2025 11:32:54 AM Interpretation: Performing Lab: Notes/Report: glycohemoglobin 7.6% 5 - 6.5 % Glucose (In-House) Reviewed date:07/04/2024 12:25:56 PM Interpretation:112 Performing Lab: Notes/Report: 112 blood glucose 112 74 - 106 mg/dL Allergy Footnotes Reviewed date:07/08/2024 03:06:22 PM Interpretation: Performing Lab: Notes/Report: Test performed by [facility] [address] [place] [address] , [address], [place] [address] Paul West MD, Sheep Sticker CLIA: [id number] Allergy Footnotes SEE COMMENT Reference Ranges and [...] Neg Reason For Referral Reason [facility] rehab Diagnosis 1 Vertigo (R42) Diagnosis 2 Cervical disc diseas e (M50.90) Diagnosis 3 Disorder of neck (M5 3.82) [facility] [place] Referring Provider First Name Harvinder Referring Provider Last Name Alexander Referring Provider [facility] Referred Provider Physical Therapy, . Referred Provider Specialty Physical The rapist General Notes Irma Coyle 11/21/19 12:47:57 PM > faxed to [facility] PT Referral Priority Routine Diagnosis 1 New daily persistent headache (G44.52) Diagnosis 2 Cervical disc hernia tion (M50.20) Diagnosis 3 Neck pain (M54.2) Diagnosis 4 Dizziness (R42) Referral [facility] Referring Provider First Name Lauri Bender Referring Provider Last Name Loly Referring Provider [facility] Referred Provider Specialty Neurology General Notes Irma Coyle 10:22:36 AM > faxed to Dr. Tamayo at [facility] Referral Priority Routine Diagnosis 1 New daily persistent headache (G44.52) Diagnosis 2 Neck pain (M54.2) Referral [facility] Referring Provider First Name Lauri Bender Referring Provider Last Name Loly Referring Provider Speciality Family Rubin cuellar Referred Provider [facility] Referred Provider Specialty Neurological Surgery General Notes Irma Coyle 01/07/20 25 12:08:46 PM > fax to Dr. Puga's office Referral Priority Routine Medications Medication SIG (Take, Route, Frequency, Duration) Notes Start Date End Date Status Pioglitazone HCl 30 MG 1 tablet Orally O nce a day Active Cetirizine HCl 10 MG 1 tablet Orally Onc e a day; Duration: 30 day(s) Not-Jonathan ing metFORMIN HCl ER 500 MG 2 tablets Orally twice a day Active Farxiga 10 MG Take 1 tablet by ivon th once daily Active OneTouch Verio - 1 test strip fingers tick test two times a day Active Immunizations Vaccine Route Administration Date Status Comme nts COVID 19 Pfizer Unknown 12/23/2020 Administered COVID 19 Pfizer Unknown 01/18/2021 Administered COVID 19 Pfizer Unknown 08/18/2021 Administered Fluzone PF Quad (6-35 months) Unknown 07/26/2021 Administered Fluzone Quad (6months&older) IM Intramuscular 10/10/2023 Administered PNEUMOVAX 23 VACCINE IM Intramuscular 06/28/2019 Administe red Tetanus Tdap-Adacel (over 7yrs) Unknown 04/29/2015 Administered xFlu shot- 6months-36 months of cxu-WEAX-XCNX-trivalent Unknown 07/22/2016 Administered Problems Problem Type SNOMED Code ICD Code Onset Dates Problem Status W/U Status Risk Notes Problem Vitamin D deficiency (26240044) Vitamin D deficiency (E55.9) Active confirmed Problem Osteoarthritis (891592993) Osteoarthritis (M19.90) Active confirmed Problem Prolapsed cervical intervertebral disc (758676897) Cervical disc herniation (M50.20) Active confirmed Problem Peripheral neuropathy (533278103) Peripheral neuropathy (G62.9) Active confirmed Problem Peripheral vascular disease (909788551) Peripheral vascular disease (I73.9) Active confirmed Problem Cervical disc disease (688589866) Cervical disc disease (M50.90) Active confirmed Problem Migraine without aura, not refractory (586910798) Migraine without aura and without status migrainosus, not intractable (G43.009) Active confirmed Problem Neck pain (50589665) Neck pain (M54.2) Active confirmed Problem New daily persistent headache (837288130092971) New daily persistent headache (G44.52) Active confirmed Problem Hyperlipidaemia (23944165) Hyperlipidemia, unspecified hyperlipidemia type (E78.5) Active confirmed Problem Disorder of neck (023429599) Disorder of neck (M53.82) Active confirmed Problem Dyslipidemia (846641945) Dyslipidemia (E78.5) Active confirmed Problem Type II diabetes mellitus without complication (712427074) Type 2 diabetes mellitus without complication, without long-term current use of insulin (E11.9) Active confirmed Problem Arthritis of hip (61388656) Hip arthritis (M16.10) Active confirmed Problem Osteophyte (17514470) 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 Vital Signs Heart Rate 68 /min 05/26/2025 Blood pressure diastolic 70 mm Hg 05/26/2025 Height 69 in 05/26/2025 Blood pressure systolic 112 mm Hg 05/26/2025 Weight 181 lbs 05/26/2025 BMI 26.73 kg/m2 05/26/2025 Encounters Encounter Location Date Provider Diagnosis [facility] [address] [facility] [address] [place] [id number] 07/03/2024 Harvinder [place] Type 2 diabetes mellitus without complication, without long-term current use of insulin E11.9 ; Dyslipidemia E78.5 ; Vitamin D deficiency E55.9 ; Rash R21 ; Fatigue, unspecified type R53.83 ; Prostate cancer screening Z12.5 and Tick bite, unspecified site, sequela W57.XXXS [facility] [address] [facility] [address] [place], [place] [id number] 10/28/2024 Harvinder [place] Acute non-recurrent maxillary sinusitis J01.00 and Rash R21 [facility] [address] [facility] [address] [place], [place] [id number] 11/21/2024 Harvinder [place] Vertigo R42 ; Disord er of neck M53.82 and Cervical disc disease M50.90 [facility] [address] [facility] [address] [place], [place] [id number] 11/25/2024 Harvinder [place] Acute URI J06.9 [facility] [address] [facility] [address] [place], [place] [id number] 11/28/2024 Harvinder [place] Excessive wax in bot h ears H61.23 and Dizziness R42 [facility] [address] [facility] [address] [place], [place] [id number] 12/06/2024 Harvinder [place] Migraine without aur a and without status migrainosus, not intractable G43.009 and Disorder of neck M53.82 [facility] [address] [place], [place] [id number] 12/17/2024 Harvinder [place] New daily persistent headache G44.52 ; Disorder of neck M53.82 ; Cervical disc disease M50.90 ; Osteophyte of cervical spine M25.78 and Dizziness R42 [facility] [address] [facility] [address] [place], [place] [id number] 05/26/2025 Harvinder [place] Type 2 diabetes mellitus without complication, without long-term current use of insulin E11.9 and BMI 26.0-26.9,adult Z68.26 [facility] [address] [facility] [address] [place] [id number] 06/03/2025 R Napoleon Loly [facility] [address] [place], [place] [id number] 07/08/2024 Harvinder [place] [facility] [address] [facility] [address] [place], [place] [id number] 12/05/2024 R Napoleon Loly [facility] [address] [place], [place] [id number] 12/12/2024 Harvinder [place] [facility] [address] [place], [place] [id number] 12/19/2024 Harvinder [place] [facility] [address] [place], [place] [id number] 12/27/2024 Harvinder [place] Neck pain M54.2 ; Cervical disc herniation M50.20 ; Cervical disc disease M50.90 and Osteophyte of cervical spine M25.78 [facility] [address] [place], [place] [id number] 01/17/2025 R Napoleon Loly Disorder of neck M53 .82 [facility] [address] [place] [id number] 02/14/2025 R Napoleon Loly Disorder of neck M53 .82 [facility] [address] [place], [place] [id number] 03/03/2025 Harvinder [place] [facility] [address] [place], [place] [id number] 03/07/2025 Harvinder [place] Disorder of neck M53 .82 Assessments Encounter Date Diagnosis (ICD Code) Assessment Notes Treatment Notes Treatment Clinical Notes Section Notes 07/03/2024 Dyslipidemia (ICD-10 - E78.5) 07/03/2024 Type 2 diabetes mellitus without complication, without long-term current use of insulin (ICD-10 - E11.9) 10/28/2024 Rash (ICD-10 - R21) 10/28/2024 Acute [...] 12/06/2024 Disorder of neck (ICD-10 - M53.82) 12/17/2024 New daily persistent headache (ICD-10 - G44.52) 12/17/2024 Disorder of neck (ICD-10 - M53.82) 12/27/2024 Cervical disc herniation (ICD-10 - M50.20) 01/17/2025 Disorder of neck (ICD-10 - M53.82) 02/14/2025 Disorder of neck (ICD-10 - M53.82) 03/07/2025 Disorder of neck (ICD-10 - M53.82) 05/26/2025 BMI 26.0-26.9,adult (ICD-10 - Z68.26) 05/26/2025 Type 2 diabetes mellitus without complication, without long-term current use of insulin (ICD-10 - E11.9) Patient does not appear to have high blood pressure. He seems to have defective blood glucose test strips. He has already bought some new strips 12/27/2024 Neck pain (ICD-10 - M54.2) 12/17/2024 Cervical disc disease (ICD-10 - M50.90) 12/27/2024 Cervical disc disease (ICD-10 - M50.90) 11/21/2024 Cervical disc disease (ICD-10 - M50.90) 07/03/2024 Vitamin D deficiency (ICD-10 - E55.9) 07/03/2024 Rash (ICD-10 - R21) 12/17/2024 Osteophyte of cervical spine (ICD-10 - M25.78) 12/27/2024 Osteophyte of cervical spine (ICD-10 - M25.78) 12/17/2024 Dizziness (ICD-10 - R42) 07/03/2024 Fatigue, unspecified type (ICD-10 - R53.83) 07/03/2024 Prostate cancer screening (ICD-10 - Z12.5) 07/03/2024 Tick bite, unspecified site, sequela (ICD-10 - W57.XXXS) Plan Of Treatment Pending Test Test Name Order Date Cologuard 06/10/2022 Next Appt Details Provider Name:Harvinder Knisey ry, 08/26/2025 09:30:00 AM, [address], [place], [place], [id number], Insurance Providers Payer Name Payer Address Payer Phone Subscriber Number Group Number Insured Name Patient Relationship to Insured Coverage Start Date Coverage End Date [employer] [address] [place] [address] [id number] KMIBERLY ON, JAYLON Self - patient is the insured Medications Administered Medication Instructions Date of Administration Dosage Notes Dexamethasone 10/10/2023 1 mL Medical (General) History Medical History History ICD Code Diabetes Mellitus Type II Hyperlipidemia Alpha-gal syndrome Cervical Disc Disease Cervical spine osteoarthritis Surgical History Surgery Date(Month/Year) Hospitalization History Reason Date(Month/Year) [facility] ER- Concussion, wedge compression fr acture, elevated BUN 06/27/2019
[2025-06-04 10:44] VITALS: BP 120/78; PULSE 65; RESP 14; O2SAT 98; BMI 26.2
--- NOTE | 2025-06-04 11:29 | EXP.PAIN.SOA ---
[facility] Disclaimer: The information contained in this section may have been updated after the patient was seen, as this information can be updated by other users. Medical History History of lumbar puncture Arthritis Diabetes Tick bite Wedge compression fracture of L1 vertebra Concussion Alpha-gal syndrome Surgical History History of colonoscopy Family History Other Coronary artery disease Social History Smoking Status: Never smoker alcohol intake: never current occupational status: other Travel in the last 8 weeks?: None PM Subjective & Objective Subjective Subjective:: Patient is a pleasant 60-year-old male who presents today for follow-up of his second cervical medial branch block bilaterally C4-C5 and C5-C6 under fluoroscopy on 05/20/2025. He does state that he did have at least 75 to 80% relief after the initial soreness wore off he gave 100% relief. He states it was very temporary though and that he is back to having limited range of motion in his neck. Patient rates it a 5 out of 10 today. He does state that he generally knows that when he is feeling better that he often aggravates the neck pain because he does do more activity. 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 He does state that he frequently noticed more pain with prolonged positioning or when he is having to raise his arms up. He does make mention that during the time that he had improvement with this last injection that he also noticed improvement overall in his headaches. Patient does state he would like to proceed forward with the ablation. He denies any new falls. His Hasmukh has been reviewed and is appropriate. Review of Systems: General: No recent weight changes, no fever, no sleep disturbances Respiratory: No cough, no shortness of air, no recurring pulmonary infections Cardiovascular/peripheral vascular: No chest pain, no palpitations, no edema, no shortness of breath Gastrointestinal: No new onset incontinence, normal bowel movements reported Genitourinary: No new onset incontinence Musculoskeletal: Neck pain Psychiatric: [Normal mood/affect] Neurological: [Denies weakness in extremities], [denies balance issues] Pain at rest (0-10 scale): 5 Objective Objective:: Physical Exam: General: Alert and oriented x3, no acute distress, pleasant and cooperative Lungs: Respirations even and unlabored, symmetrical chest expansion Eyes: PERRL Musculoskeletal: Flexion and extension of cervical [spine] somewhat guarded secondary to pain, [antalgic gait noted] positive Kemps test Neurological: Speech clear, no gross sensory deficit Has patient had previous pain injection?: Yes Percent improvement in pain since last injection: 75 to 80% while numb 100% after Conservative treatment options previously tried: Home exercise plan Length of treatment: Longer than 12 weeks Meds Home Medications and Allergies Home Medications ?Medication ?Instructions ?Recorded ?Confirmed ?Type dapagliflozin propanediol 10 mg 10 mg PO DAILY 11/15/24 06/04/25 History tablet (Farxiga) fluticasone propionate 50 1 spray intranasal DAILY 11/15/24 06/04/25 History mcg/actuation nasal spray,suspension metformin 500 mg tablet,extended 1,000 mg PO BID 11/15/24 06/04/25 History release 24 hr pioglitazone 30 mg tablet 30 mg PO DAILY 11/15/24 06/04/25 History celecoxib 200 mg capsule 200 mg PO DAILY 12/20/24 06/04/25 History sumatriptan succinate 100 mg tablet 100 mg PO DIRECTED 12/20/24 06/04/25 History tizanidine 4 mg tablet 4 mg PO TID 12/20/24 06/04/25 History New Prescriptions to Start Prescriptions: Allergies Allergy/AdvReac Type Severity Reaction Status Date / Time Penicillins Allergy Mild Hives Verified 03/31/25 14:12 Beef Containing Products Allergy Hives Verified 03/31/25 14:12 Milk Containing Products Allergy Hives Verified 03/31/25 14:12 (Dairy) Pork/Porcine Containing Allergy Hives Verified 03/31/25 14:12 Products Assessment and Plan *Assessment and plan (1) Facet arthropathy, cervical: Status: Acute Category: Medical Code(s): M47.812 - Spondylosis without myelopathy or radiculopathy, cervical region (2) Cervical spondylosis: Status: Acute Category: Medical Code(s): M47.812 - Spondylosis without myelopathy or radiculopathy, cervical region Plan Patient has now had 2 successful cervical medial branch blocks with both of them providing 100% relief however temporary. Patient does state that he had 0 out of 10 pain while it was working. Patient again is having limited range of motion of his cervical spine and a positive Kemps test during today's visit. I did review over the risk and benefits of the cervical RFA and he would like to proceed forward with this plan of care. Patient is not on any blood thinners. Patient was counseled that we do typically do 1 side at a time due to the increased pain and tenderness that the cervical RFA can cause. He does state that he would like to start on the left side first. Patient has tried and failed conservative therapy including continued at home stretching exercise for longer than 12 weeks that was physician guided. Patient has also failed oral medications, heat and ice and topicals. Patient will be submitted for a cervical RFA left-sided C4-C5 and C5-C6 under fluoroscopy. We will plan on submitting for the right side following this procedure. Patient has been instructed to contact the clinic with any concerns before the next appointment. Dr. Dunham has reviewed this note and agrees with this plan of care. This note was dictated using voice recognition software and make contain errors or omissions. All injections are used with Lidocaine, Bupivacaine and dexamethasone. Occasionally urine drug screen is needed to verify patient's compliance with our office pain contract. This is ordered based off specific treatments related to chronic pain with the potential to abuse certain medications.
== END 2025-06-04 23:59 | disposition home or self-care (01) ==
LOC: SC.PAIN 09:38
PROVIDERS: PCP Family Medicine; Visit Provider Nurse Practitioner Family
DX: M47.812 Spondylosis without myelopathy or radiculopathy, cervical region (principal)
CPT/HCPCS: 99212; G0463